=== PATIENT | female | born 1970 | race American Indian/Alaskan Native ===

== ENCOUNTER 2016-09-29 20:02 | Emergency (ER) | payer MEDICAID, OTHER ==
--- NOTE | 2016-09-29 20:14 | EDM.PDOC ---
ED HPI DIABETIC EMERGENCY - General Chief Complaint: Diabetic Complaint Stated Complaint: AMB Time Seen by Provider: 09/29/16 20:09 Source of Information: Reports: EMS History Limitations: Reports: Altered mental status - History of Present Illness INITIAL COMMENTS - FREE TEXT/NARRATIVE: EMS states was called to [facility] unresponsive. Pt somnolent but did verbalize wanting to go to bathroom and did so, then was in-out of consciousness, BS 479 @ scene. unable IV for narcan. Pt arrived unresponsive minimal reaction to corneal stim' - Related Data Allergies/ADRs: Allergies Allergy/AdvReac Type Severity Reaction Status Date / Time amoxicillin Allergy Cannot Verified 03/18/16 22:30 Remember cephalexin Allergy Cannot Verified 03/18/16 22:30 Remember ciprofloxacin Allergy Cannot Verified 03/18/16 22:30 Remember fentanyl Allergy Cannot Verified 03/18/16 22:30 Remember nitrofurantoin Allergy Cannot Verified 03/18/16 22:30 Remember NSAIDS (Non-Steroidal Allergy Bleeding Verified 03/18/16 22:30 Anti-Inflamma sumatriptan [From Imitrex] Allergy Hives Verified 03/18/16 22:30 sumatriptan succinate Allergy Hives Verified 03/18/16 22:30 [From Imitrex] tramadol AdvReac Bleeding Verified 03/18/16 22:30 Home Meds: Home Meds Insulin Detemir [Levemir Flexpen] 20 unit SQ BID 07/27/13 [History] Lisinopril 5 mg PO DAILY #30 tablet 09/13/14 [Rx] Multivitamin [Multivitamins] 1 each PO DAILY #30 capsule 09/13/14 [Rx] Ferrous Sulfate [Iron] 325 mg PO DAILY #15 capsule.er 08/07/15 [Rx] Pantoprazole [Protonix] 40 mg PO BIDAC #40 tab.cr 08/07/15 [Rx] buPROPion [Wellbutrin] 100 mg PO BID #14 tablet 08/07/15 [Rx] Insulin Aspart [Novolog Flexpen] 15 unit SQ QID 12/20/15 [History] Apixaban [Eliquis] 5 mg PO BID 06/13/16 [History] Past Medical History HEENT History: Reports: Impaired vision Cardiovascular History: Reports: Hypertension Respiratory History: Reports: Asthma Gastrointestinal History: Reports: GERD, Hepatitis Genitourinary History: Reports: Diabetic nephropathy [employer] History: Reports: , Other (see below) Other OB/BYN History: 4 c-sections Musculoskeletal History: Reports: Amputation Other Musculoskeletal History: bell amp Neurological History: Reports: Neuropathy, diabetic, Neuropathy, peripheral Psychiatric History: Reports: Addiction Endocrine/Metabolic History: Reports: Diabetes, type II, IDDM Hematologic History: Reports: Iron deficiency Immunologic History: Reports: None Oncologic (Cancer) History: Reports: None Dermatologic History: Reports: Cellulitis - Infectious Disease History Infectious Disease History: Reports: MRSA - Past Surgical History Female Surgical History: Reports: section, Hysterectomy Musculoskeletal Surgical History: Reports: Amputation, Other (see below) Other Musculoskeletal Surgeries/Procedures:: Bilateral BKA Social & Family History - Family History Family Medical History: Noncontributory - Tobacco Use Smoking Status *Q: Former Smoker Years of Tobacco use: 25 Packs/Tins Daily: 0.2 Used Tobacco, but Quit: Yes Month Tobacco Last Used: feb 2016 Second Hand Smoke Exposure: Yes - Caffeine Use Caffeine Use: Reports: Coffee, Soda, Tea - Alcohol Use Days Per Week of Alcohol Use: 0 - Recreational Drug Use Recreational Drug Use: No Drug Use in Last 12 Months: Yes Recreational Drug Type: Reports: Methamphetamine Recreational Drug Use Frequency: Not Used In Over 1 Month - Living Situation & Occupation Living situation: Reports: single, with family Occupation: disabled ED ROS GENERAL - Review of Systems Review Of Systems: ROS reveals no pertinent complaints other than HPI. ED EXAM GENERAL NO PERIP PULSE - Physical Exam Exam: See Below Exam Limited By: Altered mental status General Appearance: other (unresponsive with minimal corneal reaction) Eye Exam: bilateral eye: PERRL (ess ER @ 4mm) Ears: normal external exam, normal canal, normal TMs Nose: normal inspection Throat/Mouth: No airway compromise Head: atraumatic Neck: normal inspection Respiratory/Chest: no respiratory distress, no accessory muscle use, rhonchi Cardiovascular: regular rate, rhythm GI/Abdominal: other (BS increase) (Female) Exam: Other Neurological: unresponsive Skin Exam: Warm, Dry Lymphatic: no adenopathy Course - Vital Signs Last Recorded V/S: Last Vital Signs Temp 37.3 C 09/29/16 21:07 Pulse 91 09/29/16 21:07 Resp 19 09/29/16 21:07 BP 91/56 L 09/29/16 21:07 Pulse Ox 100 09/29/16 21:07 - Orders/Labs/Meds Orders: Active Orders 24 hr Category Date Time Status EKG 12 Lead [EKG Documentation Completion] [RC] STAT Care 09/29/16 20:08 Active Insert Urinary Catheter [OM.PC] Q24H Care 09/29/16 20:45 Ordered Urinary Catheter Assessment [RC] ASDIRECTED Care 09/29/16 20:34 Active CULTURE BLOOD [BC] Stat Lab 09/29/16 20:15 Results CULTURE URINE [RM] Stat Lab 09/29/16 21:46 Ordered HCG QUALITATIVE,URINE [URCHEM] Stat Lab 09/29/16 21:46 Ordered Sodium Chloride 0.9% [Normal Saline] 1,000 ml Med 09/29/16 20:30 Active IV ASDIRECTED Medication Orders Sodium Chloride (Normal Saline) 1,000 mls @ 150 mls/hr IV ASDIRECTED BRANDIE Last Admin: 09/29/16 20:32 Dose: 150 mls/hr Labs: Laboratory Tests 09/29/16 09/29/16 09/29/16 Range/Units 20:15 20:15 20:15 WBC 27.6 H* (5.0-10.0) 10^3/uL RBC 3.35 L (4.2-5.4) 10^6/uL Hgb 9.9 L (12.0-16.0) g/dL Hct 28.5 L (37.0-47.0) % MCV 85.1 (80-100) fL MCH 29.6 (27.0-34.0) pg MCHC 34.7 (33.0-35.0) g/dL Plt Count 637 H (150-450) 10^3/uL Neut % (Auto) 91.0 H (42.2-75.2) % Lymph % (Auto) 4.7 L (20.5-50.1) % [place] % (Auto) 4.1 (2-8) % Eos % (Auto) 0.1 L (1.0-3.0) % Baso % (Auto) 0.1 (0.0-1.0) % Add Manual Diff Yes Neutrophils % (Manual) 84 % Band Neutrophils % 7 % Lymphocytes % (Manual) 4 % Monocytes % (Manual) 4 % Eosinophils % (Manual) 1 % ABG pH (7.35-7.45) ABG pCO2 (35-45) mmHg ABG pO2 (70-100) mmHg ABG HCO3 (22-26) mmol/L ABG O2 Saturation (95-100) % ABG Base Excess ((-2)-(+3)) mmol/L Yann Test O2 Delivery Device Oxygen Flow Rate Sodium 126 L (135-145) mmol/L Potassium 4.2 (3.6-5.0) mmol/L Chloride 107 (101-111) mmol/L Carbon Dioxide 12.0 L (21.0-31.0) mmol/L Anion Gap 11.2 BUN 43 H (7-18) mg/dL Creatinine 1.9 H (0.6-1.3) mg/dL Est Cr Clr Drug Dosing TNP Estimated GFR (MDRD) 28 BUN/Creatinine Ratio 22.63 Glucose 398 H (74-105) mg/dL Lactic Acid 1.0 (0.5-2.2) mmol/L Calcium 8.0 L (8.4-10.2) mg/dl Total Bilirubin 0.2 (0.2-1.0) mg/dL AST 10 (10-42) IU/L ALT 13 (10-60) IU/L Alkaline Phosphatase 85 (42-121) IU/L Troponin I 0.02 (0.00-0.02) ng/ml Total Protein 6.2 L (6.7-8.2) g/dl Albumin 1.6 L (3.2-5.5) g/dl Globulin 4.6 Albumin/Globulin Ratio 0.35 Urine Color (YELLOW) Urine Appearance (CLEAR) Urine pH (5.0-9.0) Ur Specific [place] (1.005-1.030) Urine Protein (NEGATIVE) Urine Glucose (UA) (NEGATIVE) Urine Ketones (NEGATIVE) Urine Occult Blood (NEGATIVE) Urine Nitrite (NEGATIVE) Urine Bilirubin (NEGATIVE) Urine Urobilinogen (0.2-1.0) mg/dL Ur Leukocyte Esterase (NEGATIVE) Urine RBC /HPF Urine WBC (0-5/HPF) /HPF Ur Epithelial Cells /HPF Amorphous Sediment (0/HPF) /HPF Urine Bacteria (0-FEW/HPF) /HPF Urine Opiates Screen (NEGATIVE) Ur Oxycodone Screen (NEGATIVE) Urine Methadone Screen (NEGATIVE) Ur Barbiturates Screen (NEGATIVE) U Tricyclic Antidepress (NEGATIVE) Ur Phencyclidine Scrn (NEGATIVE) Ur Amphetamine Screen (NEGATIVE) U Methamphetamines Scrn (NEGATIVE) Urine MDMA Screen (NEGATIVE) U Benzodiazepines Scrn (NEGATIVE) Urine Cocaine Screen (NEGATIVE) U Marijuana (THC) Screen (NEGATIVE) Ethyl Alcohol < 5 mg/dL Ketones 09/29/16 09/29/16 09/29/16 Range/Units 20:15 20:55 20:55 WBC (5.0-10.0) 10^3/uL RBC (4.2-5.4) 10^6/uL Hgb (12.0-16.0) g/dL Hct (37.0-47.0) % MCV (80-100) fL MCH (27.0-34.0) pg MCHC (33.0-35.0) g/dL Plt Count (150-450) 10^3/uL Neut % (Auto) (42.2-75.2) % Lymph % (Auto) (20.5-50.1) % [place] % (Auto) (2-8) % Eos % (Auto) (1.0-3.0) % Baso % (Auto) (0.0-1.0) % Add Manual Diff Neutrophils % (Manual) % Band Neutrophils % % Lymphocytes % (Manual) % Monocytes % (Manual) % Eosinophils % (Manual) % ABG pH (7.35-7.45) ABG pCO2 (35-45) mmHg ABG pO2 (70-100) mmHg ABG HCO3 (22-26) mmol/L ABG O2 Saturation (95-100) % ABG Base Excess ((-2)-(+3)) mmol/L Yann Test O2 Delivery Device Oxygen Flow Rate Sodium (135-145) mmol/L Potassium (3.6-5.0) mmol/L Chloride (101-111) mmol/L Carbon Dioxide (21.0-31.0) mmol/L Anion Gap BUN (7-18) mg/dL Creatinine (0.6-1.3) mg/dL Est Cr Clr Drug Dosing Estimated GFR (MDRD) BUN/Creatinine Ratio Glucose (74-105) mg/dL Lactic Acid (0.5-2.2) mmol/L Calcium (8.4-10.2) mg/dl Total Bilirubin (0.2-1.0) mg/dL AST (10-42) IU/L ALT (10-60) IU/L Alkaline Phosphatase (42-121) IU/L Troponin I (0.00-0.02) ng/ml Total Protein (6.7-8.2) g/dl Albumin (3.2-5.5) g/dl Globulin Albumin/Globulin Ratio Urine Color Brown (YELLOW) Urine Appearance Turbid (CLEAR) Urine pH 5.0 (5.0-9.0) Ur Specific [place] 1.020 (1.005-1.030) Urine Protein >=300 H (NEGATIVE) Urine Glucose (UA) >=1000 H (NEGATIVE) Urine Ketones 15 H (NEGATIVE) Urine Occult Blood Large H (NEGATIVE) Urine Nitrite Negative (NEGATIVE) Urine Bilirubin Moderate H (NEGATIVE) Urine Urobilinogen 1.0 (0.2-1.0) mg/dL Ur Leukocyte Esterase Small H (NEGATIVE) Urine RBC >100 H /HPF Urine WBC 30-40 H (0-5/HPF) /HPF Ur Epithelial Cells Many H /HPF Amorphous Sediment Moderate H (0/HPF) /HPF Urine Bacteria Many H (0-FEW/HPF) /HPF Urine Opiates Screen Negative (NEGATIVE) Ur Oxycodone Screen Negative (NEGATIVE) Urine Methadone Screen Negative (NEGATIVE) Ur Barbiturates Screen Negative (NEGATIVE) U Tricyclic Antidepress Negative (NEGATIVE) Ur Phencyclidine Scrn Negative (NEGATIVE) Ur Amphetamine Screen Positive H (NEGATIVE) U Methamphetamines Scrn Positive H (NEGATIVE) Urine MDMA Screen Negative (NEGATIVE) U Benzodiazepines Scrn Negative (NEGATIVE) Urine Cocaine Screen Negative (NEGATIVE) U Marijuana (THC) Screen Negative (NEGATIVE) Ethyl Alcohol mg/dL Ketones Negative 09/29/16 Range/Units 21:07 WBC (5.0-10.0) 10^3/uL RBC (4.2-5.4) 10^6/uL Hgb (12.0-16.0) g/dL Hct (37.0-47.0) % MCV (80-100) fL MCH (27.0-34.0) pg MCHC (33.0-35.0) g/dL Plt Count (150-450) 10^3/uL Neut % (Auto) (42.2-75.2) % Lymph % (Auto) (20.5-50.1) % [place] % (Auto) (2-8) % Eos % (Auto) (1.0-3.0) % Baso % (Auto) (0.0-1.0) % Add Manual Diff Neutrophils % (Manual) % Band Neutrophils % % Lymphocytes % (Manual) % Monocytes % (Manual) % Eosinophils % (Manual) % ABG pH 7.26 L (7.35-7.45) ABG pCO2 29 L (35-45) mmHg ABG pO2 86 (70-100) mmHg ABG HCO3 12.3 L (22-26) mmol/L ABG O2 Saturation 98 (95-100) % ABG Base Excess -13 L ((-2)-(+3)) mmol/L Yann Test pos O2 Delivery Device Room air Oxygen Flow Rate 0 Sodium (135-145) mmol/L Potassium (3.6-5.0) mmol/L Chloride (101-111) mmol/L Carbon Dioxide (21.0-31.0) mmol/L Anion Gap BUN (7-18) mg/dL Creatinine (0.6-1.3) mg/dL Est Cr Clr Drug Dosing Estimated GFR (MDRD) BUN/Creatinine Ratio Glucose (74-105) mg/dL Lactic Acid (0.5-2.2) mmol/L Calcium (8.4-10.2) mg/dl Total Bilirubin (0.2-1.0) mg/dL AST (10-42) IU/L ALT (10-60) IU/L Alkaline Phosphatase (42-121) IU/L Troponin I (0.00-0.02) ng/ml Total Protein (6.7-8.2) g/dl Albumin (3.2-5.5) g/dl Globulin Albumin/Globulin Ratio Urine Color (YELLOW) Urine Appearance (CLEAR) Urine pH (5.0-9.0) Ur Specific [place] (1.005-1.030) Urine Protein (NEGATIVE) Urine Glucose (UA) (NEGATIVE) Urine Ketones (NEGATIVE) Urine Occult Blood (NEGATIVE) Urine Nitrite (NEGATIVE) Urine Bilirubin (NEGATIVE) Urine Urobilinogen (0.2-1.0) mg/dL Ur Leukocyte Esterase (NEGATIVE) Urine RBC /HPF Urine WBC (0-5/HPF) /HPF Ur Epithelial Cells /HPF Amorphous Sediment (0/HPF) /HPF Urine Bacteria (0-FEW/HPF) /HPF Urine Opiates Screen (NEGATIVE) Ur Oxycodone Screen (NEGATIVE) Urine Methadone Screen (NEGATIVE) Ur Barbiturates Screen (NEGATIVE) U Tricyclic Antidepress (NEGATIVE) Ur Phencyclidine Scrn (NEGATIVE) Ur Amphetamine Screen (NEGATIVE) U Methamphetamines Scrn (NEGATIVE) Urine MDMA Screen (NEGATIVE) U Benzodiazepines Scrn (NEGATIVE) Urine Cocaine Screen (NEGATIVE) U Marijuana (THC) Screen (NEGATIVE) Ethyl Alcohol mg/dL Ketones Meds: Medications Generic Name Dose Route Start Last Admin Trade Name Freq PRN Reason Stop Dose Admin Sodium Chloride 1,000 mls @ 150 mls/hr 09/29/16 20:30 09/29/16 20:32 Normal Saline IV 150 mls/hr ASDIRECTED BRANDIE Administration Discontinued Medications Generic Name Dose Route Start Last Admin Trade Name Freq PRN Reason Stop Dose Admin Gentamicin Sulfate 1,000 mg 09/29/16 21:46 Gentamicin IV 09/29/16 21:47 ONETIME ONE Insulin Human Regular 5 unit 09/29/16 21:22 Novolin R IVPUSH 09/29/16 21:23 ONETIME ONE Protocol Naloxone HCl 2 mg 09/29/16 20:56 09/29/16 21:01 Narcan IVPUSH 09/29/16 20:57 2 mg ONETIME ONE Administration - Re-Assessments/Exams Free Text/Narrative Re-Assessment/Exam: 09/29/16 20:23 s/p narcan=woke up more alert 09/29/16 21:50 Pt in out responsiveness. Departure - Departure Time of Disposition: 21:50 Disposition: DC/Tfer to Acute Hospital 02 Condition: fair Clinical Impression: Dehydration, Methamphetamine abuse DKA (diabetic ketoacidoses) Qualifiers: Diabetes mellitus type: type 2 Diabetes mellitus complication detail: without coma Qualified Code(s): E13.10 - Other specified diabetes mellitus with ketoacidosis without coma UTI (urinary tract infection) Qualifiers: Urinary tract infection type: site unspecified Hematuria presence: with hematuria Qualified Code(s): N39.0 - Urinary tract infection, site not specified ; R31.9 - Hematuria, unspecified Forms: Interfacility Transfer EMTALA - My Orders Last 24 Hours: My Active Orders 09/29/16 20:08 EKG 12 Lead [EKG Documentation Completion] [RC] STAT 09/29/16 20:15 CULTURE BLOOD [BC] Stat 09/29/16 20:30 Sodium Chloride 0.9% [Normal Saline] 1,000 ml IV ASDIRECTED 09/29/16 20:34 Urinary Catheter Assessment [RC] ASDIRECTED 09/29/16 20:45 Insert Urinary Catheter [OM.PC] Q24H 09/29/16 21:46 CULTURE URINE [RM] Stat HCG QUALITATIVE,URINE [URCHEM] Stat - Assessment/Plan Last 24 Hours: My Active Orders 09/29/16 20:08 EKG 12 Lead [EKG Documentation Completion] [RC] STAT 09/29/16 20:15 CULTURE BLOOD [BC] Stat 09/29/16 20:30 Sodium Chloride 0.9% [Normal Saline] 1,000 ml IV ASDIRECTED 09/29/16 20:34 Urinary Catheter Assessment [RC] ASDIRECTED 09/29/16 20:45 Insert Urinary Catheter [OM.PC] Q24H 09/29/16 21:46 CULTURE URINE [RM] Stat HCG QUALITATIVE,URINE [URCHEM] Stat
[2016-09-29] MEDS ORDERED: Sodium Chloride 0.9% 1,000 ML IV SCH (20:30)
[2016-09-29 20:41] LABS: CHLORIDE,CL 107 mmol/L (101-111); SODIUM,NA 126 mmol/L (135-145)
[2016-09-29] MEDS ORDERED: Naloxone 2 MG/2 ML Syringe IVPUSH ONE (20:56)
[2016-09-29 21:16] LABS: O2 DELIVERY DEVICE ROOM AIR; O2 FLOW RATE 0
[2016-09-29 21:17] LABS: BASE EXCESS ARTERIAL -13 mmol/L ((-2)-(+3)); BICARBONATE,ARTERIAL 12.3 mmol/L (22-26); O2 SATURATION ARTERIAL 98 % (95-100); PCO2 ARTERIAL 29 mmHg (35-45); PO2 ARTERIAL 86 mmHg (70-100)
[2016-09-29 21:19] LABS: ALLEN TEST pos
[2016-09-29] MEDS ORDERED: Insulin Regular, Human 100 Units/ML 10 ML Vial IVPUSH ONE (21:22)
[2016-09-29] MEDS ORDERED: Gentamicin Pediatric 10 MG/ML 2 ML SDV IV ONE (21:46)
[2016-09-29 22:18] VITALS: BP 91/52
--- NOTE | 2016-10-01 07:15 | EKG ---
09/29/2016- MAE DYKES - EKG done on a 46-year-old female, showing sinus rhythm, heart rate of 90 beats per minute, normal axis, normal intervals, no acute ST wave changes. [facility] /[id number]
== END 2016-09-29 22:39 ==
LOC: DL.ED 20:02
DX: E13.10 Other specified diabetes mellitus with ketoacidosis without coma (principal); N39.0 Urinary tract infection, site not specified; F15.10 Other stimulant abuse, uncomplicated; E86.0 Dehydration; I10 Essential (primary) hypertension; J45.909 Unspecified asthma, uncomplicated; K21.9 Gastro-esophageal reflux disease without esophagitis; Z79.4 Long term (current) use of insulin; Z79.899 Other long term (current) drug therapy; Z87.891 Personal history of nicotine dependence; Z88.1 Allergy status to other antibiotic agents; Z88.5 Allergy status to narcotic agent; Z88.8 Allergy status to other drugs, medicaments and biological substances; Z90.710 Acquired absence of both cervix and uterus; Z98.890 Other specified postprocedural states
CPT/HCPCS: 36415; 36600; 51702; 80053; 80305; 81001; 81025; 82009; 82803; 82962; 83605; 84484; 85025; 87040; 87077; 87086; 87088; 87186; 93005; 96365; 96366; 96368; 96375; 99285; G0480; J1580; J1815; J2310; J7030; J7050

== ENCOUNTER 2016-10-14 06:22 | Inpatient (IN) | payer MEDICAID, OTHER ==
--- NOTE | 2016-10-14 06:16 | EDM.PDOC ---
<Prudencio Dennis M - Last Filed: 10/14/16 06:11> ED HPI GENERAL MEDICAL PROBLEM - General Stated Complaint: IN BY AMBULANCE Time Seen by Provider: 10/14/16 06:05 Source of Information: Reports: Patient History Limitations: Reports: No limitations - History of Present Illness INITIAL COMMENTS - FREE TEXT/NARRATIVE: This 46 yo female patient reports to the ED with [facility] due to right sided weakness and numbness in her right upper extremity. The patient also reports generalized vision changes ("everything is blurry"). The patient reports she was normal last night. The patient denies any recent falls. The patient was admitted to [place] about 1 week ago for low blood pressure, but released after 2 eays. The patient reports a history of a TIA, diabetes and hypertension. Onset: today Duration: Constant Location: Reports: head, upper extremity, right Quality: Reports: Dull Severity: moderate Improves with: Reports: None Worsens with: Reports: None Associated Symptoms: Reports: weakness (right side) - Related Data Allergies Allergy/AdvReac Type Severity Reaction Status Date / Time amoxicillin Allergy Cannot Verified 10/14/16 06:48 Remember cephalexin Allergy Cannot Verified 10/14/16 06:48 Remember ciprofloxacin Allergy Cannot Verified 10/14/16 06:48 Remember fentanyl Allergy Cannot Verified 10/14/16 06:48 Remember nitrofurantoin Allergy Cannot Verified 10/14/16 06:48 Remember NSAIDS (Non-Steroidal Allergy Bleeding Verified 10/14/16 06:48 Anti-Inflamma sumatriptan [From Imitrex] Allergy Hives Verified 10/14/16 06:48 sumatriptan succinate Allergy Hives Verified 10/14/16 06:48 [From Imitrex] tramadol AdvReac Bleeding Verified 10/14/16 06:48 Home Meds: Home Meds Insulin Detemir [Levemir Flexpen] 20 unit SQ BID 07/27/13 [History] Lisinopril 5 mg PO DAILY #30 tablet 09/13/14 [Rx] Multivitamin [Multivitamins] 1 each PO DAILY #30 capsule 09/13/14 [Rx] Ferrous Sulfate [Iron] 325 mg PO DAILY #15 capsule.er 08/07/15 [Rx] Pantoprazole [ProTONIX] 40 mg PO BIDAC #40 tab.cr 08/07/15 [Rx] buPROPion [Wellbutrin] 100 mg PO BID #14 tablet 08/07/15 [Rx] Insulin Aspart [Novolog Flexpen] 15 unit SQ QID 12/20/15 [History] Apixaban [Eliquis] 5 mg PO BID 06/13/16 [History] Past Medical History HEENT History: Reports: Impaired vision Cardiovascular History: Reports: Hypertension Respiratory History: Reports: Asthma Gastrointestinal History: Reports: GERD, Hepatitis Genitourinary History: Reports: Diabetic nephropathy 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: , Other (see below) Other OB/BYN History: 4 c-sections Musculoskeletal History: Reports: Amputation Other Musculoskeletal History: bell amp Neurological History: Reports: Neuropathy, diabetic, Neuropathy, peripheral Psychiatric History: Reports: Addiction Endocrine/Metabolic History: Reports: Diabetes, type II, IDDM Hematologic History: Reports: Iron deficiency Immunologic History: Reports: None Oncologic (Cancer) History: Reports: None Dermatologic History: Reports: Cellulitis - Infectious Disease History Infectious Disease History: Reports: MRSA - Past Surgical History Female Surgical History: Reports: section, Hysterectomy Musculoskeletal Surgical History: Reports: Amputation, Other (see below) Other Musculoskeletal Surgeries/Procedures:: Bilateral BKA Social & Family History - Family History Family Medical History: Noncontributory - Tobacco Use Smoking Status *Q: Former Smoker Years of Tobacco use: 25 Packs/Tins Daily: 0.2 Used Tobacco, but Quit: Yes Month Tobacco Last Used: feb 2016 Second Hand Smoke Exposure: Yes - Caffeine Use Caffeine Use: Reports: Coffee, Soda, Tea - Alcohol Use Days Per Week of Alcohol Use: 0 - Recreational Drug Use Recreational Drug Use: No Drug Use in Last 12 Months: Yes Recreational Drug Type: Reports: Methamphetamine Recreational Drug Use Frequency: Not Used In Over 1 Month - Living Situation & Occupation Living situation: Reports: single, with family Occupation: disabled ED ROS GENERAL - Review of Systems Review Of Systems: ROS reveals no pertinent complaints other than HPI. ED EXAM, GENERAL - Physical Exam Exam: See Below Exam Limited By: No limitations General Appearance: alert, WD/WN, moderate distress, thin Eye Exam: bilateral eye: EOMI, normal inspection, PERRL Ears: normal external exam, normal canal, hearing grossly normal, normal TMs Nose: normal inspection, normal mucosa, no blood Throat/Mouth: Normal inspection, Normal lips, Normal teeth, Normal gums, Normal oropharynx, Normal voice, No airway compromise Head: atraumatic, normocephalic Neck: normal inspection, supple, non-tender, full range of motion Respiratory/Chest: no respiratory distress, lungs clear, normal breath sounds, no accessory muscle use, chest non-tender Cardiovascular: normal peripheral pulses, regular rate, rhythm, no edema, no gallop, no JVD, no murmur, no rub GI/Abdominal: normal bowel sounds, soft, non tender, no organomegaly, no distention, no abnormal bruit, no mass (Female) Exam: Deferred Rectal (Female) Exam: Deferred Extremities: other (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 Bilateral below the knee amputations) Neurological: alert, oriented, CN II-XII intact, normal cognition Psychiatric: anxious, flat affect Skin Exam: Warm, Dry, Intact, Normal color, No rash Lymphatic: no adenopathy Course - Vital Signs Last Recorded V/S: Last Vital Signs Temp 35.7 C 10/14/16 06:00 Pulse 83 10/14/16 06:00 Resp 16 10/14/16 06:00 BP 109/73 10/14/16 06:00 Pulse Ox 100 10/14/16 06:00 - Orders/Labs/Meds Orders: Active Orders 24 hr Category Date Time Status Blood Glucose Check, Bedside [RC] ONETIME Care 10/14/16 07:48 Active EKG Documentation Completion [RC] URGENT Care 10/14/16 06:04 Active Sodium Chloride 0.9% [Normal Saline] 1,000 ml Med 10/14/16 07:51 Active IV ONETIME Medication Orders Sodium Chloride (Normal Saline) 1,000 mls @ 150 mls/hr IV ONETIME ONE Stop: 10/14/16 14:30 Labs: Laboratory Tests 10/14/16 10/14/16 10/14/16 Range/Units 06:13 06:13 06:13 WBC 13.2 H (5.0-10.0) 10^3/uL RBC 2.71 L (4.2-5.4) 10^6/uL Hgb 7.7 L (12.0-16.0) g/dL Hct 22.9 L (37.0-47.0) % MCV 84.5 (80-100) fL MCH 28.4 (27.0-34.0) pg MCHC 33.6 (33.0-35.0) g/dL Plt Count 874 H (150-450) 10^3/uL Neut % (Auto) 72.3 (42.2-75.2) % Lymph % (Auto) 18.4 L (20.5-50.1) % [place] % (Auto) 7.4 (2-8) % Eos % (Auto) 1.7 (1.0-3.0) % Baso % (Auto) 0.2 (0.0-1.0) % Add Manual Diff Yes Neutrophils % (Manual) 72 % Band Neutrophils % 1 % Lymphocytes % (Manual) 22 % Monocytes % (Manual) 3 % Eosinophils % (Manual) 2 % PT 40.4 H (9.0-12.0) SEC INR 4.0 H (0.9-1.2) ABG pH (7.35-7.45) ABG pCO2 (35-45) mmHg ABG pO2 (70-100) mmHg ABG HCO3 (22-26) mmol/L ABG O2 Saturation (95-100) % ABG Base Excess ((-2)-(+3)) mmol/L Yann Test O2 Delivery Device Oxygen Flow Rate Sodium 123 L (135-145) mmol/L Potassium 4.1 (3.6-5.0) mmol/L Chloride 99 L (101-111) mmol/L Carbon Dioxide 16.0 L (21.0-31.0) mmol/L Anion Gap 12.1 BUN 22 H (7-18) mg/dL Creatinine 1.9 H (0.6-1.3) mg/dL Est Cr Clr Drug Dosing 28.70 mL/min Estimated GFR (MDRD) 28 BUN/Creatinine Ratio 11.57 Glucose 635 H* (74-105) mg/dL Calcium 7.7 L (8.4-10.2) mg/dl Total Bilirubin 0.3 (0.2-1.0) mg/dL AST 10 (10-42) IU/L ALT 10 (10-60) IU/L Alkaline Phosphatase 93 (42-121) IU/L Troponin I < 0.02 (0.00-0.02) ng/ml Total Protein 6.1 L (6.7-8.2) g/dl Albumin 1.4 L (3.2-5.5) g/dl Globulin 4.7 Albumin/Globulin Ratio 0.30 Urine Color (YELLOW) Urine Appearance (CLEAR) Urine pH (5.0-9.0) Ur Specific [place] (1.005-1.030) Urine Protein (NEGATIVE) Urine Glucose (UA) (NEGATIVE) Urine Ketones (NEGATIVE) Urine Occult Blood (NEGATIVE) Urine Nitrite (NEGATIVE) Urine Bilirubin (NEGATIVE) Urine Urobilinogen (0.2-1.0) mg/dL Ur Leukocyte Esterase (NEGATIVE) Urine RBC /HPF Urine WBC (0-5/HPF) /HPF Ur Epithelial Cells /HPF Urine Bacteria (0-FEW/HPF) /HPF Urine Other Urine Yeast (0/HPF) /HPF Urine Opiates Screen (NEGATIVE) Ur Oxycodone Screen (NEGATIVE) Urine Methadone Screen (NEGATIVE) Ur Barbiturates Screen (NEGATIVE) U Tricyclic Antidepress (NEGATIVE) Ur Phencyclidine Scrn (NEGATIVE) Ur Amphetamine Screen (NEGATIVE) U Methamphetamines Scrn (NEGATIVE) Urine MDMA Screen (NEGATIVE) U Benzodiazepines Scrn (NEGATIVE) Urine Cocaine Screen (NEGATIVE) U Marijuana (THC) Screen (NEGATIVE) Ketones 10/14/16 10/14/16 10/14/16 Range/Units 06:13 06:45 06:45 WBC (5.0-10.0) 10^3/uL RBC (4.2-5.4) 10^6/uL Hgb (12.0-16.0) g/dL Hct (37.0-47.0) % MCV (80-100) fL MCH (27.0-34.0) pg MCHC (33.0-35.0) g/dL Plt Count (150-450) 10^3/uL Neut % (Auto) (42.2-75.2) % Lymph % (Auto) (20.5-50.1) % Bucks % (Auto) (2-8) % Eos % (Auto) (1.0-3.0) % Baso % (Auto) (0.0-1.0) % Add Manual Diff Neutrophils % (Manual) % Band Neutrophils % % Lymphocytes % (Manual) % Monocytes % (Manual) % Eosinophils % (Manual) % PT (9.0-12.0) SEC INR (0.9-1.2) ABG pH (7.35-7.45) ABG pCO2 (35-45) mmHg ABG pO2 (70-100) mmHg ABG HCO3 (22-26) mmol/L ABG O2 Saturation (95-100) % ABG Base Excess ((-2)-(+3)) mmol/L Yann Test O2 Delivery Device Oxygen Flow Rate Sodium (135-145) mmol/L Potassium (3.6-5.0) mmol/L Chloride (101-111) mmol/L Carbon Dioxide (21.0-31.0) mmol/L Anion Gap BUN (7-18) mg/dL Creatinine (0.6-1.3) mg/dL Est Cr Clr Drug Dosing mL/min Estimated GFR (MDRD) BUN/Creatinine Ratio Glucose (74-105) mg/dL Calcium (8.4-10.2) mg/dl Total Bilirubin (0.2-1.0) mg/dL AST (10-42) IU/L ALT (10-60) IU/L Alkaline Phosphatase (42-121) IU/L Troponin I (0.00-0.02) ng/ml Total Protein (6.7-8.2) g/dl Albumin (3.2-5.5) g/dl Globulin Albumin/Globulin Ratio Urine Color Yellow (YELLOW) Urine Appearance Turbid (CLEAR) Urine pH 5.5 (5.0-9.0) Ur Specific [place] 1.015 (1.005-1.030) Urine Protein >=300 H (NEGATIVE) Urine Glucose (UA) 500 H (NEGATIVE) Urine Ketones Negative (NEGATIVE) Urine Occult Blood Large H (NEGATIVE) Urine Nitrite Negative (NEGATIVE) Urine Bilirubin Negative (NEGATIVE) Urine Urobilinogen 0.2 (0.2-1.0) mg/dL Ur Leukocyte Esterase Small H (NEGATIVE) Urine RBC 5-10 H /HPF Urine WBC Semi-packed H (0-5/HPF) /HPF Ur Epithelial Cells Rare /HPF Urine Bacteria Occasional (0-FEW/HPF) /HPF Urine Other Urine Yeast Moderate H (0/HPF) /HPF Urine Opiates Screen Negative (NEGATIVE) Ur Oxycodone Screen Negative (NEGATIVE) Urine Methadone Screen Negative (NEGATIVE) Ur Barbiturates Screen Negative (NEGATIVE) U Tricyclic Antidepress Negative (NEGATIVE) Ur Phencyclidine Scrn Negative (NEGATIVE) Ur Amphetamine Screen Negative (NEGATIVE) U Methamphetamines Scrn Negative (NEGATIVE) Urine MDMA Screen Negative (NEGATIVE) U Benzodiazepines Scrn Negative (NEGATIVE) Urine Cocaine Screen Negative (NEGATIVE) U Marijuana (THC) Screen Positive H (NEGATIVE) Ketones Negative 10/14/16 Range/Units 07:50 WBC (5.0-10.0) 10^3/uL RBC (4.2-5.4) 10^6/uL Hgb (12.0-16.0) g/dL Hct (37.0-47.0) % MCV (80-100) fL MCH (27.0-34.0) pg MCHC (33.0-35.0) g/dL Plt Count (150-450) 10^3/uL Neut % (Auto) (42.2-75.2) % Lymph % (Auto) (20.5-50.1) % [place] % (Auto) (2-8) % Eos % (Auto) (1.0-3.0) % Baso % (Auto) (0.0-1.0) % Add Manual Diff Neutrophils % (Manual) % Band Neutrophils % % Lymphocytes % (Manual) % Monocytes % (Manual) % Eosinophils % (Manual) % PT (9.0-12.0) SEC INR (0.9-1.2) ABG pH 7.27 L (7.35-7.45) ABG pCO2 36 (35-45) mmHg ABG pO2 80 (70-100) mmHg ABG HCO3 16.2 L (22-26) mmol/L ABG O2 Saturation 96 (95-100) % ABG Base Excess -9 L ((-2)-(+3)) mmol/L Yann Test pos O2 Delivery Device Room air Oxygen Flow Rate 0 Sodium (135-145) mmol/L Potassium (3.6-5.0) mmol/L Chloride (101-111) mmol/L Carbon Dioxide (21.0-31.0) mmol/L Anion Gap BUN (7-18) mg/dL Creatinine (0.6-1.3) mg/dL Est Cr Clr Drug Dosing mL/min Estimated GFR (MDRD) BUN/Creatinine Ratio Glucose (74-105) mg/dL Calcium (8.4-10.2) mg/dl Total Bilirubin (0.2-1.0) mg/dL AST (10-42) IU/L ALT (10-60) IU/L Alkaline Phosphatase (42-121) IU/L Troponin I (0.00-0.02) ng/ml Total Protein (6.7-8.2) g/dl Albumin (3.2-5.5) g/dl Globulin Albumin/Globulin Ratio Urine Color (YELLOW) Urine Appearance (CLEAR) Urine pH (5.0-9.0) Ur Specific [place] (1.005-1.030) Urine Protein (NEGATIVE) Urine Glucose (UA) (NEGATIVE) Urine Ketones (NEGATIVE) Urine Occult Blood (NEGATIVE) Urine Nitrite (NEGATIVE) Urine Bilirubin (NEGATIVE) Urine Urobilinogen (0.2-1.0) mg/dL Ur Leukocyte Esterase (NEGATIVE) Urine RBC /HPF Urine WBC (0-5/HPF) /HPF Ur Epithelial Cells /HPF Urine Bacteria (0-FEW/HPF) /HPF Urine Other Urine Yeast (0/HPF) /HPF Urine Opiates Screen (NEGATIVE) Ur Oxycodone Screen (NEGATIVE) Urine Methadone Screen (NEGATIVE) Ur Barbiturates Screen (NEGATIVE) U Tricyclic Antidepress (NEGATIVE) Ur Phencyclidine Scrn (NEGATIVE) Ur Amphetamine Screen (NEGATIVE) U Methamphetamines Scrn (NEGATIVE) Urine MDMA Screen (NEGATIVE) U Benzodiazepines Scrn (NEGATIVE) Urine Cocaine Screen (NEGATIVE) U Marijuana (THC) Screen (NEGATIVE) Ketones Meds: Medications Generic Name Dose Route Start Last Admin Trade Name Freq PRN Reason Stop Dose Admin Sodium Chloride 1,000 mls @ 150 mls/hr 10/14/16 07:51 Normal Saline IV 10/14/16 14:30 ONETIME ONE Departure - Departure Disposition: Admitted As Inpatient 65 Clinical Impression: Hyponatremia syndrome, Weakness of right arm Diabetic acidosis without coma Qualifiers: Diabetes mellitus type: type 2 Qualified Code(s): E13.10 - Other specified diabetes mellitus with ketoacidosis without coma Forms: ED Department Discharge - My Orders Last 24 Hours: My Active Orders 10/14/16 07:48 Blood Glucose Check, Bedside [RC] ONETIME 10/14/16 07:51 Sodium Chloride 0.9% [Normal Saline] 1,000 ml IV ONETIME - Assessment/Plan Last 24 Hours: My Active Orders 10/14/16 07:48 Blood Glucose Check, Bedside [RC] ONETIME 10/14/16 07:51 Sodium Chloride 0.9% [Normal Saline] 1,000 ml IV ONETIME <Luca Tyler - Last Filed: 10/14/16 08:20> ED HPI GENERAL MEDICAL PROBLEM - History of Present Illness INITIAL COMMENTS - FREE TEXT/NARRATIVE: Assumed care of pt from Prudencio HERNANDEZ at [id number] shift change with lab results complete and pt pending admission for right sided weakness, diabetic acidosis with hyperglycemia, without ketosis, and hyponatremia. Lower Abdomen Pain Score (Numeric/FACES): 5 Course - Radiology Interpretation Free Text/Narrative:: CT Head: Rad. report reviewed. Departure - Departure Time of Disposition: 08:00 (Admit to Dr. Moralez) Condition: serious
[2016-10-14 06:55] LABS: CHLORIDE,CL 99 mmol/L (101-111); SODIUM,NA 123 mmol/L (135-145)
[2016-10-14] MEDS ORDERED: Sodium Chloride 0.9% 1,000 ML IV ONE (07:51)
[2016-10-14 07:55] LABS: O2 DELIVERY DEVICE ROOM AIR; O2 FLOW RATE 0
[2016-10-14 07:56] LABS: BASE EXCESS ARTERIAL -9 mmol/L ((-2)-(+3)); BICARBONATE,ARTERIAL 16.2 mmol/L (22-26); O2 SATURATION ARTERIAL 96 % (95-100); PCO2 ARTERIAL 36 mmHg (35-45); PO2 ARTERIAL 80 mmHg (70-100)
[2016-10-14 07:58] LABS: ALLEN TEST pos
[2016-10-14 09:27] VITALS: BP 109/70
[2016-10-14] MEDS ORDERED: Zolpidem 5 MG Tab PO PRN (09:31)
[2016-10-14] MEDS ORDERED: Acetaminophen/HYDROcodone 325-10 MG Tab PO PRN (09:31)
[2016-10-14] MEDS ORDERED: Promethazine 25 MG/ML SDV IM PRN (09:31)
[2016-10-14] MEDS ORDERED: Ondansetron 4 MG/2 ML SDV IVPUSH PRN (09:31)
[2016-10-14] MEDS ORDERED: Acetaminophen 325 MG Tab PO PRN (09:31)
[2016-10-14] MEDS ORDERED: Polyethylene Glycol 3350 Powder 17 GM Packet PO PRN (09:31)
[2016-10-14] MEDS ORDERED: Enoxaparin 30 MG/0.3 ML Syringe SUBCUT SCH (09:45)
[2016-10-14] MEDS ORDERED: Sodium Chloride 0.9% 1,000 ML IV SCH (09:45)
[2016-10-14] MEDS ORDERED: Fluconazole 100 MG Tab PO ONE (09:45)
[2016-10-14] MEDS ORDERED: Ondansetron 4 MG Tab.DIS PO PRN (09:52)
[2016-10-14] MEDS ORDERED: Lisinopril 5 MG Tab PO SCH (10:00)
[2016-10-14] MEDS ORDERED: atorvaSTATin 20 MG Tab PO SCH (10:00)
[2016-10-14] MEDS ORDERED: Multivitamins,Therapeutic Tab PO SCH (10:00)
[2016-10-14] MEDS ORDERED: Pantoprazole 40 MG Tab.CR PO SCH (10:00)
[2016-10-14] MEDS ORDERED: Non-Formulary Medication 1 Each (Bupropion [Wellbutrin] 100 MG) PO SCH (10:00)
[2016-10-14] MEDS ORDERED: cefTRIAXone 1 GM in Sodium Chloride 0.9% 50 ML IV SCH (10:00)
[2016-10-14] MEDS ORDERED: Insulin Detemir 100 Units/ML 3 ML Pen SUBCUT SCH (10:00)
[2016-10-14] MEDS ORDERED: Ferrous Sulfate 325 MG Tab PO SCH (10:15)
--- NOTE | 2016-10-14 10:37 | PCM.HP ---
H&P History of Present Illness - General Date of Service: 10/14/16 Admit Problem/Dx: Admission Diagnosis/Problem Admission Diagnosis/Problem Hyperglycemia Source of Information: Patient History Limitations: Reports: No limitations - History of Present Illness Initial Comments - Free Text/Narative: patient present to the emergency room complaining of right-sided (arm more than leg) weakness in addition to generalized weakness started the yesterday evening. Her brother checked her blood sugar and device give breathing as high. She took her insulin as prescribed. On review of systems patient admitted having urinary frequency and dysuria for the last 3 weeks. At that time she went to my not for high blood pressure. According to her they prescribed her antibiotics but she never filled the prescription. Please ago [facility] [place] and was prescribed doxycycline for UTI and has been taking it for the last 2 days. Symptoms are still the same. She admitted having the chills yesterday but no fever. She admits having generalized body aches but it seems to be chronic for her. She denies change in vision, facial drooping, difficulty swallowing, numbness or tingling, seizure, nausea, vomiting, headache , diarrhea, or any other symptoms. Patient states that she had left-sided brain aneurysm status post clips done when she was 12-year-old at [facility] in [place]. patient stated that she is not supposed to take aspirin or to the brain aneurysm. In regard to her drug allergies patient states that she never had breathing symptoms and all what she had was nausea from her drug allergies. in the ER her WBC 13.2. no left shift. Hemoglobin 7.7. INR 4.0. PH on ABG 7.27. ABG HCO3 ABG 16.2. troponin less than 0.02. sodium 1.3. Potassium 4.1. Carbon dioxide 16.0. Anion gap 12.1. BUN 22. Creatinine 1.9. Glucose 635.UA shows large occult blood, small leukocyte esterase, semi-packed WBC, moderate yeast. urine drug screen is positive only for marijuana. head CT scan was unremarkable for acute findings and report did not mention clips. in ER she was given 1 L of normal saline as a bolus. upon addition I ordered NovoLog 15 units subcutaneous and Levemir 25 units b.i.d. I ordered urine and blood culture and started her ceftriaxone IV. she was started on sliding scale insulin. Lower Abdomen Pain Score (Numeric/FACES): 5 - Related Data Allergies/Adverse Reactions: Allergies Allergy/AdvReac Type Severity Reaction Status Date / Time amoxicillin Allergy Cannot Verified 10/14/16 06:48 Remember cephalexin Allergy Cannot Verified 10/14/16 06:48 Remember ciprofloxacin Allergy Cannot Verified 10/14/16 06:48 Remember fentanyl Allergy Cannot Verified 10/14/16 06:48 Remember nitrofurantoin Allergy Cannot Verified 10/14/16 06:48 Remember NSAIDS (Non-Steroidal Allergy Bleeding Verified 10/14/16 06:48 Anti-Inflamma sumatriptan [From Imitrex] Allergy Hives Verified 10/14/16 06:48 sumatriptan succinate Allergy Hives Verified 10/14/16 06:48 [From Imitrex] tramadol AdvReac Bleeding Verified 10/14/16 06:48 Home Medications: Home Meds Insulin Detemir [Levemir Flexpen] 20 unit SQ BID 07/27/13 [History] Multivitamin [Multivitamins] 1 each PO DAILY #30 capsule 09/13/14 [Rx] Ferrous Sulfate [Iron] 325 mg PO DAILY #15 capsule.er 08/07/15 [Rx] Insulin Aspart [Novolog Flexpen] 15 unit SQ QID 12/20/15 [History] Ondansetron [Ondansetron ODT] 8 mg PO Q8H PRN 10/14/16 [History] Pantoprazole [ProTONIX] 40 mg PO DAILY 10/14/16 [History] Warfarin Sodium [Jantoven] 5 mg PO DAILY 10/14/16 [History] atorvaSTATin [Lipitor] 40 mg PO DAILY 10/14/16 [History] buPROPion HCl [Wellbutrin Sr] 150 mg PO BID 10/14/16 [History] Past Medical History HEENT History: Reports: Impaired vision Cardiovascular History: Reports: Blood clots/VTE/DVT, Hypertension Respiratory History: Reports: Asthma Gastrointestinal History: Reports: GERD, Hepatitis Genitourinary History: Reports: Diabetic nephropathy NUCLEAR MEDICAL TECH History: Reports: , Other (see below) Other OB/BYN History: 4 c-sections Musculoskeletal History: Reports: Amputation Other Musculoskeletal History: bell amp Neurological History: Reports: Neuropathy, diabetic, Neuropathy, peripheral Psychiatric History: Reports: Addiction Endocrine/Metabolic History: Reports: Diabetes, type II, IDDM Hematologic History: Reports: Iron deficiency Immunologic History: Reports: None Oncologic (Cancer) History: Reports: None Dermatologic History: Reports: Cellulitis - Infectious Disease History Infectious Disease History: Reports: Hepatitis C - Past Surgical History Cardiovascular Surgical History: Reports: None Respiratory Surgical History: Reports: None GI Surgical History: Reports: None Female Surgical History: Reports: section, Hysterectomy Musculoskeletal Surgical History: Reports: Amputation, Other (see below) Other Musculoskeletal Surgeries/Procedures:: Bilateral BKA Social & Family History - Family History Family Medical History: Noncontributory - Tobacco Use Smoking Status *Q: Current Some Day Smoker Years of Tobacco use: 30 Packs/Tins Daily: 1 Used Tobacco, but Quit: Yes Month Tobacco Last Used: feb 2016 Second Hand Smoke Exposure: Yes - Caffeine Use Caffeine Use: Reports: Coffee - Alcohol Use Days Per Week of Alcohol Use: 0 - Recreational Drug Use Recreational Drug Use: Yes Drug Use in Last 12 Months: Yes Recreational Drug Type: Reports: Marijuana/Hashish Recreational Drug Use Frequency: Weekly - Living Situation & Occupation Living situation: Reports: single, with family Occupation: disabled H&P Review of Systems - Review of Systems: Review Of Systems: See Below General: Reports: malaise. Denies: fever, diaphoresis, decreased appetite HEENT: Reports: no symptoms Pulmonary: Reports: No Symptoms Cardiovascular: Reports: no symptoms Gastrointestinal: Reports: No symptoms Genitourinary: Reports: dysuria, frequency. Denies: vaginal discharge Musculoskeletal: Reports: no symptoms Skin: Reports: no symptoms Psychiatric: Reports: no symptoms Neurological: Reports: Dizziness. Denies: Seizure, Syncope, Trouble Speaking, Change in Speech Hematologic/Lymphatic: Reports: no symptoms, anemia. Denies: easy bleeding Immunologic: Reports: no symptoms Exam - Exam Exam: See Below - Vital Signs Vital Signs: Last Vital Signs Temp 37.1 C 10/14/16 09:25 Pulse 92 10/14/16 09:25 Resp 20 10/14/16 09:25 BP 109/70 10/14/16 09:25 Pulse Ox 98 10/14/16 09:25 Weight: 47.673 kg - Exam General: alert, oriented, cooperative. No: mild distress, moderate distress, severe distress, sedated, lethargic, obtunded HEENT: Conjunctiva clear, EACs clear, EOMI, Hearing intact, Mucosa moist & pink , Nares patent, Normal nasal septum, Posterior pharynx clear, Pupils equal, Pupils reactive, TMs clear, PERRLA Neck: supple, trachea midline Lungs: Clear to auscultation, Normal respiratory effort Cardiovascular: regular rate, regular rhythm Abdomen: normal bowel sounds, soft. No: organomegaly, peritoneal signs, distention, guarding, rigidity, rebound, tenderness, Rovsing's sign, Mead's sign (Female) Exam: Deferred Rectal (Female) Exam: Deferred Back Exam: normal inspection, full range of motion. No: CVA tenderness (L), CVA tenderness (R) Extremities: other (amputated lower extremity). No: cyanosis, edema Skin: warm, dry, intact Neurological: cranial nerves intact, reflexes equal bilateral, other (right upper extremity weakness compared to left. difficult to assess right lower extremity due to amputation) Neuro Extensive - Mental Status: alert, oriented x3, normal mood/affect, normal cognition Neuro Extensive - Motor, Sensory, Reflexes: CN II-XII intact Psychiatric: alert, normal affect, normal mood. No: suicidal ideation, homicidal ideation, hallucinations - Patient Data Lab Results last 24 hrs: Laboratory Results - last 24 hr 10/14/16 Range/Units 09:11 POC Glucose > 500 H* (70-105) mg/dl Result Diagrams: 10/14/16 06:13 10/14/16 10:08 *Q Meaningful Use (ADM) - VTE *Q VTE Criteria *Q: - Stroke *Q Stroke Criteria *Q: - AMI *Q AMI Criteria *Q: - Problem List (1) Substance abuse SNOMED Code(s): 98145926 ICD Code: F19.10 - OTHER PSYCHOACTIVE SUBSTANCE ABUSE, UNCOMPLICATED Status : Acute Current Visit: Yes (2) Anemia SNOMED Code(s): 466515395 ICD Code: D64.9 - ANEMIA, UNSPECIFIED Status: Acute Current Visit: Yes (3) History of peptic ulcer SNOMED Code(s): 713240620 ICD Code: Z87.11 - PERSONAL HISTORY OF PEPTIC ULCER DISEASE Status: Acute Current Visit: Yes (4) Hyponatremia syndrome SNOMED Code(s): 5251237 ICD Code: E87.1 - HYPO-OSMOLALITY AND HYPONATREMIA Status: Acute Current Visit: Yes (5) Weakness of right arm SNOMED Code(s): 920376010 ICD Code: R29.898 - OTH SYMPTOMS AND SIGNS INVOLVING THE MUSCULOSKELETAL SYSTEM Status: Acute Current Visit: Yes (6) Acute pyelonephritis SNOMED Code(s): 84304996 ICD Code: N10 - ACUTE PYELONEPHRITIS Status: Acute Current Visit: No (7) Acute renal failure syndrome SNOMED Code(s): 52536417 ICD Code: N17.9 - ACUTE KIDNEY FAILURE, UNSPECIFIED Status: Acute Current Visit: No Problem List Initiated/Reviewed/Updated: Yes Orders Last 24hrs: Active Orders 24 hr Category Date Time Status Patient Status [ADT] Routine ADT 10/14/16 09:24 Active Bedrest Bedside Commode [RC] ASDIRECTED Care 10/14/16 09:24 Active Blood Glucose Check, Bedside [RC] QIDACANDBED Care 10/14/16 10:00 Active Height and Weight [RC] DAILY Care 10/14/16 09:24 Active Intake and Output [RC] Q6H Care 10/14/16 09:26 Active Oxygen Therapy [RC] PRN Care 10/14/16 09:24 Active VTE/DVT Education [RC] PER UNIT ROUTINE Care 10/14/16 09:24 Active Vital Signs [RC] Q4H Care 10/14/16 09:24 Active Consult to Pharmacy [CONS] Routine Cons 10/14/16 09:57 Active OT Evaluation and Treatment [CONS] Routine Cons 10/14/16 09:31 Active PT Evaluation and Treatment [CONS] Routine Cons 10/14/16 09:31 Active Consistent Carbohydrate Diet [DIET] Diet 10/14/16 Breakfast Active BASIC METABOLIC PANEL,BMP [CHEM] Q6H Lab 10/14/16 10:08 Received BASIC METABOLIC PANEL,BMP [CHEM] Q6H Lab 10/14/16 15:31 Ordered BASIC METABOLIC PANEL,BMP [CHEM] Q6H Lab 10/14/16 21:31 Ordered BASIC METABOLIC PANEL,BMP [CHEM] Q6H Lab 10/15/16 03:31 Ordered CBC WITH AUTO DIFF [HEME] AM Lab 10/15/16 05:11 Ordered CULTURE URINE [RM] Routine Lab 10/14/16 09:42 Uncollected MAGNESIUM [CHEM] DAILY Lab 10/14/16 10:08 Received MAGNESIUM [CHEM] DAILY Lab 10/15/16 09:45 Ordered PHOSPHORUS [CHEM] DAILY Lab 10/14/16 10:08 Received PHOSPHORUS [CHEM] DAILY Lab 10/15/16 09:45 Ordered Acetaminophen [Tylenol] Med 10/14/16 09:31 Active 650 mg PO Q4H PRN Acetaminophen/HYDROcodone [[place] 325-10 MG] Med 10/14/16 09:31 Active 1 tab PO Q4H PRN Ferrous Sulfate Med 10/14/16 10:15 Active 325 mg PO DAILY@0800 Insulin Aspart [NovoLOG] Med 10/14/16 11:00 Active 0 unit SUBCUT QIDACANDBED Insulin Aspart [NovoLOG] Med 10/14/16 11:00 Active 15 unit SUBCUT ACBED Insulin Detemir [Levemir] Med 10/14/16 10:00 Active 25 unit SUBCUT BID Lisinopril [Prinivil] Med 10/14/16 10:00 Active 5 mg PO DAILY Multivitamins,Therapeutic [Thera] Med 10/14/16 10:00 Active 1 each PO DAILY@0800 Ondansetron [Zofran ODT] Med 10/14/16 09:52 Active 8 mg PO Q8H PRN Ondansetron [Zofran] Med 10/14/16 09:31 Active 4 mg IVPUSH Q6H PRN Pantoprazole [ProTONIX] Med 10/14/16 10:00 Active 40 mg PO ACBRK Polyethylene Glycol 3350 [MiraLAX] Med 10/14/16 09:31 Active 17 gm PO DAILY PRN Promethazine [Phenergan] Med 10/14/16 09:31 Active 6.25 mg IM Q6H PRN Sodium Chloride 0.9% [Normal Saline] 1,000 ml Med 10/14/16 09:45 Active IV ASDIRECTED Warfarin [Coumadin] Med 10/15/16 14:00 Active 5 mg PO DAILY@1400 Zolpidem [Ambien] Med 10/14/16 09:31 Active 5 mg PO BEDTIME PRN atorvaSTATin [Lipitor] Med 10/14/16 10:00 Active 40 mg PO DAILY buPROPion [Wellbutrin] Med 10/14/16 10:00 Ordered 100 mg PO BID cefTRIAXone [Rocephin] 1 gm Med 10/14/16 10:00 Active Sodium Chloride 0.9% [Normal Saline] 50 ml IV Q24H Resuscitation Status Routine Resus Stat 10/14/16 09:24 Ordered Medication Orders Acetaminophen (Tylenol) 650 mg PO Q4H PRN PRN Reason: Pain (Mild 1-3)/fever Hydrocodone Bitart/Acetaminophen ([place] 325-10 Mg) 1 tab PO Q4H PRN PRN Reason: Pain (moderate 4-6) Atorvastatin Calcium (Lipitor) 40 mg PO DAILY [facility] Ferrous Sulfate (Ferrous Sulfate) 325 mg PO DAILY@0800 [facility] Sodium Chloride (Normal Saline) 1,000 mls @ 150 mls/hr IV ONETIME ONE Stop: 10/14/16 14:30 Last Admin: 10/14/16 09:21 Dose: 150 mls/hr Sodium Chloride (Normal Saline) 1,000 mls @ 150 mls/hr IV ASDIRECTED [facility] Ceftriaxone Sodium 1 gm/ (Sodium Chloride) 50 mls @ 100 mls/hr IV Q24H [facility] Insulin Aspart (Novolog) 15 unit SUBCUT ACBED [facility] Insulin Aspart (Novolog) 0 unit SUBCUT QIDACANDBED [facility] PRN Reason: Protocol Insulin Detemir (Levemir) 25 unit SUBCUT BID [facility] Lisinopril (Prinivil) 5 mg PO DAILY [facility] Multivitamins (Thera) 1 each PO DAILY@0800 [facility] Non-Formulary Medication (Bupropion [Wellbutrin]) 100 mg PO BID [facility] Ondansetron HCl (Zofran) 4 mg IVPUSH Q6H PRN PRN Reason: Nausea/Vomiting Ondansetron HCl (Zofran Odt) 8 mg PO Q8H PRN PRN Reason: Nausea Pantoprazole Sodium (Protonix) 40 mg PO ACBRK [facility] Polyethylene Glycol (Miralax) 17 gm PO DAILY PRN PRN Reason: Constipation Promethazine HCl (Phenergan) 6.25 mg IM Q6H PRN PRN Reason: Nausea/Vomiting Warfarin Sodium (Coumadin) 5 mg PO DAILY@1400 [facility] Zolpidem Tartrate (Ambien) 5 mg PO BEDTIME PRN PRN Reason: Sleep Assessment/Plan Comment:: Right-sided weakness -CT of the head is unremarkable for acute findings. I spoke to Dr. Giron from neurology at [facility]. he recommended inpatient evaluation by neurologist according to her she has history of aneurysms status post clips which was 12- year-old. She states she is not supposed to take aspirin I spoke to hospitalist to transfer patient she is in Coumadin and INR is 4.0 Metabolic Acidosis Ph 7.23 most likely due to hyperglycemia Urinary tract infection, also the acute pyelonephritis I stopped doxycycline that she started 2 days ago. I started her on Rocephin awaiting the urine and blood cultures hyperglycemia IV fluids infusion NovoLog scheduled 15 units before meal Increased levemir from 20 bid to 25 units b.i.d. Sliding scale insulin hyponatremia Her calculated serum sodium is 132-136 Anemia Hemoglobin 7.7. Lower than her baseline I ordered Hemoccult Chronic anticoagulation I will hold Coumadin for today Patient is full code I spoke to Dr. Garcia, hospitalist at [facility] and he kindly accepted the patient. patient was transferred in stable condition. I discussed transferring with patient and she agreed.
[2016-10-14] MEDS ORDERED: Insulin Aspart 100 Units/ML 3 ML Pen SUBCUT SCH ×2 (11:00)
[2016-10-15] MEDS ORDERED: Warfarin 5 MG Tab PO SCH (14:00)
--- NOTE | 2016-10-22 09:52 | EKG ---
10/14/2016 - MAE DYKES L - EKG is sinus rhythm with a rate of 88. Normal NV interval. Normal axis. EKG is within normal limits. [facility] /[id number]
== END 2016-10-14 12:10 | DRG 638 ==
LOC: DL.ED 06:22 → UNDOADMIN 08:11 → DL.MS 08:11
PROVIDERS: ADMIT Family Medicine; ATTEND Family Medicine
DX: E13.10 Other specified diabetes mellitus with ketoacidosis without coma (principal); E22.2 Syndrome of inappropriate secretion of antidiuretic hormone; R53.1 Weakness; E11.65 Type 2 diabetes mellitus with hyperglycemia; E87.2 Acidosis; E87.1 Hypo-osmolality and hyponatremia; N10 Acute pyelonephritis; N17.9 Acute kidney failure, unspecified; R29.898 Other symptoms and signs involving the musculoskeletal system; D64.9 Anemia, unspecified; F19.10 Other psychoactive substance abuse, uncomplicated; Z87.11 Personal history of peptic ulcer disease; Z86.79 Personal history of other diseases of the circulatory system; Z79.01 Long term (current) use of anticoagulants
CPT/HCPCS: 36415; 36600; 70450; 80053; 80305; 81001; 82009; 82803; 82962; 84484; 85025; 85610; 87086; 93005; 99285; J7030; 80048; 83735; 84100; 87040; 87088; 87186; A9270-GY; J0696; J1815-GY; J7050

== ENCOUNTER 2016-11-04 22:04 | Emergency (ER) | payer MEDICAID, OTHER ==
[2016-11-04] MEDS ORDERED: Sodium Chloride 0.9% 1,000 ML IV SCH (22:45)
[2016-11-04 23:36] VITALS: BP 130/68
[2016-11-05] MEDS ORDERED: Insulin Regular, Human 100 Units/ML 10 ML Vial SUBCUT ONE ×2 (00:10→23:46)
[2016-11-05] MEDS ORDERED: Acetaminophen 325 MG Tab PO ONE (01:28)
[2016-11-05] MEDS ORDERED: GI Cocktail Oral Solution 30 ML PO ONE (01:36)
[2016-11-05 02:08] LABS: BASE EXCESS VENOUS -16.1 mmol/l ((-2)-(+3)); BICARBONATE,VENOUS 11 mmol/l (19-25); O2 DELIVERY DEVICE ROOM AIR; O2 SATURATION VENOUS 91.3 % (60-80); PCO2 VENOUS 28 mmHg (41-51); PO2 VENOUS 67 mmHg (35-42)
--- NOTE | 2016-11-05 02:49 | EDM.PDOC ---
ED HPI GENERAL MEDICAL PROBLEM - General Chief Complaint: General Stated Complaint: AMB Time Seen by Provider: 11/04/16 22:30 Source of Information: Reports: Patient History Limitations: Reports: No limitations - History of Present Illness INITIAL COMMENTS - FREE TEXT/NARRATIVE: c/o dizziness that started after supper stomach upset. Dizziness worse when moves head. BS elevated. normally running 300-400. treated for UTI 2 weeks ago , completed antibiotic, fever or chills. Onset: today Lower Abdomen Pain Score (Numeric/FACES): 5 - Related Data Allergies Allergy/AdvReac Type Severity Reaction Status Date / Time amoxicillin Allergy Cannot Verified 11/04/16 22:44 Remember cephalexin Allergy Cannot Verified 11/04/16 22:44 Remember ciprofloxacin Allergy Cannot Verified 11/04/16 22:44 Remember fentanyl Allergy Cannot Verified 11/04/16 22:44 Remember nitrofurantoin Allergy Cannot Verified 11/04/16 22:44 Remember NSAIDS (Non-Steroidal Allergy Bleeding Verified 11/04/16 22:44 Anti-Inflamma sumatriptan [From Imitrex] Allergy Hives Verified 11/04/16 22:44 sumatriptan succinate Allergy Hives Verified 11/04/16 22:44 [From Imitrex] tramadol AdvReac Bleeding Verified 11/04/16 22:44 Home Meds: Home Meds Insulin Detemir [Levemir Flexpen] 20 unit SQ BID 07/27/13 [History] Multivitamin [Multivitamins] 1 each PO DAILY #30 capsule 09/13/14 [Rx] Ferrous Sulfate [Iron] 325 mg PO DAILY #15 capsule.er 08/07/15 [Rx] Insulin Aspart [Novolog Flexpen] 15 unit SQ QID 12/20/15 [History] Ondansetron [Ondansetron ODT] 8 mg PO Q8H PRN 10/14/16 [History] Pantoprazole [ProTONIX] 40 mg PO DAILY 10/14/16 [History] Warfarin Sodium [Jantoven] 5 mg PO DAILY 10/14/16 [History] atorvaSTATin [Lipitor] 40 mg PO DAILY 10/14/16 [History] buPROPion HCl [Wellbutrin Sr] 150 mg PO BID 10/14/16 [History] Gabapentin [Neurontin] 100 mg PO TID 11/04/16 [History] Past Medical History HEENT History: Reports: Impaired vision Cardiovascular History: Reports: Blood clots/VTE/DVT, Hypertension Respiratory History: Reports: Asthma Gastrointestinal History: Reports: GERD, Hepatitis Genitourinary History: Reports: Diabetic nephropathy 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: , Other (see below) Other OB/BYN History: 4 c-sections Musculoskeletal History: Reports: Amputation Other Musculoskeletal History: bell amp Neurological History: Reports: Neuropathy, diabetic, Neuropathy, peripheral Psychiatric History: Reports: Addiction Endocrine/Metabolic History: Reports: Diabetes, type II, IDDM Hematologic History: Reports: Iron deficiency Immunologic History: Reports: None Oncologic (Cancer) History: Reports: None Dermatologic History: Reports: Cellulitis - Infectious Disease History Infectious Disease History: Reports: Hepatitis C - Past Surgical History Cardiovascular Surgical History: Reports: None Respiratory Surgical History: Reports: None GI Surgical History: Reports: None Female Surgical History: Reports: section, Hysterectomy Musculoskeletal Surgical History: Reports: Amputation, Other (see below) Other Musculoskeletal Surgeries/Procedures:: Bilateral BKA Social & Family History - Family History Family Medical History: Noncontributory - Tobacco Use Smoking Status *Q: Current Some Day Smoker Years of Tobacco use: 29 Packs/Tins Daily: 2 Used Tobacco, but Quit: Yes Month Tobacco Last Used: feb 2016 Second Hand Smoke Exposure: Yes - Caffeine Use Caffeine Use: Reports: Coffee - Alcohol Use Days Per Week of Alcohol Use: 0 - Recreational Drug Use Recreational Drug Use: Yes Drug Use in Last 12 Months: Yes Recreational Drug Type: Reports: Marijuana/Hashish Recreational Drug Use Frequency: Weekly - Living Situation & Occupation Living situation: Reports: single, with family Occupation: disabled ED ROS GENERAL - Review of Systems Review Of Systems: See Below Constitutional: Reports: no symptoms HEENT: Reports: Vertigo Respiratory: Reports: No Symptoms Cardiovascular: Reports: No symptoms Endocrine: Reports: high glucose GI/Abdominal: Reports: Diarrhea. Denies: Abdominal pain, Nausea : Reports: no symptoms Musculoskeletal: Reports: no symptoms Skin: Reports: no symptoms Neurological: Reports: Dizziness Hematologic/Lymphatic: Reports: other (chronic anticoagulation) ED EXAM, GENERAL - Physical Exam Exam: See Below Exam Limited By: No limitations General Appearance: alert, no apparent distress Eye Exam: bilateral eye: EOMI, PERRL Ears: normal external exam, normal TMs Nose: normal inspection Throat/Mouth: Normal inspection Head: atraumatic, normocephalic Neck: normal inspection, full range of motion Respiratory/Chest: no respiratory distress, lungs clear, normal breath sounds Cardiovascular: normal peripheral pulses, regular rate, rhythm GI/Abdominal: soft. No: normal bowel sounds (hyperactive), distended, guarding , tender Extremities: other (bilateral lower extremity amputations) Neurological: alert, oriented, normal cognition Psychiatric: normal affect, normal mood Skin Exam: Warm, Dry, Intact, Pallor Course - Vital Signs Last Recorded V/S: Last Vital Signs Temp 97.2 F 11/04/16 23:34 Pulse 88 11/04/16 23:34 Resp 18 11/04/16 23:34 BP 130/68 11/04/16 23:34 Pulse Ox 100 11/04/16 23:34 - Orders/Labs/Meds Orders: Active Orders 24 hr Category Date Time Status EKG 12 Lead [EKG Documentation Completion] [] URGENT Care 11/04/16 22:23 Active Glucose [Blood Glucose Check, Bedside] [] ONETIME Care 11/05/16 00:54 Active C DIFFICILE TOXIN BY PCR [MREF] Stat Lab 11/04/16 22:20 Received Sodium Chloride 0.9% [Normal Saline] 1,000 ml Med 11/04/16 22:45 Active IV ASDIRECTED Medication Orders Sodium Chloride (Normal Saline) 1,000 mls @ 200 mls/hr IV ASDIRECTED BRANDIE Last Admin: 11/04/16 22:59 Dose: 200 mls/hr Labs: Laboratory Tests 11/04/16 11/04/16 11/04/16 Range/Units 23:00 23:00 23:00 WBC 9.0 (5.0-10.0) 10^3/uL RBC 3.01 L (4.2-5.4) 10^6/uL Hgb 8.7 L (12.0-16.0) g/dL Hct 26.5 L (37.0-47.0) % MCV 88.0 (80-100) fL MCH 28.9 (27.0-34.0) pg MCHC 32.8 L (33.0-35.0) g/dL Plt Count 427 (150-450) 10^3/uL Neut % (Auto) 49.5 (42.2-75.2) % Lymph % (Auto) 35.0 (20.5-50.1) % [place] % (Auto) 12.8 H (2-8) % Eos % (Auto) 2.5 (1.0-3.0) % Baso % (Auto) 0.2 (0.0-1.0) % PT 28.2 H (9.0-12.0) SEC INR 2.8 H (0.9-1.2) D-Dimer, Quantitative (0-400) ng/mL VBG pH (7.31-7.41) VBG pCO2 (41-51) mmHg VBG pO2 (35-42) mmHg VBG HCO3 (19-25) mmol/l VBG O2 Saturation (60-80) % VBG Base Excess ((-2)-(+3)) mmol/l O2 Delivery Device Sodium 130 L (135-145) mmol/L Potassium 3.9 (3.6-5.0) mmol/L Chloride 111 (101-111) mmol/L Carbon Dioxide 13.0 L (21.0-31.0) mmol/L Anion Gap 9.9 BUN 25 H (7-18) mg/dL Creatinine 1.4 H (0.6-1.3) mg/dL Est Cr Clr Drug Dosing 38.95 mL/min Estimated GFR (MDRD) 40 BUN/Creatinine Ratio 17.85 Glucose 376 H (74-105) mg/dL POC Glucose (70-105) mg/dl Lactic Acid (0.5-2.2) mmol/L Calcium 7.1 L (8.4-10.2) mg/dl Total Bilirubin 0.2 (0.2-1.0) mg/dL AST 17 (10-42) IU/L ALT 22 (10-60) IU/L Alkaline Phosphatase 79 (42-121) IU/L Total Protein 5.6 L (6.7-8.2) g/dl Albumin 1.6 L (3.2-5.5) g/dl Globulin 4.0 Albumin/Globulin Ratio 0.40 Amylase (28-100) U/L Lipase (22-51) U/L Urine Color (YELLOW) Urine Appearance (CLEAR) Urine pH (5.0-9.0) Ur Specific [place] (1.005-1.030) Urine Protein (NEGATIVE) Urine Glucose (UA) (NEGATIVE) Urine Ketones (NEGATIVE) Urine Occult Blood (NEGATIVE) Urine Nitrite (NEGATIVE) Urine Bilirubin (NEGATIVE) Urine Urobilinogen (0.2-1.0) mg/dL Ur Leukocyte Esterase (NEGATIVE) Urine RBC /HPF Urine WBC (0-5/HPF) /HPF Ur Epithelial Cells /HPF Urine Bacteria (0-FEW/HPF) /HPF Urine Other Urine Yeast (0/HPF) /HPF Urine Opiates Screen (NEGATIVE) Ur Oxycodone Screen (NEGATIVE) Urine Methadone Screen (NEGATIVE) Ur Barbiturates Screen (NEGATIVE) U Tricyclic Antidepress (NEGATIVE) Ur Phencyclidine Scrn (NEGATIVE) Ur Amphetamine Screen (NEGATIVE) U Methamphetamines Scrn (NEGATIVE) Urine MDMA Screen (NEGATIVE) U Benzodiazepines Scrn (NEGATIVE) Urine Cocaine Screen (NEGATIVE) U Marijuana (THC) Screen (NEGATIVE) 11/04/16 11/04/16 11/04/16 Range/Units 23:00 23:00 23:00 WBC (5.0-10.0) 10^3/uL RBC (4.2-5.4) 10^6/uL Hgb (12.0-16.0) g/dL Hct (37.0-47.0) % MCV (80-100) fL MCH (27.0-34.0) pg MCHC (33.0-35.0) g/dL Plt Count (150-450) 10^3/uL Neut % (Auto) (42.2-75.2) % Lymph % (Auto) (20.5-50.1) % [place] % (Auto) (2-8) % Eos % (Auto) (1.0-3.0) % Baso % (Auto) (0.0-1.0) % PT (9.0-12.0) SEC INR (0.9-1.2) D-Dimer, Quantitative 252 (0-400) ng/mL VBG pH (7.31-7.41) VBG pCO2 (41-51) mmHg VBG pO2 (35-42) mmHg VBG HCO3 (19-25) mmol/l VBG O2 Saturation (60-80) % VBG Base Excess ((-2)-(+3)) mmol/l O2 Delivery Device Sodium (135-145) mmol/L Potassium (3.6-5.0) mmol/L Chloride (101-111) mmol/L Carbon Dioxide (21.0-31.0) mmol/L Anion Gap BUN (7-18) mg/dL Creatinine (0.6-1.3) mg/dL Est Cr Clr Drug Dosing mL/min Estimated GFR (MDRD) BUN/Creatinine Ratio Glucose (74-105) mg/dL POC Glucose (70-105) mg/dl Lactic Acid 1.1 (0.5-2.2) mmol/L Calcium (8.4-10.2) mg/dl Total Bilirubin (0.2-1.0) mg/dL AST (10-42) IU/L ALT (10-60) IU/L Alkaline Phosphatase (42-121) IU/L Total Protein (6.7-8.2) g/dl Albumin (3.2-5.5) g/dl Globulin Albumin/Globulin Ratio Amylase 59 (28-100) U/L Lipase 93 H (22-51) U/L Urine Color (YELLOW) Urine Appearance (CLEAR) Urine pH (5.0-9.0) Ur Specific [place] (1.005-1.030) Urine Protein (NEGATIVE) Urine Glucose (UA) (NEGATIVE) Urine Ketones (NEGATIVE) Urine Occult Blood (NEGATIVE) Urine Nitrite (NEGATIVE) Urine Bilirubin (NEGATIVE) Urine Urobilinogen (0.2-1.0) mg/dL Ur Leukocyte Esterase (NEGATIVE) Urine RBC /HPF Urine WBC (0-5/HPF) /HPF Ur Epithelial Cells /HPF Urine Bacteria (0-FEW/HPF) /HPF Urine Other Urine Yeast (0/HPF) /HPF Urine Opiates Screen (NEGATIVE) Ur Oxycodone Screen (NEGATIVE) Urine Methadone Screen (NEGATIVE) Ur Barbiturates Screen (NEGATIVE) U Tricyclic Antidepress (NEGATIVE) Ur Phencyclidine Scrn (NEGATIVE) Ur Amphetamine Screen (NEGATIVE) U Methamphetamines Scrn (NEGATIVE) Urine MDMA Screen (NEGATIVE) U Benzodiazepines Scrn (NEGATIVE) Urine Cocaine Screen (NEGATIVE) U Marijuana (THC) Screen (NEGATIVE) 11/04/16 11/04/16 11/05/16 Range/Units 23:14 23:14 01:43 WBC (5.0-10.0) 10^3/uL RBC (4.2-5.4) 10^6/uL Hgb (12.0-16.0) g/dL Hct (37.0-47.0) % MCV (80-100) fL MCH (27.0-34.0) pg MCHC (33.0-35.0) g/dL Plt Count (150-450) 10^3/uL Neut % (Auto) (42.2-75.2) % Lymph % (Auto) (20.5-50.1) % [place] % (Auto) (2-8) % Eos % (Auto) (1.0-3.0) % Baso % (Auto) (0.0-1.0) % PT (9.0-12.0) SEC INR (0.9-1.2) D-Dimer, Quantitative (0-400) ng/mL VBG pH (7.31-7.41) VBG pCO2 (41-51) mmHg VBG pO2 (35-42) mmHg VBG HCO3 (19-25) mmol/l VBG O2 Saturation (60-80) % VBG Base Excess ((-2)-(+3)) mmol/l O2 Delivery Device Sodium (135-145) mmol/L Potassium (3.6-5.0) mmol/L Chloride (101-111) mmol/L Carbon Dioxide (21.0-31.0) mmol/L Anion Gap BUN (7-18) mg/dL Creatinine (0.6-1.3) mg/dL Est Cr Clr Drug Dosing mL/min Estimated GFR (MDRD) BUN/Creatinine Ratio Glucose (74-105) mg/dL POC Glucose 290 H (70-105) mg/dl Lactic Acid (0.5-2.2) mmol/L Calcium (8.4-10.2) mg/dl Total Bilirubin (0.2-1.0) mg/dL AST (10-42) IU/L ALT (10-60) IU/L Alkaline Phosphatase (42-121) IU/L Total Protein (6.7-8.2) g/dl Albumin (3.2-5.5) g/dl Globulin Albumin/Globulin Ratio Amylase (28-100) U/L Lipase (22-51) U/L Urine Color Yellow (YELLOW) Urine Appearance Cloudy (CLEAR) Urine pH 5.0 (5.0-9.0) Ur Specific [place] 1.025 (1.005-1.030) Urine Protein >=300 H (NEGATIVE) Urine Glucose (UA) 100 H (NEGATIVE) Urine Ketones Negative (NEGATIVE) Urine Occult Blood Large H (NEGATIVE) Urine Nitrite Negative (NEGATIVE) Urine Bilirubin Negative (NEGATIVE) Urine Urobilinogen 0.2 (0.2-1.0) mg/dL Ur Leukocyte Esterase Small H (NEGATIVE) Urine RBC >100 H /HPF Urine WBC Semi-packed H (0-5/HPF) /HPF Ur Epithelial Cells Few /HPF Urine Bacteria Many H (0-FEW/HPF) /HPF Urine Other Urine Yeast Moderate H (0/HPF) /HPF Urine Opiates Screen Negative (NEGATIVE) Ur Oxycodone Screen Negative (NEGATIVE) Urine Methadone Screen Negative (NEGATIVE) Ur Barbiturates Screen Negative (NEGATIVE) U Tricyclic Antidepress Negative (NEGATIVE) Ur Phencyclidine Scrn Negative (NEGATIVE) Ur Amphetamine Screen Positive H (NEGATIVE) U Methamphetamines Scrn Positive H (NEGATIVE) Urine MDMA Screen Negative (NEGATIVE) U Benzodiazepines Scrn Negative (NEGATIVE) Urine Cocaine Screen Negative (NEGATIVE) U Marijuana (THC) Screen Positive H (NEGATIVE) 11/05/16 Range/Units 02:00 WBC (5.0-10.0) 10^3/uL RBC (4.2-5.4) 10^6/uL Hgb (12.0-16.0) g/dL Hct (37.0-47.0) % MCV (80-100) fL MCH (27.0-34.0) pg MCHC (33.0-35.0) g/dL Plt Count (150-450) 10^3/uL Neut % (Auto) (42.2-75.2) % Lymph % (Auto) (20.5-50.1) % [place] % (Auto) (2-8) % Eos % (Auto) (1.0-3.0) % Baso % (Auto) (0.0-1.0) % PT (9.0-12.0) SEC INR (0.9-1.2) D-Dimer, Quantitative (0-400) ng/mL VBG pH 7.20 L* (7.31-7.41) VBG pCO2 28 L (41-51) mmHg VBG pO2 67 H (35-42) mmHg VBG HCO3 11 L (19-25) mmol/l VBG O2 Saturation 91.3 H (60-80) % VBG Base Excess -16.1 L ((-2)-(+3)) mmol/l O2 Delivery Device Room air Sodium (135-145) mmol/L Potassium (3.6-5.0) mmol/L Chloride (101-111) mmol/L Carbon Dioxide (21.0-31.0) mmol/L Anion Gap BUN (7-18) mg/dL Creatinine (0.6-1.3) mg/dL Est Cr Clr Drug Dosing mL/min Estimated GFR (MDRD) BUN/Creatinine Ratio Glucose (74-105) mg/dL POC Glucose (70-105) mg/dl Lactic Acid (0.5-2.2) mmol/L Calcium (8.4-10.2) mg/dl Total Bilirubin (0.2-1.0) mg/dL AST (10-42) IU/L ALT (10-60) IU/L Alkaline Phosphatase (42-121) IU/L Total Protein (6.7-8.2) g/dl Albumin (3.2-5.5) g/dl Globulin Albumin/Globulin Ratio Amylase (28-100) U/L Lipase (22-51) U/L Urine Color (YELLOW) Urine Appearance (CLEAR) Urine pH (5.0-9.0) Ur Specific [place] (1.005-1.030) Urine Protein (NEGATIVE) Urine Glucose (UA) (NEGATIVE) Urine Ketones (NEGATIVE) Urine Occult Blood (NEGATIVE) Urine Nitrite (NEGATIVE) Urine Bilirubin (NEGATIVE) Urine Urobilinogen (0.2-1.0) mg/dL Ur Leukocyte Esterase (NEGATIVE) Urine RBC /HPF Urine WBC (0-5/HPF) /HPF Ur Epithelial Cells /HPF Urine Bacteria (0-FEW/HPF) /HPF Urine Other Urine Yeast (0/HPF) /HPF Urine Opiates Screen (NEGATIVE) Ur Oxycodone Screen (NEGATIVE) Urine Methadone Screen (NEGATIVE) Ur Barbiturates Screen (NEGATIVE) U Tricyclic Antidepress (NEGATIVE) Ur Phencyclidine Scrn (NEGATIVE) Ur Amphetamine Screen (NEGATIVE) U Methamphetamines Scrn (NEGATIVE) Urine MDMA Screen (NEGATIVE) U Benzodiazepines Scrn (NEGATIVE) Urine Cocaine Screen (NEGATIVE) U Marijuana (THC) Screen (NEGATIVE) Meds: Medications Generic Name Dose Route Start Last Admin Trade Name Gloria PRN Reason Stop Dose Admin Sodium Chloride 1,000 mls @ 200 mls/hr 11/04/16 22:45 11/04/16 22:59 Normal Saline IV 200 mls/hr ASDIRECTED BRANDIE Administration Discontinued Medications Generic Name Dose Route Start Last Admin Trade Name Gloria PRN Reason Stop Dose Admin Acetaminophen 650 mg 11/05/16 01:28 11/05/16 01:36 Tylenol PO 11/05/16 01:29 650 mg NOW ONE Administration Hydrocodone Bitart/Acetaminophen 1 tab 11/05/16 02:54 11/05/16 03:00 [place] 325-10 Mg PO 11/05/16 02:55 1 tab ONETIME ONE Administration Al Hydroxide/Mg Hydroxide 30 ml 11/05/16 01:36 11/05/16 01:39 Gi Cocktail PO 11/05/16 01:37 30 ml ONETIME ONE Administration Insulin Human Regular 3 unit 11/05/16 23:46 Novolin R SUBCUT 11/05/16 23:47 ONETIME ONE Protocol Insulin Human Regular 3 unit 11/05/16 00:10 11/05/16 00:30 Novolin R SUBCUT 11/05/16 00:11 3 units ONETIME ONE Administration Protocol - Re-Assessments/Exams Free Text/Narrative Re-Assessment/Exam: 11/05/16 05:26 Large liquid boogie stool on arrival to ED, partially digested food particles. Patient's general appearance slight pallor but much improved from usual ER presentation. Alert answers questions appropriately . Generalized headache unrelieved with tylenol. Hydrocodone given with relief. Ct results negative. Lab studies consistent with patient's overall chronic health state. Chloride low but patient has had consistent down crum trend over last 18 months. Chronic anemia. Denied drug use with exception of cannabis. UDS positive for meth- is possible that false negative from Wellbutrin however patient has hx of meth use and question of track bullard on hands. Patient resting and no further complaints following hydrocodone. Sitting up in bed drinking coffee. Moves self to turn or reposition without difficulty. Multiple attempts to family members for ride home . Departure - Departure Time of Disposition: 02:45 Disposition: Home, Self-Care 01 Condition: fair Clinical Impression: Gastroenteritis, Hyperglycemia, Methamphetamine abuse Instructions: Rehydration, Adult Forms: ED Department Discharge Additional Instructions: increase fluid intake light bland diet monitor blood sugars, follow up with primary care provider 1-2 days - My Orders Last 24 Hours: My Active Orders 11/04/16 22:20 C DIFFICILE TOXIN BY PCR [MREF] Stat 11/04/16 22:23 EKG 12 Lead [EKG Documentation Completion] [RC] URGENT 11/04/16 22:45 Sodium Chloride 0.9% [Normal Saline] 1,000 ml IV ASDIRECTED 11/05/16 00:54 Glucose [Blood Glucose Check, Bedside] [RC] ONETIME - Assessment/Plan Last 24 Hours: My Active Orders 11/04/16 22:20 C DIFFICILE TOXIN BY PCR [MREF] Stat 11/04/16 22:23 EKG 12 Lead [EKG Documentation Completion] [RC] URGENT 11/04/16 22:45 Sodium Chloride 0.9% [Normal Saline] 1,000 ml IV ASDIRECTED 11/05/16 00:54 Glucose [Blood Glucose Check, Bedside] [RC] ONETIME
[2016-11-05] MEDS ORDERED: Acetaminophen/HYDROcodone 325-10 MG Tab PO ONE (02:54)
--- NOTE | 2016-11-05 14:15 | EKG ---
11/04/2016 - MAE DYKES - Twelve-lead EKG shows normal sinus rhythm with heart rate of 79. No significant ST elevation or ST depression noted on this 12-lead EKG. Nonspecific ST-T changes noted on lead V2, V3, and V4. [facility] /[id number]
== END 2016-11-05 08:30 | disposition home or self-care (01) ==
LOC: EEVIPCON 22:04 → DL.ED 22:04
DX: K52.9 Noninfective gastroenteritis and colitis, unspecified (principal); E11.40 Type 2 diabetes mellitus with diabetic neuropathy, unspecified; E11.65 Type 2 diabetes mellitus with hyperglycemia; F15.10 Other stimulant abuse, uncomplicated; I10 Essential (primary) hypertension; J45.909 Unspecified asthma, uncomplicated; K21.9 Gastro-esophageal reflux disease without esophagitis; D50.9 Iron deficiency anemia, unspecified; F17.200 Nicotine dependence, unspecified, uncomplicated; Z79.01 Long term (current) use of anticoagulants; Z88.8 Allergy status to other drugs, medicaments and biological substances; Z79.4 Long term (current) use of insulin; Z79.899 Other long term (current) drug therapy; Z86.718 Personal history of other venous thrombosis and embolism; Z86.19 Personal history of other infectious and parasitic diseases
CPT/HCPCS: 36415; 70450; 80053; 80305; 81001; 82150; 82272; 82803; 82962; 83605; 83690; 85025; 85379; 85610; 87493; 93005; 96365; 96366; 96372; 99284; A9270; J7030; J1815-GY

== ENCOUNTER 2016-12-20 16:48 | Emergency (ER) | payer MEDICAID, OTHER ==
--- NOTE | 2016-12-20 16:48 | EDM.PDOC ---
<Luca Tyler - Last Filed: 12/20/16 18:53> ED HPI GENERAL MEDICAL PROBLEM - General Chief Complaint: General Stated Complaint: SP YEE AMBU Time Seen by Provider: 12/20/16 16:42 Source of Information: Reports: Patient, EMS Notes Reviewed, RN Notes Reviewed History Limitations: Reports: No Limitations Right Abdomen Pain Score (Numeric/FACES): 5 - Related Data Allergies Allergy/AdvReac Type Severity Reaction Status Date / Time amoxicillin Allergy Cannot Verified 11/04/16 22:44 Remember cephalexin Allergy Cannot Verified 11/04/16 22:44 Remember ciprofloxacin Allergy Cannot Verified 11/04/16 22:44 Remember fentanyl Allergy Cannot Verified 11/04/16 22:44 Remember nitrofurantoin Allergy Cannot Verified 11/04/16 22:44 Remember NSAIDS (Non-Steroidal Allergy Bleeding Verified 11/04/16 22:44 Anti-Inflamma sumatriptan [From Imitrex] Allergy Hives Verified 11/04/16 22:44 sumatriptan succinate Allergy Hives Verified 11/04/16 22:44 [From Imitrex] tramadol AdvReac Bleeding Verified 11/04/16 22:44 Home Meds: Home Meds Insulin Detemir [Levemir Flexpen] 20 unit SQ BID 07/27/13 [History] Multivitamin [Multivitamins] 1 each PO DAILY #30 capsule 09/13/14 [Rx] Ferrous Sulfate [Iron] 325 mg PO DAILY #15 capsule.er 08/07/15 [Rx] Insulin Aspart [Novolog Flexpen] 15 unit SQ QID 12/20/15 [History] Ondansetron [Ondansetron ODT] 8 mg PO Q8H PRN 10/14/16 [History] Pantoprazole [ProTONIX] 40 mg PO DAILY 10/14/16 [History] Warfarin Sodium [Jantoven] 5 mg PO DAILY 10/14/16 [History] atorvaSTATin [Lipitor] 40 mg PO DAILY 10/14/16 [History] buPROPion HCl [Wellbutrin Sr] 150 mg PO BID 10/14/16 [History] Gabapentin [Neurontin] 100 mg PO TID 11/04/16 [History] Past Medical History HEENT History: Reports: Impaired Vision Cardiovascular History: Reports: Blood Clots/VTE/DVT, Hypertension Respiratory History: Reports: Asthma Gastrointestinal History: Reports: GERD, Hepatitis Genitourinary History: Reports: Diabetic Nephropathy 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: , 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) Other OB/BYN History: 4 c-sections Musculoskeletal History: Reports: Amputation Other Musculoskeletal History: bell amp Neurological History: Reports: Neuropathy, Diabetic, Neuropathy, Peripheral Psychiatric History: Reports: Addiction Endocrine/Metabolic History: Reports: Diabetes, Type II, IDDM Hematologic History: Reports: Iron Deficiency Immunologic History: Reports: None Oncologic (Cancer) History: Reports: None Dermatologic History: Reports: Cellulitis - Infectious Disease History Infectious Disease History: Reports: Hepatitis C - Past Surgical History Female Surgical History: Reports: Section, Hysterectomy Neurological Surgical History: Reports: 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) Musculoskeletal Surgical History: Reports: Amputation, 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) Social & Family History - Family History Family Medical History: Noncontributory - Tobacco Use Smoking Status *Q: Current Some Day Smoker Years of Tobacco use: 29 Packs/Tins Daily: 2 Used Tobacco, but Quit: Yes Month Tobacco Last Used: feb 2016 Second Hand Smoke Exposure: Yes - Caffeine Use Caffeine Use: Reports: Coffee - Alcohol Use Days Per Week of Alcohol Use: 0 - Recreational Drug Use Recreational Drug Use: Yes Drug Use in Last 12 Months: Yes Recreational Drug Type: Reports: Marijuana/Hashish Recreational Drug Use Frequency: Weekly - Living Situation & Occupation Living situation: Reports: Single, with Family Occupation: Disabled Course - Vital Signs Last Recorded V/S: Last Vital Signs Temp 36.2 C 12/20/16 17:50 Pulse 70 12/20/16 17:50 Resp 16 12/20/16 17:50 BP 112/77 12/20/16 17:50 Pulse Ox 98 12/20/16 17:50 - Orders/Labs/Meds Orders: Active Orders 24 hr Category Date Time Status Blood Glucose Check, Bedside [RC] ONETIME Care 12/20/16 17:57 Active Peripheral IV Care [RC] . DIRECTED Care 12/20/16 16:51 Active Abdomen Pelvis wo Cont [CT] Urgent Exams 12/20/16 19:40 Taken CULTURE BLOOD [BC] Stat Lab 12/20/16 17:18 Results CULTURE BLOOD [BC] Stat Lab 12/20/16 17:21 Results UA W/MICROSCOPIC [URIN] Stat Lab 12/20/16 21:11 Received Sodium Chloride 0.9% [Saline Flush] Med 12/20/16 16:51 Active 10 ml FLUSH ASDIRECTED PRN Blood Culture x2 Reflex Set [OM.PC] Stat Oth 12/20/16 16:51 Ordered Peripheral IV Insertion Adult [OM.PC] Stat Ot 12/20/16 16:48 Ordered Medication Orders Sodium Chloride (Saline Flush) 10 ml FLUSH ASDIRECTED PRN PRN Reason: Keep Vein Open Labs: Laboratory Tests 12/20/16 12/20/16 12/20/16 Range/Units 17:21 17:21 17:21 WBC 11.9 H (5.0-10.0) 10^3/uL RBC 3.11 L (4.2-5.4) 10^6/uL Hgb 8.7 L (12.0-16.0) g/dL Hct 27.2 L (37.0-47.0) % MCV 87.5 (80-100) fL MCH 28.0 (27.0-34.0) pg MCHC 32.0 L (33.0-35.0) g/dL Plt Count 629 H (150-450) 10^3/uL Neut % (Auto) 72.9 (42.2-75.2) % Lymph % (Auto) 18.9 L (20.5-50.1) % [place] % (Auto) 6.5 (2-8) % Eos % (Auto) 1.4 (1.0-3.0) % Baso % (Auto) 0.3 (0.0-1.0) % Add Manual Diff Yes Neutrophils % (Manual) 65 % Band Neutrophils % 3 % Lymphocytes % (Manual) 23 % Monocytes % (Manual) 8 % Eosinophils % (Manual) 1 % ABG pH (7.35-7.45) ABG pCO2 (35-45) mmHg ABG pO2 (70-100) mmHg ABG HCO3 (22-26) mmol/L ABG O2 Saturation (95-100) % ABG Base Excess ((-2)-(+3)) mmol/L Yann Test O2 Delivery Device Sodium 129 L (135-145) mmol/L Potassium 3.1 L (3.6-5.0) mmol/L Chloride 103 (101-111) mmol/L Carbon Dioxide 17.0 L (21.0-31.0) mmol/L Anion Gap 12.1 BUN 12 (7-18) mg/dL Creatinine 1.6 H (0.6-1.3) mg/dL Est Cr Clr Drug Dosing 34.08 mL/min Estimated GFR (MDRD) 35 BUN/Creatinine Ratio 7.50 Glucose 360 H (74-105) mg/dL POC Glucose (70-105) mg/dl Lactic Acid 3.6 H (0.5-2.2) mmol/L Calcium 7.6 L (8.4-10.2) mg/dl Total Bilirubin 0.1 L (0.2-1.0) mg/dL AST 15 (10-42) IU/L ALT 10 (10-60) IU/L Alkaline Phosphatase 90 (42-121) IU/L B-Natriuretic Peptide 48 (0-100) pg/ml Total Protein 6.3 L (6.7-8.2) g/dl Albumin 1.8 L (3.2-5.5) g/dl Globulin 4.5 Albumin/Globulin Ratio 0.40 Amylase 22 L (28-100) U/L Lipase 22 (22-51) U/L Urine Opiates Screen (NEGATIVE) Ur Oxycodone Screen (NEGATIVE) Urine Methadone Screen (NEGATIVE) Ur Barbiturates Screen (NEGATIVE) U Tricyclic Antidepress (NEGATIVE) Ur Phencyclidine Scrn (NEGATIVE) Ur Amphetamine Screen (NEGATIVE) U Methamphetamines Scrn (NEGATIVE) Urine MDMA Screen (NEGATIVE) U Benzodiazepines Scrn (NEGATIVE) Urine Cocaine Screen (NEGATIVE) U Marijuana (THC) Screen (NEGATIVE) Ethyl Alcohol < 5 mg/dL Ketones Negative 12/20/16 12/20/16 12/20/16 Range/Units 17:24 18:02 21:09 WBC (5.0-10.0) 10^3/uL RBC (4.2-5.4) 10^6/uL Hgb (12.0-16.0) g/dL Hct (37.0-47.0) % MCV (80-100) fL MCH (27.0-34.0) pg MCHC (33.0-35.0) g/dL Plt Count (150-450) 10^3/uL Neut % (Auto) (42.2-75.2) % Lymph % (Auto) (20.5-50.1) % [place] % (Auto) (2-8) % Eos % (Auto) (1.0-3.0) % Baso % (Auto) (0.0-1.0) % Add Manual Diff Neutrophils % (Manual) % Band Neutrophils % % Lymphocytes % (Manual) % Monocytes % (Manual) % Eosinophils % (Manual) % ABG pH 7.33 L (7.35-7.45) ABG pCO2 29 L (35-45) mmHg ABG pO2 102 H (70-100) mmHg ABG HCO3 15.0 L (22-26) mmol/L ABG O2 Saturation 98 (95-100) % ABG Base Excess -10 L ((-2)-(+3)) mmol/L Yann Test N/a O2 Delivery Device Room air Sodium (135-145) mmol/L Potassium (3.6-5.0) mmol/L Chloride (101-111) mmol/L Carbon Dioxide (21.0-31.0) mmol/L Anion Gap BUN (7-18) mg/dL Creatinine (0.6-1.3) mg/dL Est Cr Clr Drug Dosing mL/min Estimated GFR (MDRD) BUN/Creatinine Ratio Glucose (74-105) mg/dL POC Glucose 353 H 219 H (70-105) mg/dl Lactic Acid (0.5-2.2) mmol/L Calcium (8.4-10.2) mg/dl Total Bilirubin (0.2-1.0) mg/dL AST (10-42) IU/L ALT (10-60) IU/L Alkaline Phosphatase (42-121) IU/L B-Natriuretic Peptide (0-100) pg/ml Total Protein (6.7-8.2) g/dl Albumin (3.2-5.5) g/dl Globulin Albumin/Globulin Ratio Amylase (28-100) U/L Lipase (22-51) U/L Urine Opiates Screen (NEGATIVE) Ur Oxycodone Screen (NEGATIVE) Urine Methadone Screen (NEGATIVE) Ur Barbiturates Screen (NEGATIVE) U Tricyclic Antidepress (NEGATIVE) Ur Phencyclidine Scrn (NEGATIVE) Ur Amphetamine Screen (NEGATIVE) U Methamphetamines Scrn (NEGATIVE) Urine MDMA Screen (NEGATIVE) U Benzodiazepines Scrn (NEGATIVE) Urine Cocaine Screen (NEGATIVE) U Marijuana (THC) Screen (NEGATIVE) Ethyl Alcohol mg/dL Ketones 12/20/16 Range/Units 21:11 WBC (5.0-10.0) 10^3/uL RBC (4.2-5.4) 10^6/uL Hgb (12.0-16.0) g/dL Hct (37.0-47.0) % MCV (80-100) fL MCH (27.0-34.0) pg MCHC (33.0-35.0) g/dL Plt Count (150-450) 10^3/uL Neut % (Auto) (42.2-75.2) % Lymph % (Auto) (20.5-50.1) % [place] % (Auto) (2-8) % Eos % (Auto) (1.0-3.0) % Baso % (Auto) (0.0-1.0) % Add Manual Diff Neutrophils % (Manual) % Band Neutrophils % % Lymphocytes % (Manual) % Monocytes % (Manual) % Eosinophils % (Manual) % ABG pH (7.35-7.45) ABG pCO2 (35-45) mmHg ABG pO2 (70-100) mmHg ABG HCO3 (22-26) mmol/L ABG O2 Saturation (95-100) % ABG Base Excess ((-2)-(+3)) mmol/L Yann Test O2 Delivery Device Sodium (135-145) mmol/L Potassium (3.6-5.0) mmol/L Chloride (101-111) mmol/L Carbon Dioxide (21.0-31.0) mmol/L Anion Gap BUN (7-18) mg/dL Creatinine (0.6-1.3) mg/dL Est Cr Clr Drug Dosing mL/min Estimated GFR (MDRD) BUN/Creatinine Ratio Glucose (74-105) mg/dL POC Glucose (70-105) mg/dl Lactic Acid (0.5-2.2) mmol/L Calcium (8.4-10.2) mg/dl Total Bilirubin (0.2-1.0) mg/dL AST (10-42) IU/L ALT (10-60) IU/L Alkaline Phosphatase (42-121) IU/L B-Natriuretic Peptide (0-100) pg/ml Total Protein (6.7-8.2) g/dl Albumin (3.2-5.5) g/dl Globulin Albumin/Globulin Ratio Amylase (28-100) U/L Lipase (22-51) U/L Urine Opiates Screen Negative (NEGATIVE) Ur Oxycodone Screen Negative (NEGATIVE) Urine Methadone Screen Negative (NEGATIVE) Ur Barbiturates Screen Negative (NEGATIVE) U Tricyclic Antidepress Negative (NEGATIVE) Ur Phencyclidine Scrn Negative (NEGATIVE) Ur Amphetamine Screen Positive H (NEGATIVE) U Methamphetamines Scrn Positive H (NEGATIVE) Urine MDMA Screen Negative (NEGATIVE) U Benzodiazepines Scrn Negative (NEGATIVE) Urine Cocaine Screen Negative (NEGATIVE) U Marijuana (THC) Screen Positive H (NEGATIVE) Ethyl Alcohol mg/dL Ketones Meds: Medications Generic Name Dose Route Start Last Admin Trade Name Freq PRN Reason Stop Dose Admin Sodium Chloride 10 ml 12/20/16 16:51 Saline Flush FLUSH ASDIRECTED PRN Keep Vein Open Discontinued Medications Generic Name Dose Route Start Last Admin Trade Name Freq PRN Reason Stop Dose Admin Sodium Chloride 1,000 mls @ 999 mls/hr 12/20/16 16:52 Normal Saline IV 12/20/16 17:52 .BOLUS ONE Ondansetron HCl 4 mg 12/20/16 16:52 12/20/16 19:25 Zofran IV 12/20/16 16:53 Not Given ONETIME ONE Ondansetron HCl 4 mg 12/20/16 19:24 12/20/16 19:29 Zofran Odt PO 12/20/16 19:25 4 mg ONETIME ONE Administration Departure - Departure Disposition: DC/Tfer to [facility] 02 Clinical Impression: Pyelonephritis - Discharge Information Forms: Interfacility Transfer EMTALA Care Plan Goals: Discussed the patient's history, examination, lab and CT results with Dr. Plasencia (Hospitalist with [facility] in [place]). Dr. Plasencia accepted the patient for continued evaluation and further management. The patient will be transported by [facility]. - My Orders Last 24 Hours: My Active Orders 12/20/16 19:40 Abdomen Pelvis wo Cont [CT] Urgent - Assessment/Plan Last 24 Hours: My Active Orders 12/20/16 19:40 Abdomen Pelvis wo Cont [CT] Urgent <Prudencio Dennis - Last Filed: 12/20/16 21:34> ED HPI GENERAL MEDICAL PROBLEM - History of Present Illness INITIAL COMMENTS - FREE TEXT/NARRATIVE: This 46 yo female patient reports to the ED with abdominal pain. The patient admits to doing meth 2-3 days ago. The patient also reports an infection in her leg which was revised 2 days ago. The patient has a follow-up on 12/24/16 for her leg. Onset: Today Duration: Constant Location: Reports: Abdomen Quality: Reports: Ache, Dull Severity: Moderate Improves with: Reports: None Worsens with: Reports: None Associated Symptoms: Reports: No Other Symptoms ED ROS GENERAL - Review of Systems Review Of Systems: ROS reveals no pertinent complaints other than HPI. ED EXAM, GENERAL - Physical Exam Exam: See Below Exam Limited By: No Limitations General Appearance: Alert, WD/WN, Anxious, Moderate Distress, Thin Eye Exam: Bilateral Eye: EOMI, Normal Inspection, PERRL Ears: Normal External Exam, Normal Canal, Hearing Grossly Normal, Normal TMs Nose: Normal Inspection, Normal Mucosa, No Blood Throat/Mouth: Normal Inspection, Normal Lips, Normal Teeth, Normal Gums, Normal Oropharynx, Normal Voice, No Airway Compromise Head: Atraumatic, Normocephalic Neck: Normal Inspection, Supple, Non-Tender, Full Range of Motion Respiratory/Chest: No Respiratory Distress, Lungs Clear, Normal Breath Sounds, No Accessory Muscle Use, Chest Non-Tender Cardiovascular: Normal Peripheral Pulses, Regular Rate, Rhythm, No Edema, No Gallop, No JVD, No Murmur, No Rub GI/Abdominal: Normal Bowel Sounds, Soft, Non-Tender, No Organomegaly, No Distention, No Abnormal Bruit, No Mass (Female) Exam: Deferred Rectal (Female) Exam: Deferred Back Exam: Normal Inspection, Full Range of Motion, NT Extremities: Normal Inspection, Normal Range of Motion, Non-Tender, Normal Capillary Refill, Other (bilateral lower extremity amputations) Neurological: Alert, Oriented, CN II-XII Intact Psychiatric: Normal Affect, Normal Mood Skin Exam: Warm, Dry, Intact, Normal Color, No Rash Lymphatic: No Adenopathy Course - Re-Assessments/Exams Free Text/Narrative Re-Assessment/Exam: 12/20/16 21:33 Discussed the history, examination, lab and CT results with Dr. Arroyo ( Hospitalist with [facility] in [place]). Dr. Arroyo advised to have the patient transferred to [facility] in [place] for continued evaluation and management. Departure - Departure Time of Disposition: 21:30 Condition: serious
[2016-12-20] MEDS ORDERED: Sodium Chloride 0.9% 10 ML Syringe FLUSH PRN (16:51)
[2016-12-20] MEDS ORDERED: Sodium Chloride 0.9% 1,000 ML IV ONE (16:52)
[2016-12-20] MEDS ORDERED: Ondansetron 4 MG/2 ML SDV IV ONE (16:52)
[2016-12-20 17:27] LABS: BASE EXCESS ARTERIAL -10 mmol/L ((-2)-(+3)); O2 DELIVERY DEVICE ROOM AIR; O2 SATURATION ARTERIAL 98 % (95-100); PCO2 ARTERIAL 29 mmHg (35-45); PO2 ARTERIAL 102 mmHg (70-100)
[2016-12-20 17:52] VITALS: BP 112/77
[2016-12-20 18:37] LABS: CHLORIDE,CL 103 mmol/L (101-111); SODIUM,NA 129 mmol/L (135-145)
[2016-12-20] MEDS ORDERED: Ondansetron 4 MG Tab.DIS PO ONE (19:24)
== END 2016-12-20 21:50 ==
LOC: DL.ED 16:48
DX: N12 Tubulo-interstitial nephritis, not specified as acute or chronic (principal); J45.909 Unspecified asthma, uncomplicated; I10 Essential (primary) hypertension; K21.9 Gastro-esophageal reflux disease without esophagitis; F17.210 Nicotine dependence, cigarettes, uncomplicated; E11.40 Type 2 diabetes mellitus with diabetic neuropathy, unspecified; Z90.710 Acquired absence of both cervix and uterus; Z88.1 Allergy status to other antibiotic agents; Z88.8 Allergy status to other drugs, medicaments and biological substances; Z88.5 Allergy status to narcotic agent; Z79.4 Long term (current) use of insulin; Z79.01 Long term (current) use of anticoagulants; Z79.899 Other long term (current) drug therapy
CPT/HCPCS: 36415; 36600; 74176; 80053; 80305; 81001; 82009; 82150; 82803; 82962; 83605; 83690; 83880; 85025; 87040; 87077; 87186; 99285; A9270; G0480

== ENCOUNTER 2016-12-29 01:26 | Emergency (ER) | payer MEDICAID, OTHER ==
[2016-12-29] MEDS ORDERED: Acetaminophen/HYDROcodone 325-10 MG Tab PO ONE (02:14)
--- NOTE | 2016-12-29 02:26 | EDM.PDOC ---
ED HPI GENERAL MEDICAL PROBLEM - General Chief Complaint: Abdominal Pain Stated Complaint: AMBULANCE Time Seen by Provider: 12/29/16 02:21 Source of Information: Reports: Patient History Limitations: Reports: No Limitations - History of Present Illness INITIAL COMMENTS - FREE TEXT/NARRATIVE: states just left [facility] today, c/o abd' pain and bloating and had this @ [facility] but they didn't do anything. 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 Abdominal Pain Score (Numeric/FACES): 7 - Related Data Allergies Allergy/AdvReac Type Severity Reaction Status Date / Time amoxicillin Allergy Cannot Verified 11/04/16 22:44 Remember cephalexin Allergy Cannot Verified 11/04/16 22:44 Remember ciprofloxacin Allergy Cannot Verified 11/04/16 22:44 Remember fentanyl Allergy Cannot Verified 11/04/16 22:44 Remember nitrofurantoin Allergy Cannot Verified 11/04/16 22:44 Remember NSAIDS (Non-Steroidal Allergy Bleeding Verified 11/04/16 22:44 Anti-Inflamma sumatriptan [From Imitrex] Allergy Hives Verified 11/04/16 22:44 sumatriptan succinate Allergy Hives Verified 11/04/16 22:44 [From Imitrex] tramadol AdvReac Bleeding Verified 11/04/16 22:44 Home Meds: Home Meds Insulin Detemir [Levemir Flexpen] 20 unit SQ BID 07/27/13 [History] Multivitamin [Multivitamins] 1 each PO DAILY #30 capsule 09/13/14 [Rx] Ferrous Sulfate [Iron] 325 mg PO DAILY #15 capsule.er 08/07/15 [Rx] Insulin Aspart [Novolog Flexpen] 15 unit SQ QID 12/20/15 [History] Ondansetron [Ondansetron ODT] 8 mg PO Q8H PRN 10/14/16 [History] Pantoprazole [ProTONIX] 40 mg PO DAILY 10/14/16 [History] Warfarin Sodium [Jantoven] 5 mg PO DAILY 10/14/16 [History] atorvaSTATin [Lipitor] 40 mg PO DAILY 10/14/16 [History] buPROPion HCl [Wellbutrin Sr] 150 mg PO BID 10/14/16 [History] Gabapentin [Neurontin] 100 mg PO TID 11/04/16 [History] Cefpodoxime [Vantin] 100 mg PO BID 12/29/16 [History] Prednisone [IJD: Prednisone] 3 tab PO DAILY 12/29/16 [History] Past Medical History HEENT History: Reports: Impaired Vision Cardiovascular History: Reports: Blood Clots/VTE/DVT, High Cholesterol, Hypertension Respiratory History: Reports: Asthma Gastrointestinal History: Reports: GERD, Hepatitis Genitourinary History: Reports: Diabetic Nephropathy 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: , 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) Other OB/BYN History: 4 c-sections Musculoskeletal History: Reports: Amputation Other Musculoskeletal History: bell amp Neurological History: Reports: Neuropathy, Diabetic, Neuropathy, Peripheral Psychiatric History: Reports: Addiction Endocrine/Metabolic History: Reports: Diabetes, Type II, IDDM Hematologic History: Reports: Iron Deficiency Immunologic History: Reports: None Oncologic (Cancer) History: Reports: None Dermatologic History: Reports: Cellulitis - Infectious Disease History Infectious Disease History: Reports: Hepatitis C - Past Surgical History Female Surgical History: Reports: Section, Hysterectomy Neurological Surgical History: Reports: 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) Musculoskeletal Surgical History: Reports: Amputation, 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) Social & Family History - Family History Family Medical History: Noncontributory - Tobacco Use Smoking Status *Q: Current Some Day Smoker Years of Tobacco use: 29 Packs/Tins Daily: 1 Used Tobacco, but Quit: Yes Month Tobacco Last Used: feb 2016 Second Hand Smoke Exposure: Yes - Caffeine Use Caffeine Use: Reports: Coffee - Alcohol Use Days Per Week of Alcohol Use: 0 - Recreational Drug Use Recreational Drug Use: No Drug Use in Last 12 Months: Yes Recreational Drug Type: Reports: Marijuana/Hashish Recreational Drug Use Frequency: Weekly - Living Situation & Occupation Living situation: Reports: Single, with Family Occupation: Disabled ED ROS GENERAL - Review of Systems Review Of Systems: ROS reveals no pertinent complaints other than HPI. ED EXAM, GI/ABD - Physical Exam Exam: See Below Exam Limited By: No Limitations General Appearance: Alert, WD/WN, Mild Distress, Other (crying) Ears: Hearing Grossly Normal Throat/Mouth: Normal Voice, No Airway Compromise Head: Atraumatic Neck: Non-Tender, Full Range of Motion Respiratory/Chest: No Respiratory Distress Cardiovascular: Regular Rate, Rhythm GI/Abdominal: Hyperactive Bowel Sounds, Tenderness, Distention, Guarding. No: Rebound, Rigidity Neurological: Alert, Oriented, Normal Cognition Psychiatric: Tearful Skin Exam: Warm, Dry Lymphatic: No Adenopathy Course - Vital Signs Last Recorded V/S: Last Vital Signs Temp 35.6 C 12/29/16 01:30 Pulse 86 12/29/16 01:30 Resp 24 H 12/29/16 01:30 BP 124/71 12/29/16 01:30 Pulse Ox 98 12/29/16 01:35 - Orders/Labs/Meds Labs: Laboratory Tests 12/29/16 12/29/16 12/29/16 Range/Units 02:55 03:35 05:40 WBC 17.5 H (5.0-10.0) 10^3/uL RBC 3.86 L (4.2-5.4) 10^6/uL Hgb 10.9 L (12.0-16.0) g/dL Hct 34.4 L (37.0-47.0) % MCV 89.1 (80-100) fL MCH 28.2 (27.0-34.0) pg MCHC 31.7 L (33.0-35.0) g/dL Plt Count 377 (150-450) 10^3/uL Neut % (Auto) 84.5 H (42.2-75.2) % Lymph % (Auto) 6.9 L (20.5-50.1) % [place] % (Auto) 8.1 H (2-8) % Eos % (Auto) 0.4 L (1.0-3.0) % Baso % (Auto) 0.1 (0.0-1.0) % Add Manual Diff Yes Neutrophils % (Manual) 63 % Band Neutrophils % 17 % Lymphocytes % (Manual) 10 % Atypical Lymphs % 0 % Monocytes % (Manual) 7 % Eosinophils % (Manual) 3 % Basophils % (Manual) 0 Sodium 132 L (135-145) mmol/L Potassium 5.2 H (3.6-5.0) mmol/L Chloride 105 (101-111) mmol/L Carbon Dioxide 18.0 L (21.0-31.0) mmol/L Anion Gap 14.2 BUN 51 H (7-18) mg/dL Creatinine 1.7 H (0.6-1.3) mg/dL Est Cr Clr Drug Dosing 30.47 mL/min Estimated GFR (MDRD) 32 BUN/Creatinine Ratio 30.00 Glucose 522 H* (74-105) mg/dL POC Glucose 466 H* (70-105) mg/dl Calcium 7.9 L (8.4-10.2) mg/dl Total Bilirubin 0.4 (0.2-1.0) mg/dL AST 24 (10-42) IU/L ALT 21 (10-60) IU/L Alkaline Phosphatase 80 (42-121) IU/L Total Protein 5.5 L (6.7-8.2) g/dl Albumin 2.2 L (3.2-5.5) g/dl Globulin 3.3 Albumin/Globulin Ratio 0.67 Meds: Medications Discontinued Medications Generic Name Dose Route Start Last Admin Trade Name Freq PRN Reason Stop Dose Admin Hydrocodone Bitart/Acetaminophen 1 tab 12/29/16 02:14 12/29/16 02:20 [place] 325-10 Mg PO 12/29/16 02:15 1 tab ONETIME ONE Administration Insulin Human Regular 5 unit 12/29/16 04:23 12/29/16 04:29 Humulin R SUBCUT 12/29/16 04:24 5 units ONETIME ONE Administration Protocol - Re-Assessments/Exams Free Text/Narrative Re-Assessment/Exam: 12/29/16 06:[address] Yarbrough @ who kindly accepted Pt. Departure - Departure Time of Disposition: 06:26 Disposition: DC/Tfer to Acute Hospital 02 Condition: Fair Clinical Impression: Colon obstruction Abdominal pain Qualifiers: Abdominal location: generalized Qualified Code(s): R10.84 - Generalized abdominal pain Uncontrolled diabetes mellitus Qualifiers: Diabetes mellitus type: type 2 Diabetes mellitus complication status: with hyperglycemia Diabetes mellitus usp insulin use: with usp use Qualified Code(s): E11.65 - Type 2 diabetes mellitus with hyperglycemia; Z79.4 - group home (current) use of insulin - Discharge Information Forms: Interfacility Transfer EMTALA
[2016-12-29 02:32] VITALS: BP 124/71
[2016-12-29] MEDS ORDERED: Insulin Regular, Human 100 Units/ML 3 ML Vial SUBCUT ONE (04:23)
== END 2016-12-29 07:10 ==
LOC: DL.ED 01:26
DX: K56.60 Unspecified intestinal obstruction (principal); R10.84 Generalized abdominal pain; E11.65 Type 2 diabetes mellitus with hyperglycemia; H54.7 Unspecified visual loss; J45.909 Unspecified asthma, uncomplicated; E11.40 Type 2 diabetes mellitus with diabetic neuropathy, unspecified; E78.00 Pure hypercholesterolemia, unspecified; I10 Essential (primary) hypertension; K21.9 Gastro-esophageal reflux disease without esophagitis; E11.21 Type 2 diabetes mellitus with diabetic nephropathy; F17.210 Nicotine dependence, cigarettes, uncomplicated; Z90.710 Acquired absence of both cervix and uterus; Z79.4 Long term (current) use of insulin; Z88.1 Allergy status to other antibiotic agents; Z88.8 Allergy status to other drugs, medicaments and biological substances; Z88.6 Allergy status to analgesic agent; Z79.01 Long term (current) use of anticoagulants; Z88.5 Allergy status to narcotic agent
CPT/HCPCS: 36415; 74176; 80053; 82962; 85025; 96372; 99285; A9270; J1815

== ENCOUNTER 2017-01-23 01:26 | Emergency (ER) | payer MEDICAID, OTHER ==
[2017-01-23 01:39] VITALS: BP 91/50
[2017-01-23] MEDS ORDERED: Insulin Regular, Human 100 Units/ML 3 ML Vial SUBCUT ONE ×2 (02:02→03:09)
--- NOTE | 2017-01-23 02:48 | EDM.PDOC ---
ED HPI GENERAL MEDICAL PROBLEM - General Chief Complaint: General Stated Complaint: AMBULANCE Time Seen by Provider: 01/23/17 01:40 Source of Information: Reports: Patient, EMS History Limitations: Reports: No Limitations - History of Present Illness INITIAL COMMENTS - FREE TEXT/NARRATIVE: ED via ambulance with report of loose stool, lethargy. Patient recently discharged from [facility]. Onset: Gradual Location: Reports: Chest Severity: Mild Improves with: Reports: Immobilization Worsens with: Reports: Movement Abdomen Pain Score (Numeric/FACES): 6 - Related Data Allergies Allergy/AdvReac Type Severity Reaction Status Date / Time amoxicillin Allergy Cannot Verified 01/23/17 01:31 Remember cephalexin Allergy Cannot Verified 01/23/17 01:31 Remember ciprofloxacin Allergy Cannot Verified 01/23/17 01:31 Remember fentanyl Allergy Cannot Verified 01/23/17 01:31 Remember nitrofurantoin Allergy Cannot Verified 01/23/17 01:31 Remember NSAIDS (Non-Steroidal Allergy Bleeding Verified 01/23/17 01:31 Anti-Inflamma sumatriptan [From Imitrex] Allergy Hives Verified 01/23/17 01:31 sumatriptan succinate Allergy Hives Verified 01/23/17 01:31 [From Imitrex] tramadol AdvReac Bleeding Verified 01/23/17 01:31 Home Meds: Home Meds Insulin Detemir [Levemir Flexpen] 20 unit SQ BID 07/27/13 [History] Multivitamin [Multivitamins] 1 each PO DAILY #30 capsule 09/13/14 [Rx] Ferrous Sulfate [Iron] 325 mg PO DAILY #15 capsule.er 08/07/15 [Rx] Insulin Aspart [Novolog Flexpen] 15 unit SQ QID 12/20/15 [History] Ondansetron [Ondansetron ODT] 8 mg PO Q8H PRN 10/14/16 [History] Pantoprazole [ProTONIX] 40 mg PO DAILY 10/14/16 [History] Warfarin Sodium [Jantoven] 5 mg PO DAILY 10/14/16 [History] atorvaSTATin [Lipitor] 40 mg PO DAILY 10/14/16 [History] buPROPion HCl [Wellbutrin Sr] 150 mg PO BID 10/14/16 [History] Gabapentin [Neurontin] 100 mg PO TID 11/04/16 [History] Cefpodoxime [Vantin] 100 mg PO BID 12/29/16 [History] Prednisone [IJD: Prednisone] 3 tab PO DAILY 12/29/16 [History] Past Medical History HEENT History: Reports: Impaired Vision Cardiovascular History: Reports: Blood Clots/VTE/DVT, High Cholesterol, Hypertension Respiratory History: Reports: Asthma Gastrointestinal History: Reports: GERD, Hepatitis Genitourinary History: Reports: Diabetic Nephropathy 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: , 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) Other OB/BYN History: 4 c-sections Musculoskeletal History: Reports: Amputation Other Musculoskeletal History: bell amp Neurological History: Reports: Neuropathy, Diabetic, Neuropathy, Peripheral Psychiatric History: Reports: Addiction Endocrine/Metabolic History: Reports: Diabetes, Type II, IDDM Hematologic History: Reports: Iron Deficiency Immunologic History: Reports: None Oncologic (Cancer) History: Reports: None Dermatologic History: Reports: Cellulitis - Infectious Disease History Infectious Disease History: Reports: Hepatitis C - Past Surgical History Female Surgical History: Reports: Section, Hysterectomy Neurological Surgical History: Reports: 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) Musculoskeletal Surgical History: Reports: Amputation, 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) Social & Family History - Family History Family Medical History: Noncontributory - Tobacco Use Smoking Status *Q: Never Smoker Years of Tobacco use: 29 Packs/Tins Daily: 1 Used Tobacco, but Quit: Yes Month Tobacco Last Used: feb 2016 Second Hand Smoke Exposure: Yes - Caffeine Use Caffeine Use: Reports: Coffee - Alcohol Use Days Per Week of Alcohol Use: 0 - Recreational Drug Use Recreational Drug Use: No Drug Use in Last 12 Months: Yes Recreational Drug Type: Reports: Marijuana/Hashish Recreational Drug Use Frequency: Weekly - Living Situation & Occupation Living situation: Reports: Single, with Family Occupation: Disabled ED ROS GENERAL - Review of Systems Review Of Systems: See Below Constitutional: Reports: Chills, Malaise, Decreased Appetite HEENT: Reports: No Symptoms Respiratory: Reports: No Symptoms Cardiovascular: Reports: No Symptoms Endocrine: Reports: No Symptoms GI/Abdominal: Reports: Diarrhea, Decreased Appetite : Reports: No Symptoms Musculoskeletal: Reports: No Symptoms Skin: Reports: No Symptoms Neurological: Reports: Weakness Psychiatric: Reports: No Symptoms ED EXAM, GENERAL - Physical Exam Exam: See Below Exam Limited By: No Limitations General Appearance: Lethargic Eye Exam: Bilateral Eye: EOMI, PERRL Ears: Normal External Exam, Normal TMs Nose: Normal Inspection Throat/Mouth: Normal Inspection, Normal Lips, Normal Oropharynx, No Airway Compromise Head: Atraumatic, Other Neck: Normal Inspection, Supple, Full Range of Motion Respiratory/Chest: No Respiratory Distress, Lungs Clear, Normal Breath Sounds Cardiovascular: Normal Peripheral Pulses, Regular Rate, Rhythm GI/Abdominal: Normal Bowel Sounds, Soft, Non-Tender, No Mass Extremities: Normal Inspection, Normal Range of Motion, Slow Capillary Refill Course - Vital Signs Last Recorded V/S: Last Vital Signs Temp 97.0 F 01/23/17 01:32 Pulse 95 01/23/17 01:32 Resp 18 01/23/17 01:32 BP 91/50 L 01/23/17 01:32 Pulse Ox 98 01/23/17 01:32 - Orders/Labs/Meds Labs: Laboratory Tests 01/23/17 01/23/17 01/23/17 Range/Units 01:43 01:43 01:55 WBC 8.5 (5.0-10.0) 10^3/uL RBC 4.48 (4.2-5.4) 10^6/uL Hgb 12.9 (12.0-16.0) g/dL Hct 39.6 (37.0-47.0) % MCV 88.4 (80-100) fL MCH 28.8 (27.0-34.0) pg MCHC 32.6 L (33.0-35.0) g/dL Plt Count 516 H (150-450) 10^3/uL PT (9.0-12.0) SEC INR (0.9-1.2) Sodium (135-145) mmol/L Potassium (3.6-5.0) mmol/L Chloride (101-111) mmol/L Carbon Dioxide (21.0-31.0) mmol/L Anion Gap BUN (7-18) mg/dL Creatinine (0.6-1.3) mg/dL Est Cr Clr Drug Dosing mL/min Estimated GFR (MDRD) BUN/Creatinine Ratio Glucose (74-105) mg/dL POC Glucose (70-105) mg/dl Lactic Acid (0.5-2.2) mmol/L Calcium (8.4-10.2) mg/dl Total Bilirubin (0.2-1.0) mg/dL AST (10-42) IU/L ALT (10-60) IU/L Alkaline Phosphatase (42-121) IU/L Ammonia (11-35) umol/L Total Protein (6.7-8.2) g/dl Albumin (3.2-5.5) g/dl Globulin Albumin/Globulin Ratio Amylase (28-100) U/L Urine Color Yellow (YELLOW) Urine Appearance Turbid (CLEAR) Urine pH 5.5 (5.0-9.0) Ur Specific Center 1.020 (1.005-1.030) Urine Protein >=300 H (NEGATIVE) Urine Glucose (UA) >=1000 H (NEGATIVE) Urine Ketones Negative (NEGATIVE) Urine Occult Blood Large H (NEGATIVE) Urine Nitrite Negative (NEGATIVE) Urine Bilirubin Small H (NEGATIVE) Urine Urobilinogen 0.2 (0.2-1.0) mg/dL Ur Leukocyte Esterase Large H (NEGATIVE) Urine RBC 5-10 H /HPF Urine WBC 50-75 H (0-5/HPF) /HPF Ur Epithelial Cells Not seen /HPF Calcium Phosphate Cryst Cancelled Calcium Oxalate Crystal Cancelled Uric Acid Crystals Cancelled Triple Phos Crystals Cancelled Other Crystals Cancelled Amorphous Sediment Cancelled Urine Bacteria Many H (0-FEW/HPF) /HPF Hyaline Casts Cancelled Granular Casts Cancelled Fine Granular Casts Cancelled Coarse Granular Casts Cancelled Urine Mucus Cancelled Urine Other Cancelled Urine Trichomonas Cancelled Urine Yeast Cancelled Urinalysis Comment Cancelled Urine Opiates Screen Negative (NEGATIVE) Ur Oxycodone Screen Negative (NEGATIVE) Urine Methadone Screen Negative (NEGATIVE) Ur Barbiturates Screen Negative (NEGATIVE) U Tricyclic Antidepress Negative (NEGATIVE) Ur Phencyclidine Scrn Negative (NEGATIVE) Ur Amphetamine Screen Negative (NEGATIVE) U Methamphetamines Scrn Negative (NEGATIVE) Urine MDMA Screen Negative (NEGATIVE) U Benzodiazepines Scrn Negative (NEGATIVE) Urine Cocaine Screen Negative (NEGATIVE) U Marijuana (THC) Screen Negative (NEGATIVE) 01/23/17 01/23/17 01/23/17 Range/Units 01:55 01:55 01:55 WBC (5.0-10.0) 10^3/uL RBC (4.2-5.4) 10^6/uL Hgb (12.0-16.0) g/dL Hct (37.0-47.0) % MCV (80-100) fL MCH (27.0-34.0) pg MCHC (33.0-35.0) g/dL Plt Count (150-450) 10^3/uL PT 8.4 L (9.0-12.0) SEC INR 0.8 L (0.9-1.2) Sodium 135 (135-145) mmol/L Potassium 3.6 (3.6-5.0) mmol/L Chloride 104 (101-111) mmol/L Carbon Dioxide 19.0 L (21.0-31.0) mmol/L Anion Gap 15.6 BUN 29 H (7-18) mg/dL Creatinine 1.7 H (0.6-1.3) mg/dL Est Cr Clr Drug Dosing 29.39 mL/min Estimated GFR (MDRD) 32 BUN/Creatinine Ratio 17.05 Glucose 365 H (74-105) mg/dL POC Glucose (70-105) mg/dl Lactic Acid (0.5-2.2) mmol/L Calcium 8.5 (8.4-10.2) mg/dl Total Bilirubin 0.3 (0.2-1.0) mg/dL AST 41 (10-42) IU/L ALT 40 (10-60) IU/L Alkaline Phosphatase 174 H (42-121) IU/L Ammonia 17 (11-35) umol/L Total Protein 7.1 (6.7-8.2) g/dl Albumin 2.7 L (3.2-5.5) g/dl Globulin 4.4 Albumin/Globulin Ratio 0.61 Amylase 46 (28-100) U/L Urine Color (YELLOW) Urine Appearance (CLEAR) Urine pH (5.0-9.0) Ur Specific Center (1.005-1.030) Urine Protein (NEGATIVE) Urine Glucose (UA) (NEGATIVE) Urine Ketones (NEGATIVE) Urine Occult Blood (NEGATIVE) Urine Nitrite (NEGATIVE) Urine Bilirubin (NEGATIVE) Urine Urobilinogen (0.2-1.0) mg/dL Ur Leukocyte Esterase (NEGATIVE) Urine RBC /HPF Urine WBC (0-5/HPF) /HPF Ur Epithelial Cells /HPF Calcium Phosphate Cryst Calcium Oxalate Crystal Uric Acid Crystals Triple Phos Crystals Other Crystals Amorphous Sediment Urine Bacteria (0-FEW/HPF) /HPF Hyaline Casts Granular Casts Fine Granular Casts Coarse Granular Casts Urine Mucus Urine Other Urine Trichomonas Urine Yeast Urinalysis Comment Urine Opiates Screen (NEGATIVE) Ur Oxycodone Screen (NEGATIVE) Urine Methadone Screen (NEGATIVE) Ur Barbiturates Screen (NEGATIVE) U Tricyclic Antidepress (NEGATIVE) Ur Phencyclidine Scrn (NEGATIVE) Ur Amphetamine Screen (NEGATIVE) U Methamphetamines Scrn (NEGATIVE) Urine MDMA Screen (NEGATIVE) U Benzodiazepines Scrn (NEGATIVE) Urine Cocaine Screen (NEGATIVE) U Marijuana (THC) Screen (NEGATIVE) 01/23/17 01/23/17 01/23/17 Range/Units 01:55 02:00 03:07 WBC (5.0-10.0) 10^3/uL RBC (4.2-5.4) 10^6/uL Hgb (12.0-16.0) g/dL Hct (37.0-47.0) % MCV (80-100) fL MCH (27.0-34.0) pg MCHC (33.0-35.0) g/dL Plt Count (150-450) 10^3/uL PT (9.0-12.0) SEC INR (0.9-1.2) Sodium (135-145) mmol/L Potassium (3.6-5.0) mmol/L Chloride (101-111) mmol/L Carbon Dioxide (21.0-31.0) mmol/L Anion Gap BUN (7-18) mg/dL Creatinine (0.6-1.3) mg/dL Est Cr Clr Drug Dosing mL/min Estimated GFR (MDRD) BUN/Creatinine Ratio Glucose (74-105) mg/dL POC Glucose 421 H* > 500 H* (70-105) mg/dl Lactic Acid 2.4 H (0.5-2.2) mmol/L Calcium (8.4-10.2) mg/dl Total Bilirubin (0.2-1.0) mg/dL AST (10-42) IU/L ALT (10-60) IU/L Alkaline Phosphatase (42-121) IU/L Ammonia (11-35) umol/L Total Protein (6.7-8.2) g/dl Albumin (3.2-5.5) g/dl Globulin Albumin/Globulin Ratio Amylase (28-100) U/L Urine Color (YELLOW) Urine Appearance (CLEAR) Urine pH (5.0-9.0) Ur Specific Center (1.005-1.030) Urine Protein (NEGATIVE) Urine Glucose (UA) (NEGATIVE) Urine Ketones (NEGATIVE) Urine Occult Blood (NEGATIVE) Urine Nitrite (NEGATIVE) Urine Bilirubin (NEGATIVE) Urine Urobilinogen (0.2-1.0) mg/dL Ur Leukocyte Esterase (NEGATIVE) Urine RBC /HPF Urine WBC (0-5/HPF) /HPF Ur Epithelial Cells /HPF Calcium Phosphate Cryst Calcium Oxalate Crystal Uric Acid Crystals Triple Phos Crystals Other Crystals Amorphous Sediment Urine Bacteria (0-FEW/HPF) /HPF Hyaline Casts Granular Casts Fine Granular Casts Coarse Granular Casts Urine Mucus Urine Other Urine Trichomonas Urine Yeast Urinalysis Comment Urine Opiates Screen (NEGATIVE) Ur Oxycodone Screen (NEGATIVE) Urine Methadone Screen (NEGATIVE) Ur Barbiturates Screen (NEGATIVE) U Tricyclic Antidepress (NEGATIVE) Ur Phencyclidine Scrn (NEGATIVE) Ur Amphetamine Screen (NEGATIVE) U Methamphetamines Scrn (NEGATIVE) Urine MDMA Screen (NEGATIVE) U Benzodiazepines Scrn (NEGATIVE) Urine Cocaine Screen (NEGATIVE) U Marijuana (THC) Screen (NEGATIVE) 01/23/17 Range/Units 03:56 WBC (5.0-10.0) 10^3/uL RBC (4.2-5.4) 10^6/uL Hgb (12.0-16.0) g/dL Hct (37.0-47.0) % MCV (80-100) fL MCH (27.0-34.0) pg MCHC (33.0-35.0) g/dL Plt Count (150-450) 10^3/uL PT (9.0-12.0) SEC INR (0.9-1.2) Sodium (135-145) mmol/L Potassium (3.6-5.0) mmol/L Chloride (101-111) mmol/L Carbon Dioxide (21.0-31.0) mmol/L Anion Gap BUN (7-18) mg/dL Creatinine (0.6-1.3) mg/dL Est Cr Clr Drug Dosing mL/min Estimated GFR (MDRD) BUN/Creatinine Ratio Glucose (74-105) mg/dL POC Glucose 354 H (70-105) mg/dl Lactic Acid (0.5-2.2) mmol/L Calcium (8.4-10.2) mg/dl Total Bilirubin (0.2-1.0) mg/dL AST (10-42) IU/L ALT (10-60) IU/L Alkaline Phosphatase (42-121) IU/L Ammonia (11-35) umol/L Total Protein (6.7-8.2) g/dl Albumin (3.2-5.5) g/dl Globulin Albumin/Globulin Ratio Amylase (28-100) U/L Urine Color (YELLOW) Urine Appearance (CLEAR) Urine pH (5.0-9.0) Ur Specific Center (1.005-1.030) Urine Protein (NEGATIVE) Urine Glucose (UA) (NEGATIVE) Urine Ketones (NEGATIVE) Urine Occult Blood (NEGATIVE) Urine Nitrite (NEGATIVE) Urine Bilirubin (NEGATIVE) Urine Urobilinogen (0.2-1.0) mg/dL Ur Leukocyte Esterase (NEGATIVE) Urine RBC /HPF Urine WBC (0-5/HPF) /HPF Ur Epithelial Cells /HPF Calcium Phosphate Cryst Calcium Oxalate Crystal Uric Acid Crystals Triple Phos Crystals Other Crystals Amorphous Sediment Urine Bacteria (0-FEW/HPF) /HPF Hyaline Casts Granular Casts Fine Granular Casts Coarse Granular Casts Urine Mucus Urine Other Urine Trichomonas Urine Yeast Urinalysis Comment Urine Opiates Screen (NEGATIVE) Ur Oxycodone Screen (NEGATIVE) Urine Methadone Screen (NEGATIVE) Ur Barbiturates Screen (NEGATIVE) U Tricyclic Antidepress (NEGATIVE) Ur Phencyclidine Scrn (NEGATIVE) Ur Amphetamine Screen (NEGATIVE) U Methamphetamines Scrn (NEGATIVE) Urine MDMA Screen (NEGATIVE) U Benzodiazepines Scrn (NEGATIVE) Urine Cocaine Screen (NEGATIVE) U Marijuana (THC) Screen (NEGATIVE) Meds: Medications Discontinued Medications Generic Name Dose Route Start Last Admin Trade Name Gloria PRN Reason Stop Dose Admin Sodium Chloride 1,000 mls @ 999 mls/hr 01/23/17 04:08 01/23/17 04:17 Normal Saline IV 01/23/17 05:08 999 mls/hr .BOLUS ONE Administration Ceftriaxone Sodium 1 gm/ 50 mls @ 100 mls/hr 01/23/17 04:12 01/23/17 04:23 Sodium Chloride IV 01/23/17 04:41 100 mls/hr ONETIME ONE Administration Insulin Human Regular 5 unit 01/23/17 02:02 01/23/17 02:32 Humulin R SUBCUT 01/23/17 02:03 5 units ONETIME ONE Administration Protocol Insulin Human Regular 5 unit 01/23/17 03:09 Humulin R SUBCUT 01/23/17 03:10 ONETIME ONE Protocol Insulin Human Regular 5 unit 01/23/17 03:45 01/23/17 03:48 Humulin R IV 01/23/17 03:46 5 units ONETIME ONE Administration Protocol Departure - Departure Time of Disposition: 04:50 Disposition: DC/Tfer to Acute Hospital 02 Condition: Good Clinical Impression: Ketoacidosis in diabetes mellitus, Hyperglycemia - Discharge Information Referrals: PCP,Unobtain [Primary Care Provider] - Forms: ED Department Discharge
[2017-01-23] MEDS ORDERED: Insulin Regular, Human 100 Units/ML 3 ML Vial IV ONE (03:45)
[2017-01-23] MEDS ORDERED: Sodium Chloride 0.9% 1,000 ML IV ONE (04:08)
[2017-01-23] MEDS ORDERED: cefTRIAXone 1 GM in Sodium Chloride 0.9% 50 ML IV ONE (04:12)
== END 2017-01-23 04:50 ==
LOC: DL.ED 01:26
DX: E13.10 Other specified diabetes mellitus with ketoacidosis without coma (principal); H54.7 Unspecified visual loss; E78.00 Pure hypercholesterolemia, unspecified; I10 Essential (primary) hypertension; K21.9 Gastro-esophageal reflux disease without esophagitis; E11.40 Type 2 diabetes mellitus with diabetic neuropathy, unspecified; D64.9 Anemia, unspecified; Z88.1 Allergy status to other antibiotic agents; Z88.8 Allergy status to other drugs, medicaments and biological substances; Z88.6 Allergy status to analgesic agent; Z79.899 Other long term (current) drug therapy; Z79.4 Long term (current) use of insulin; Z90.710 Acquired absence of both cervix and uterus
CPT/HCPCS: 36410; 36415; 71010; 80053; 80305; 81001; 82140; 82150; 82272; 82962; 83605; 85027; 85610; 87040; 87045; 87046; 87086; 87088; 87186; 87493; 87899; 96365; 96375; 99285; J0696; J1815; J7030; J7050; 99284

== ENCOUNTER 2017-02-14 23:26 | Emergency (ER) | payer MEDICAID, OTHER ==
[2017-02-14 23:34] VITALS: BP 141/84
--- NOTE | 2017-02-14 23:45 | EDM.PDOC ---
ED HPI GENERAL MEDICAL PROBLEM - General Chief Complaint: Abdominal Pain Stated Complaint: IN BY AMBULANCE Time Seen by Provider: 02/14/17 23:35 Source of Information: Reports: Patient History Limitations: Reports: No Limitations - History of Present Illness INITIAL COMMENTS - FREE TEXT/NARRATIVE: This 46 yo female patient was brought to the ED with upper abdominal pain for the past 2 days and a headache. The patient reports she has a history of acid reflux and has been taking her medications. The patient reports she has taken Rolaids in the past, but they did not resolve her symptoms. The patient describes her pain as a "burning" pain that goes up into her neck. The patient reports she has had some nausea and vomiting. The patient reports her headache may be from some blood vessels in her eye that were "blown". The patient reports she took Tylenol (325 mg) x 3 at 1830 with no symptom relief. Onset Date: 02/12/17 Duration: Constant Location: Reports: Abdomen (upper abdomen) Quality: Reports: Ache, Dull Severity: Moderate Improves with: Reports: None Worsens with: Reports: None Context: Reports: Other Associated Symptoms: Reports: Nausea/Vomiting Treatments CHANGE MANAGEMENT: Reports: Acetaminophen Bilateral Upper Abdomen Pain Score (Numeric/FACES): 7 - Related Data Allergies Allergy/AdvReac Type Severity Reaction Status Date / Time amoxicillin Allergy Cannot Verified 02/14/17 23:49 Remember cephalexin Allergy Cannot Verified 02/14/17 23:49 Remember ciprofloxacin Allergy Cannot Verified 02/14/17 23:49 Remember fentanyl Allergy Cannot Verified 02/14/17 23:49 Remember nitrofurantoin Allergy Cannot Verified 02/14/17 23:49 Remember NSAIDS (Non-Steroidal Allergy Bleeding Verified 02/14/17 23:49 Anti-Inflamma sumatriptan [From Imitrex] Allergy Hives Verified 02/14/17 23:49 sumatriptan succinate Allergy Hives Verified 02/14/17 23:49 [From Imitrex] tramadol AdvReac Bleeding Verified 02/14/17 23:49 Home Meds: Home Meds Insulin Detemir [Levemir Flexpen] 20 unit SQ BID 07/27/13 [History] Multivitamin [Multivitamins] 1 each PO DAILY #30 capsule 09/13/14 [Rx] Ferrous Sulfate [Iron] 325 mg PO DAILY #15 capsule.er 08/07/15 [Rx] Insulin Aspart [Novolog Flexpen] 15 unit SQ QID 12/20/15 [History] Ondansetron [Ondansetron ODT] 8 mg PO Q8H PRN 10/14/16 [History] Pantoprazole [ProTONIX] 40 mg PO DAILY 10/14/16 [History] atorvaSTATin [Lipitor] 40 mg PO DAILY 10/14/16 [History] buPROPion HCl [Wellbutrin Sr] 150 mg PO BID 10/14/16 [History] Gabapentin [Neurontin] 100 mg PO TID 11/04/16 [History] Cefpodoxime [Vantin] 100 mg PO BID 12/29/16 [History] Past Medical History HEENT History: Reports: Impaired Vision Cardiovascular History: Reports: Blood Clots/VTE/DVT, High Cholesterol, Hypertension Respiratory History: Reports: Asthma Gastrointestinal History: Reports: GERD, Hepatitis Genitourinary History: Reports: Diabetic Nephropathy CLINICAL DIETICIAN History: Reports: , 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) Other OB/BYN History: 4 c-sections Musculoskeletal History: Reports: Amputation Other Musculoskeletal History: bell amp Neurological History: Reports: Neuropathy, Diabetic, Neuropathy, Peripheral Psychiatric History: Reports: Addiction Endocrine/Metabolic History: Reports: Diabetes, Type II, IDDM Hematologic History: Reports: Iron Deficiency Immunologic History: Reports: None Oncologic (Cancer) History: Reports: None Dermatologic History: Reports: Cellulitis - Infectious Disease History Infectious Disease History: Reports: C-Difficile, Hepatitis C - Past Surgical History Female Surgical History: Reports: Section, Hysterectomy Neurological Surgical History: Reports: 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) Musculoskeletal Surgical History: Reports: Amputation, 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) Social & Family History - Family History Family Medical History: Noncontributory - Tobacco Use Smoking Status *Q: Former Smoker Years of Tobacco use: 29 Packs/Tins Daily: 1 Used Tobacco, but Quit: Yes Month Tobacco Last Used: December 2016 Second Hand Smoke Exposure: Yes - Caffeine Use Caffeine Use: Reports: Coffee - Alcohol Use Days Per Week of Alcohol Use: 0 - Recreational Drug Use Recreational Drug Use: No Drug Use in Last 12 Months: Yes Recreational Drug Type: Reports: Marijuana/Hashish Recreational Drug Use Frequency: Weekly - Living Situation & Occupation Living situation: Reports: Single, with Family Occupation: Disabled ED ROS GENERAL - Review of Systems Review Of Systems: ROS reveals no pertinent complaints other than HPI. ED EXAM, GI/ABD - Physical Exam Exam: See Below Exam Limited By: No Limitations General Appearance: Alert, WD/WN, No Apparent Distress Eyes: Bilateral: Normal Appearance, EOMI Ears: Normal External Exam, Normal Canal, Hearing Grossly Normal, Normal TMs Nose: Normal Inspection, Normal Mucosa, No Blood Throat/Mouth: Normal Inspection, Normal Lips, Normal Teeth, Normal Gums, Normal Oropharynx, Normal Voice, No Airway Compromise Head: Atraumatic, Normocephalic Neck: Normal Inspection, Supple, Non-Tender, Full Range of Motion Respiratory/Chest: No Respiratory Distress, Lungs Clear, Normal Breath Sounds, No Accessory Muscle Use, Chest Non-Tender Cardiovascular: Normal Peripheral Pulses, Regular Rate, Rhythm, No Edema, No Gallop, No JVD, No Murmur, No Rub GI/Abdominal Exam: Normal Bowel Sounds, Soft, Tender (mild epigastric pain with palpation) (Female) Exam: Deferred Rectal (Female) Exam: Deferred Back Exam: Normal Inspection, Full Range of Motion, NT Extremities: Normal Inspection, Normal Range of Motion, Non-Tender, Normal Capillary Refill, No Pedal Edema Neurological: Alert, Oriented, CN II-XII Intact, Normal Cognition, Normal Gait, Normal Reflexes, No Motor/Sensory Deficits Psychiatric: Normal Affect, Normal Mood Skin Exam: Warm, Dry, Intact, Normal Color, No Rash Lymphatic: No Adenopathy Course - Vital Signs Last Recorded V/S: Last Vital Signs Temp 36.1 C 02/14/17 23:29 Pulse 75 02/14/17 23:29 Resp 16 02/14/17 23:29 BP 141/84 H 02/14/17 23:29 Pulse Ox 100 02/14/17 23:29 - Orders/Labs/Meds Labs: Laboratory Tests 02/14/17 02/14/17 02/14/17 Range/Units 00:05 00:05 00:05 WBC 8.1 (5.0-10.0) 10^3/uL RBC 3.62 L (4.2-5.4) 10^6/uL Hgb 10.5 L (12.0-16.0) g/dL Hct 31.2 L (37.0-47.0) % MCV 86.2 (80-100) fL MCH 29.0 (27.0-34.0) pg MCHC 33.7 (33.0-35.0) g/dL Plt Count 396 (150-450) 10^3/uL Neut % (Auto) 59.7 (42.2-75.2) % Lymph % (Auto) 33.7 (20.5-50.1) % [place] % (Auto) 5.0 (2-8) % Eos % (Auto) 1.5 (1.0-3.0) % Baso % (Auto) 0.1 (0.0-1.0) % Sodium (135-145) mmol/L Potassium (3.6-5.0) mmol/L Chloride (101-111) mmol/L Carbon Dioxide (21.0-31.0) mmol/L Anion Gap BUN (7-18) mg/dL Creatinine (0.6-1.3) mg/dL Est Cr Clr Drug Dosing mL/min Estimated GFR (MDRD) BUN/Creatinine Ratio Glucose (74-105) mg/dL Lactic Acid 0.9 (0.5-2.2) mmol/L Calcium (8.4-10.2) mg/dl Magnesium 1.5 L (1.8-2.5) mg/dL Total Bilirubin (0.2-1.0) mg/dL AST (10-42) IU/L ALT (10-60) IU/L Alkaline Phosphatase (42-121) IU/L Ammonia (11-35) umol/L Total Protein (6.7-8.2) g/dl Albumin (3.2-5.5) g/dl Globulin Albumin/Globulin Ratio Amylase 30 (28-100) U/L Lipase 17 L (22-51) U/L Urine Color (YELLOW) Urine Appearance (CLEAR) Urine pH (5.0-9.0) Ur Specific [place] (1.005-1.030) Urine Protein (NEGATIVE) Urine Glucose (UA) (NEGATIVE) Urine Ketones (NEGATIVE) Urine Occult Blood (NEGATIVE) Urine Nitrite (NEGATIVE) Urine Bilirubin (NEGATIVE) Urine Urobilinogen (0.2-1.0) mg/dL Ur Leukocyte Esterase (NEGATIVE) Urine RBC /HPF Urine WBC (0-5/HPF) /HPF Ur Epithelial Cells /HPF Urine Bacteria (0-FEW/HPF) /HPF Urine Opiates Screen (NEGATIVE) Ur Oxycodone Screen (NEGATIVE) Urine Methadone Screen (NEGATIVE) Acetaminophen < 10 Ur Barbiturates Screen (NEGATIVE) U Tricyclic Antidepress (NEGATIVE) Ur Phencyclidine Scrn (NEGATIVE) Ur Amphetamine Screen (NEGATIVE) U Methamphetamines Scrn (NEGATIVE) Urine MDMA Screen (NEGATIVE) U Benzodiazepines Scrn (NEGATIVE) Urine Cocaine Screen (NEGATIVE) U Marijuana (THC) Screen (NEGATIVE) 02/14/17 02/15/17 02/15/17 Range/Units 00:05 00:05 00:48 WBC (5.0-10.0) 10^3/uL RBC (4.2-5.4) 10^6/uL Hgb (12.0-16.0) g/dL Hct (37.0-47.0) % MCV (80-100) fL MCH (27.0-34.0) pg MCHC (33.0-35.0) g/dL Plt Count (150-450) 10^3/uL Neut % (Auto) (42.2-75.2) % Lymph % (Auto) (20.5-50.1) % [place] % (Auto) (2-8) % Eos % (Auto) (1.0-3.0) % Baso % (Auto) (0.0-1.0) % Sodium 130 L (135-145) mmol/L Potassium 4.7 (3.6-5.0) mmol/L Chloride 105 (101-111) mmol/L Carbon Dioxide 17.0 L (21.0-31.0) mmol/L Anion Gap 12.7 BUN 23 H (7-18) mg/dL Creatinine 1.2 (0.6-1.3) mg/dL Est Cr Clr Drug Dosing 43.16 mL/min Estimated GFR (MDRD) 48 BUN/Creatinine Ratio 19.16 Glucose 367 H (74-105) mg/dL Lactic Acid (0.5-2.2) mmol/L Calcium 7.9 L (8.4-10.2) mg/dl Magnesium (1.8-2.5) mg/dL Total Bilirubin 0.2 (0.2-1.0) mg/dL AST 18 (10-42) IU/L ALT 27 (10-60) IU/L Alkaline Phosphatase 130 H (42-121) IU/L Ammonia 36 H (11-35) umol/L Total Protein 5.7 L (6.7-8.2) g/dl Albumin 2.1 L (3.2-5.5) g/dl Globulin 3.6 Albumin/Globulin Ratio 0.58 Amylase (28-100) U/L Lipase (22-51) U/L Urine Color (YELLOW) Urine Appearance (CLEAR) Urine pH (5.0-9.0) Ur Specific [place] (1.005-1.030) Urine Protein (NEGATIVE) Urine Glucose (UA) (NEGATIVE) Urine Ketones (NEGATIVE) Urine Occult Blood (NEGATIVE) Urine Nitrite (NEGATIVE) Urine Bilirubin (NEGATIVE) Urine Urobilinogen (0.2-1.0) mg/dL Ur Leukocyte Esterase (NEGATIVE) Urine RBC /HPF Urine WBC (0-5/HPF) /HPF Ur Epithelial Cells /HPF Urine Bacteria (0-FEW/HPF) /HPF Urine Opiates Screen Negative (NEGATIVE) Ur Oxycodone Screen Positive H (NEGATIVE) Urine Methadone Screen Negative (NEGATIVE) Acetaminophen Ur Barbiturates Screen Negative (NEGATIVE) U Tricyclic Antidepress Negative (NEGATIVE) Ur Phencyclidine Scrn Negative (NEGATIVE) Ur Amphetamine Screen Negative (NEGATIVE) U Methamphetamines Scrn Positive H (NEGATIVE) Urine MDMA Screen Negative (NEGATIVE) U Benzodiazepines Scrn Negative (NEGATIVE) Urine Cocaine Screen Negative (NEGATIVE) U Marijuana (THC) Screen Positive H (NEGATIVE) 02/15/17 Range/Units 00:48 WBC (5.0-10.0) 10^3/uL RBC (4.2-5.4) 10^6/uL Hgb (12.0-16.0) g/dL Hct (37.0-47.0) % MCV (80-100) fL MCH (27.0-34.0) pg MCHC (33.0-35.0) g/dL Plt Count (150-450) 10^3/uL Neut % (Auto) (42.2-75.2) % Lymph % (Auto) (20.5-50.1) % [place] % (Auto) (2-8) % Eos % (Auto) (1.0-3.0) % Baso % (Auto) (0.0-1.0) % Sodium (135-145) mmol/L Potassium (3.6-5.0) mmol/L Chloride (101-111) mmol/L Carbon Dioxide (21.0-31.0) mmol/L Anion Gap BUN (7-18) mg/dL Creatinine (0.6-1.3) mg/dL Est Cr Clr Drug Dosing mL/min Estimated GFR (MDRD) BUN/Creatinine Ratio Glucose (74-105) mg/dL Lactic Acid (0.5-2.2) mmol/L Calcium (8.4-10.2) mg/dl Magnesium (1.8-2.5) mg/dL Total Bilirubin (0.2-1.0) mg/dL AST (10-42) IU/L ALT (10-60) IU/L Alkaline Phosphatase (42-121) IU/L Ammonia (11-35) umol/L Total Protein (6.7-8.2) g/dl Albumin (3.2-5.5) g/dl Globulin Albumin/Globulin Ratio Amylase (28-100) U/L Lipase (22-51) U/L Urine Color Yellow (YELLOW) Urine Appearance Cloudy (CLEAR) Urine pH 5.0 (5.0-9.0) Ur Specific [place] 1.020 (1.005-1.030) Urine Protein >=300 H (NEGATIVE) Urine Glucose (UA) 500 H (NEGATIVE) Urine Ketones Negative (NEGATIVE) Urine Occult Blood Moderate H (NEGATIVE) Urine Nitrite Negative (NEGATIVE) Urine Bilirubin Negative (NEGATIVE) Urine Urobilinogen 0.2 (0.2-1.0) mg/dL Ur Leukocyte Esterase Trace H (NEGATIVE) Urine RBC 10-20 H /HPF Urine WBC >100 H (0-5/HPF) /HPF Ur Epithelial Cells Few /HPF Urine Bacteria Many H (0-FEW/HPF) /HPF Urine Opiates Screen (NEGATIVE) Ur Oxycodone Screen (NEGATIVE) Urine Methadone Screen (NEGATIVE) Acetaminophen Ur Barbiturates Screen (NEGATIVE) U Tricyclic Antidepress (NEGATIVE) Ur Phencyclidine Scrn (NEGATIVE) Ur Amphetamine Screen (NEGATIVE) U Methamphetamines Scrn (NEGATIVE) Urine MDMA Screen (NEGATIVE) U Benzodiazepines Scrn (NEGATIVE) Urine Cocaine Screen (NEGATIVE) U Marijuana (THC) Screen (NEGATIVE) Meds: Medications Discontinued Medications Generic Name Dose Route Start Last Admin Trade Name Freq PRN Reason Stop Dose Admin Pantoprazole Sodium 80 mg 02/14/17 23:46 02/14/17 23:57 Protonix Iv IVPUSH 02/14/17 23:47 80 mg .BOLUS ONE Administration Departure - Departure Time of Disposition: : Disposition: Home, Self-Care 01 Condition: Fair Clinical Impression: Abdominal pain, Methamphetamine abuse, Substance abuse - Discharge Information Instructions: Abdominal Pain, Adult, [id number], Stimulant Use Disorder- Methamphetamines Forms: ED Department Discharge Care Plan Goals: The patient was advised of the examination results during the visit. The patient was given a dose of Protonix for abdominal pain. The patient was encouraged to [facility] for [facility] and treatment. If the patient has any additional symptoms or concerns, the patient should visit her primary care facility, [facility] or return to the emergency department.
[2017-02-14] MEDS ORDERED: Pantoprazole 40 MG Vial IVPUSH ONE (23:46)
[2017-02-15 00:35] LABS: ACETAMINOPHEN < 10
== END 2017-02-15 01:35 | disposition home or self-care (01) ==
LOC: DL.ED 23:26
DX: R10.13 Epigastric pain (principal); F15.10 Other stimulant abuse, uncomplicated; F19.10 Other psychoactive substance abuse, uncomplicated; H54.7 Unspecified visual loss; E78.00 Pure hypercholesterolemia, unspecified; I10 Essential (primary) hypertension; J45.909 Unspecified asthma, uncomplicated; K21.9 Gastro-esophageal reflux disease without esophagitis; E11.40 Type 2 diabetes mellitus with diabetic neuropathy, unspecified; E11.21 Type 2 diabetes mellitus with diabetic nephropathy; Z90.710 Acquired absence of both cervix and uterus; Z87.891 Personal history of nicotine dependence; Z88.1 Allergy status to other antibiotic agents; Z88.8 Allergy status to other drugs, medicaments and biological substances; Z88.6 Allergy status to analgesic agent; Z79.4 Long term (current) use of insulin; Z79.899 Other long term (current) drug therapy
CPT/HCPCS: 36415; 80053; 80305; 81001; 82140; 82150; 83605; 83690; 83735; 85025; 96374; 99284; C9113; G0480

== ENCOUNTER 2017-02-16 21:13 | Emergency (ER) | payer MEDICAID, OTHER ==
[2017-02-16 21:18] VITALS: BP 160/71
--- NOTE | 2017-02-16 21:34 | EDM.PDOC ---
ED HPI GENERAL MEDICAL PROBLEM - General Chief Complaint: Neuro Symptoms/Deficits Stated Complaint: AMBULANCE Time Seen by Provider: 02/16/17 21:25 Source of Information: Reports: Patient, EMS History Limitations: Reports: No Limitations - History of Present Illness INITIAL COMMENTS - FREE TEXT/NARRATIVE: This 46 yo female patient was brought to the ED by [facility] due to left sided weakness. The patient reports her symptoms started at about 0100 this morning ( 20 hours prior to presentation in the ED). The patient reports the left sided weakness, blurred vision from her left eye, slurrred speach and difficulties urinating. Onset: Today Onset Date: 02/16/17 Onset Time: 01:00 Duration: Constant Location: Reports: Face, Upper Extremity, Left, Other (left sided vision blurring) Severity: Severe Improves with: Reports: None Worsens with: Reports: None Associated Symptoms: Reports: No Other Symptoms Left Flank Pain Score (Numeric/FACES): 6 - Related Data Allergies Allergy/AdvReac Type Severity Reaction Status Date / Time amoxicillin Allergy Cannot Verified 02/16/17 21:18 Remember cephalexin Allergy Cannot Verified 02/16/17 21:18 Remember ciprofloxacin Allergy Cannot Verified 02/16/17 21:18 Remember fentanyl Allergy Cannot Verified 02/16/17 21:18 Remember nitrofurantoin Allergy Cannot Verified 02/16/17 21:18 Remember NSAIDS (Non-Steroidal Allergy Bleeding Verified 02/16/17 21:18 Anti-Inflamma sumatriptan [From Imitrex] Allergy Hives Verified 02/16/17 21:18 sumatriptan succinate Allergy Hives Verified 02/16/17 21:18 [From Imitrex] tramadol AdvReac Bleeding Verified 02/16/17 21:18 Home Meds: Home Meds Insulin Detemir [Levemir Flexpen] 20 unit SQ BID 07/27/13 [History] Multivitamin [Multivitamins] 1 each PO DAILY #30 capsule 09/13/14 [Rx] Ferrous Sulfate [Iron] 325 mg PO DAILY #15 capsule.er 08/07/15 [Rx] Insulin Aspart [Novolog Flexpen] 15 unit SQ QID 12/20/15 [History] Ondansetron [Ondansetron ODT] 8 mg PO Q8H PRN 10/14/16 [History] Pantoprazole [ProTONIX] 40 mg PO DAILY 10/14/16 [History] atorvaSTATin [Lipitor] 40 mg PO DAILY 10/14/16 [History] buPROPion HCl [Wellbutrin Sr] 150 mg PO BID 10/14/16 [History] Gabapentin [Neurontin] 100 mg PO TID 11/04/16 [History] Cefpodoxime [Vantin] 100 mg PO BID 12/29/16 [History] Past Medical History HEENT History: Reports: Impaired Vision Cardiovascular History: Reports: Blood Clots/VTE/DVT, High Cholesterol, Hypertension Respiratory History: Reports: Asthma Gastrointestinal History: Reports: GERD, Hepatitis Genitourinary History: Reports: Diabetic Nephropathy TOW MATE History: Reports: , 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) Other OB/BYN History: 4 c-sections Musculoskeletal History: Reports: Amputation Other Musculoskeletal History: bell amp Neurological History: Reports: Neuropathy, Diabetic, Neuropathy, Peripheral Psychiatric History: Reports: Addiction Endocrine/Metabolic History: Reports: Diabetes, Type II, IDDM Hematologic History: Reports: Iron Deficiency Immunologic History: Reports: None Oncologic (Cancer) History: Reports: None Dermatologic History: Reports: Cellulitis - Infectious Disease History Infectious Disease History: Reports: C-Difficile, Hepatitis C - Past Surgical History Female Surgical History: Reports: Section, Hysterectomy Neurological Surgical History: Reports: 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) Musculoskeletal Surgical History: Reports: Amputation, 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) Social & Family History - Family History Family Medical History: Noncontributory - Tobacco Use Smoking Status *Q: Former Smoker Years of Tobacco use: 29 Packs/Tins Daily: 1 Used Tobacco, but Quit: Yes Month Tobacco Last Used: December 2016 Second Hand Smoke Exposure: Yes - Caffeine Use Caffeine Use: Reports: Coffee - Alcohol Use Days Per Week of Alcohol Use: 0 - Recreational Drug Use Recreational Drug Use: No Drug Use in Last 12 Months: Yes Recreational Drug Type: Reports: Marijuana/Hashish Recreational Drug Use Frequency: Weekly - Living Situation & Occupation Living situation: Reports: Single, with Family Occupation: Disabled ED ROS GENERAL - Review of Systems Review Of Systems: ROS reveals no pertinent complaints other than HPI. ED EXAM, NEURO - Physical Exam Exam: See Below Exam Limited By: No Limitations General Appearance: Alert, WD/WN, Moderate Distress, Thin Eye Exam: Left Eye: Vision Changes (Patient reports very blurred vision), Bilateral Eye: EOMI, Normal Inspection, PERRL Ears: Normal External Exam, Normal Canal, Hearing Grossly Normal, Normal TMs Nose: Normal Inspection, Normal Mucosa, No Blood Throat/Mouth: Normal Teeth, Normal Gums, Normal Oropharynx, Normal Voice, No Airway Compromise, Other (left sided facial droop) Head Exam: Atraumatic, Normocephalic Neck: Normal Inspection, Supple, Non-Tender, Full Range of Motion Respiratory/Chest: No Respiratory Distress, Lungs Clear, Normal Breath Sounds, No Accessory Muscle Use, Chest Non-Tender Cardiovascular: Normal Peripheral Pulses, Regular Rate, Rhythm, No Edema, No Gallop, No JVD, No Murmur, No Rub GI/Abdominal: Normal Bowel Sounds, Soft, No Organomegaly, No Distention, No Abnormal Bruit, No Mass, Tender (suprapubic tenderness to palpation (with complaint of difficulties urinating)) (Female) Exam: Deferred Rectal (Female) Exam: Deferred Neurological: Alert, Normal Mood/Affect, Other (bilateral lower extremity amputations) Back Exam: Normal Inspection, Full Range of Motion, NT Extremities: Other (left sided upper extremity weakness) Psychiatric: Normal Affect, Normal Mood Skin Exam: Warm, Dry, Intact, Normal Color, No Rash Course - Vital Signs Last Recorded V/S: Last Vital Signs Temp 36.3 C 02/16/17 21:13 Pulse 73 02/16/17 21:13 Resp 18 02/16/17 21:13 BP 160/71 H 02/16/17 21:13 Pulse Ox 100 02/16/17 21:13 - Orders/Labs/Meds Orders: Active Orders 24 hr Category Date Time Status EKG Documentation Completion [RC] URGENT Care 02/16/17 21:12 Active COMPREHENSIVE METABOLIC PN,CMP [CHEM] Urgent Lab 02/16/17 22:05 Received DRUG SCREEN URINE BIORAD [URCHEM] Stat Lab 02/16/17 22:15 Ordered INR,PT,PROTHROMBIN TIME [COAG] Stat Lab 02/16/17 22:05 Received TROPONIN I [CHEM] Urgent Lab 02/16/17 22:05 Received UA W/MICROSCOPIC [URIN] Stat Lab 02/16/17 22:15 Ordered Labs: Laboratory Tests 02/16/17 Range/Units 22:05 WBC 9.1 (5.0-10.0) 10^3/uL RBC 3.62 L (4.2-5.4) 10^6/uL Hgb 10.5 L (12.0-16.0) g/dL Hct 31.4 L (37.0-47.0) % MCV 86.7 (80-100) fL MCH 29.0 (27.0-34.0) pg MCHC 33.4 (33.0-35.0) g/dL Plt Count 398 (150-450) 10^3/uL Neut % (Auto) 64.1 (42.2-75.2) % Lymph % (Auto) 26.1 (20.5-50.1) % [place] % (Auto) 4.5 (2-8) % Eos % (Auto) 5.0 H (1.0-3.0) % Baso % (Auto) 0.3 (0.0-1.0) % Departure - Departure Time of Disposition: 22:27 Disposition: DC/Tfer to Acute Hospital 02 Condition: Serious Clinical Impression: CVA (cerebral vascular accident) Qualifiers: CVA mechanism: unspecified Qualified Code(s): I63.9 - Cerebral infarction, unspecified - Discharge Information Forms: Interfacility Transfer EMTALA Care Plan Goals: Discussed the history, examination, and CT results with Dr. Alvares (Hospitalist with [facility] in [place]). Dr. Alvares accepted the patient for continued evaluation and management. The patient will be transported by [facility]. - My Orders Last 24 Hours: My Active Orders 02/16/17 21:12 EKG Documentation Completion [RC] URGENT 02/16/17 22:05 COMPREHENSIVE METABOLIC PN,CMP [CHEM] Urgent INR,PT,PROTHROMBIN TIME [COAG] Stat TROPONIN I [CHEM] Urgent 02/16/17 22:15 DRUG SCREEN URINE BIORAD [URCHEM] Stat UA W/MICROSCOPIC [URIN] Stat - Assessment/Plan Last 24 Hours: My Active Orders 02/16/17 21:12 EKG Documentation Completion [RC] URGENT 02/16/17 22:05 COMPREHENSIVE METABOLIC PN,CMP [CHEM] Urgent INR,PT,PROTHROMBIN TIME [COAG] Stat TROPONIN I [CHEM] Urgent 02/16/17 22:15 DRUG SCREEN URINE BIORAD [URCHEM] Stat UA W/MICROSCOPIC [URIN] Stat
[2017-02-16 22:43] LABS: CHLORIDE,CL 104 mmol/L (101-111); SODIUM,NA 130 mmol/L (135-145)
--- NOTE | 2017-02-18 09:40 | EKG ---
02/16/2017- MAE DYKES - EKG per my reading shows sinus rhythm at a rate of [address] [facility] /[id number]
== END 2017-02-16 22:47 ==
LOC: DL.ED 21:13
DX: I63.9 Cerebral infarction, unspecified (principal); H54.7 Unspecified visual loss; E78.00 Pure hypercholesterolemia, unspecified; I10 Essential (primary) hypertension; J45.909 Unspecified asthma, uncomplicated; K21.9 Gastro-esophageal reflux disease without esophagitis; E11.40 Type 2 diabetes mellitus with diabetic neuropathy, unspecified; Z87.891 Personal history of nicotine dependence; Z88.1 Allergy status to other antibiotic agents; Z88.8 Allergy status to other drugs, medicaments and biological substances; Z88.6 Allergy status to analgesic agent; Z79.4 Long term (current) use of insulin; Z79.899 Other long term (current) drug therapy
CPT/HCPCS: 36415; 70450; 80053; 80305; 81001; 84484; 85025; 85610; 93005; 99285

== ENCOUNTER 2017-06-26 17:44 | Emergency (ER) | payer MEDICAID, OTHER ==
--- NOTE | 2017-06-26 17:52 | EDM.PDOC ---
<Prudencio Dennis - Last Filed: 06/26/17 19:03> ED HPI GENERAL MEDICAL PROBLEM - General Chief Complaint: Upper Extremity Injury/Pain Stated Complaint: CAME BY AMBULANCE Time Seen by Provider: 06/26/17 17:45 Source of Information: Reports: Patient, EMS History Limitations: Reports: No Limitations - History of Present Illness INITIAL COMMENTS - FREE TEXT/NARRATIVE: This 47 yo female patient was brought to the ED by [facility] due to pain and drainage from her right hand. The patient was seen about 1 week ago for surgical debridement of her right hand in [facility]. The patient called the ambulance tonight due to increased pain going up her arm, drainage from her wound and a cough for a couple of days. The patient reported to EMS that she did not take her medications today. EMS reports her blood sugar read "high". The patient reports she has not been taking her medications for the past 2 days because she has been sleeping. The patient denies any drug or alcohol use in the past 2 weeks. Onset: Gradual Duration: Day(s):, Constant Location: Reports: Chest, Upper Extremity, Right Quality: Reports: Ache, Sharp Severity: Severe Improves with: Reports: None Worsens with: Reports: None Associated Symptoms: Reports: No Other Symptoms Right Hand Pain Score (Numeric/FACES): 7 - Related Data Allergies Allergy/AdvReac Type Severity Reaction Status Date / Time amoxicillin Allergy Cannot Verified 06/26/17 17:44 Remember cephalexin Allergy Cannot Verified 06/26/17 17:44 Remember ciprofloxacin Allergy Cannot Verified 06/26/17 17:44 Remember nitrofurantoin Allergy Cannot Verified 06/26/17 17:44 Remember NSAIDS (Non-Steroidal Allergy Bleeding Verified 06/26/17 17:44 Anti-Inflamma sumatriptan [From Imitrex] Allergy Hives Verified 06/26/17 17:44 sumatriptan succinate Allergy Hives Verified 06/26/17 17:44 [From Imitrex] tramadol AdvReac Bleeding Verified 06/26/17 17:44 Home Meds: Home Meds Insulin Detemir [Levemir Flexpen] 20 unit SQ BID 07/27/13 [History] Multivitamin [Multivitamins] 1 each PO DAILY #30 capsule 09/13/14 [Rx] Ferrous Sulfate [Iron] 325 mg PO DAILY #15 capsule.er 08/07/15 [Rx] Insulin Aspart [Novolog Flexpen] 15 unit SQ QID 12/20/15 [History] Ondansetron [Ondansetron ODT] 8 mg PO Q8H PRN 10/14/16 [History] Pantoprazole [ProTONIX] 40 mg PO DAILY 10/14/16 [History] atorvaSTATin [Lipitor] 40 mg PO DAILY 10/14/16 [History] buPROPion HCl [Wellbutrin Sr] 150 mg PO BID 10/14/16 [History] Gabapentin [Neurontin] 100 mg PO TID 11/04/16 [History] Cefpodoxime [Vantin] 100 mg PO BID 12/29/16 [History] Past Medical History HEENT History: Reports: Impaired Vision Cardiovascular History: Reports: Blood Clots/VTE/DVT, High Cholesterol, Hypertension Respiratory History: Reports: Asthma Gastrointestinal History: Reports: GERD, Hepatitis Genitourinary History: Reports: Diabetic Nephropathy 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: , 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) Other OB/BYN History: 4 c-sections Musculoskeletal History: Reports: Amputation Other Musculoskeletal History: bell amp Neurological History: Reports: Neuropathy, Diabetic, Neuropathy, Peripheral Psychiatric History: Reports: Addiction Endocrine/Metabolic History: Reports: Diabetes, Type II, IDDM Hematologic History: Reports: Iron Deficiency Immunologic History: Reports: None Oncologic (Cancer) History: Reports: None Dermatologic History: Reports: Cellulitis - Infectious Disease History Infectious Disease History: Reports: C-Difficile, Hepatitis C - Past Surgical History Female Surgical History: Reports: Section, Hysterectomy Neurological Surgical History: Reports: 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) Musculoskeletal Surgical History: Reports: Amputation, 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) Social & Family History - Family History Family Medical History: Noncontributory - Tobacco Use Smoking Status *Q: Former Smoker Years of Tobacco use: 29 Packs/Tins Daily: 1 Used Tobacco, but Quit: Yes Month Tobacco Last Used: December 2016 Second Hand Smoke Exposure: Yes - Caffeine Use Caffeine Use: Reports: Coffee - Alcohol Use Days Per Week of Alcohol Use: 0 - Recreational Drug Use Recreational Drug Use: No Drug Use in Last 12 Months: Yes Recreational Drug Type: Reports: Marijuana/Hashish Other Recreational Drug Type: last drug use was 4 or 5 days ago Recreational Drug Use Frequency: Weekly - Living Situation & Occupation Living situation: Reports: Single, with Family Occupation: Disabled Review of Systems - Review of Systems Review Of Systems: ROS reveals no pertinent complaints other than HPI. ED EXAM, GENERAL - Physical Exam Exam: See Below Exam Limited By: No Limitations General Appearance: Alert, WD/WN, Severe Distress, Thin Eye Exam: Bilateral Eye: EOMI, PERRL Ears: Normal External Exam Nose: Normal Inspection, Normal Mucosa, No Blood Throat/Mouth: Normal Inspection, Normal Lips, Normal Teeth, Normal Gums, Normal Oropharynx, Normal Voice, No Airway Compromise Head: Atraumatic, Normocephalic Neck: Normal Inspection, Supple, Non-Tender, Full Range of Motion Respiratory/Chest: No Respiratory Distress, Lungs Clear, Normal Breath Sounds, No Accessory Muscle Use, Chest Non-Tender Cardiovascular: Normal Peripheral Pulses GI/Abdominal: Normal Bowel Sounds, Soft, Non-Tender, No Organomegaly, No Distention, No Abnormal Bruit, No Mass (Female) Exam: Deferred Rectal (Female) Exam: Deferred Extremities: Other (The patient has bilateral below the knee amputations. The patient has a surgical site on her right hand, palmar aspect proximal to the 5th MCP that is open. There is no current drainage from the area, but the patient's 5th finger is erythematous.) Neurological: Alert, Oriented, CN II-XII Intact, Normal Cognition Psychiatric: Depressed Mood, Flat Affect Skin Exam: Warm, Dry, Wound/Incision (right, palmar aspect, proximal to the 5th mcp (surgical incision). The wound margins are white, but no current purulent drainage. The patient does have erythema of the 5th finger and has very limited mobility. ) Lymphatic: No Adenopathy Course - Vital Signs Last Recorded V/S: Last Vital Signs Temp 100.0 F 06/26/17 19:55 Pulse 95 06/26/17 19:55 Resp 18 06/26/17 19:55 BP 141/79 H 06/26/17 19:55 Pulse Ox 99 06/26/17 19:55 - Orders/Labs/Meds Orders: Active Orders 24 hr Category Date Time Status Glucose [Blood Glucose Check, Bedside] [RC] ONETIME Care 06/26/17 17:44 Active CULTURE BLOOD [BC] Stat Lab 06/26/17 18:03 Results CULTURE BLOOD [BC] Stat Lab 06/26/17 18:14 Received CULTURE URINE [RM] Stat Lab 06/26/17 19:56 Uncollected CULTURE WOUND [RM] Routine Lab 06/26/17 17:57 Received Blood Culture x2 Reflex Set [OM.PC] Stat Oth 06/26/17 17:42 Ordered Labs: Laboratory Tests 06/26/17 06/26/17 06/26/17 Range/Units 17:47 18:14 18:14 WBC 13.7 H (5.0-10.0) 10^3/uL RBC 3.69 L (4.2-5.4) 10^6/uL Hgb 10.7 L (12.0-16.0) g/dL Hct 32.1 L (37.0-47.0) % MCV 87.0 (80-100) fL MCH 29.0 (27.0-34.0) pg MCHC 33.3 (33.0-35.0) g/dL Plt Count 482 H D (150-450) 10^3/uL Neut % (Auto) 78.2 H (42.2-75.2) % Lymph % (Auto) 13.4 L (20.5-50.1) % [place] % (Auto) 6.9 (2-8) % Eos % (Auto) 1.4 (1.0-3.0) % Baso % (Auto) 0.1 (0.0-1.0) % Sodium 127 L (135-145) mmol/L Potassium 3.6 (3.6-5.0) mmol/L Chloride 105 (101-111) mmol/L Carbon Dioxide 16.0 L (21.0-31.0) mmol/L Anion Gap 9.6 BUN 25 H (7-18) mg/dL Creatinine 1.9 H (0.6-1.3) mg/dL Est Cr Clr Drug Dosing TNP Estimated GFR (MDRD) 28 BUN/Creatinine Ratio 13.15 Glucose 838 H* (74-105) mg/dL POC Glucose > 500 H* (70-105) mg/dl Lactic Acid (0.5-2.2) mmol/L Calcium 7.3 L (8.4-10.2) mg/dl Magnesium 1.6 L (1.8-2.5) mg/dL Total Bilirubin 0.2 (0.2-1.0) mg/dL AST 14 (10-42) IU/L ALT 11 (10-60) IU/L Alkaline Phosphatase 87 (42-121) IU/L Total Protein 6.4 L (6.7-8.2) g/dl Albumin 1.7 L (3.2-5.5) g/dl Globulin 4.7 Albumin/Globulin Ratio 0.36 Urine Color (YELLOW) Urine Appearance (CLEAR) Urine pH (5.0-9.0) Ur Specific [place] (1.005-1.030) Urine Protein (NEGATIVE) Urine Glucose (UA) (NEGATIVE) Urine Ketones (NEGATIVE) Urine Occult Blood (NEGATIVE) Urine Nitrite (NEGATIVE) Urine Bilirubin (NEGATIVE) Urine Urobilinogen (0.2-1.0) mg/dL Ur Leukocyte Esterase (NEGATIVE) Urine RBC /HPF Urine WBC (0-5/HPF) /HPF Ur Epithelial Cells /HPF Urine Bacteria (0-FEW/HPF) /HPF Urine Mucus /LPF Urine Opiates Screen (NEGATIVE) Ur Oxycodone Screen (NEGATIVE) Urine Methadone Screen (NEGATIVE) Ur Barbiturates Screen (NEGATIVE) U Tricyclic Antidepress (NEGATIVE) Ur Phencyclidine Scrn (NEGATIVE) Ur Amphetamine Screen (NEGATIVE) U Methamphetamines Scrn (NEGATIVE) Urine MDMA Screen (NEGATIVE) U Benzodiazepines Scrn (NEGATIVE) Urine Cocaine Screen (NEGATIVE) U Marijuana (THC) Screen (NEGATIVE) Ethyl Alcohol < 5 mg/dL Ketones Negative 06/26/17 06/26/17 06/26/17 Range/Units 18:14 18:17 18:17 WBC (5.0-10.0) 10^3/uL RBC (4.2-5.4) 10^6/uL Hgb (12.0-16.0) g/dL Hct (37.0-47.0) % MCV (80-100) fL MCH (27.0-34.0) pg MCHC (33.0-35.0) g/dL Plt Count (150-450) 10^3/uL Neut % (Auto) (42.2-75.2) % Lymph % (Auto) (20.5-50.1) % [place] % (Auto) (2-8) % Eos % (Auto) (1.0-3.0) % Baso % (Auto) (0.0-1.0) % Sodium (135-145) mmol/L Potassium (3.6-5.0) mmol/L Chloride (101-111) mmol/L Carbon Dioxide (21.0-31.0) mmol/L Anion Gap BUN (7-18) mg/dL Creatinine (0.6-1.3) mg/dL Est Cr Clr Drug Dosing Estimated GFR (MDRD) BUN/Creatinine Ratio Glucose (74-105) mg/dL POC Glucose (70-105) mg/dl Lactic Acid 1.5 (0.5-2.2) mmol/L Calcium (8.4-10.2) mg/dl Magnesium (1.8-2.5) mg/dL Total Bilirubin (0.2-1.0) mg/dL AST (10-42) IU/L ALT (10-60) IU/L Alkaline Phosphatase (42-121) IU/L Total Protein (6.7-8.2) g/dl Albumin (3.2-5.5) g/dl Globulin Albumin/Globulin Ratio Urine Color Yellow (YELLOW) Urine Appearance Cloudy (CLEAR) Urine pH 6.0 (5.0-9.0) Ur Specific [place] 1.015 (1.005-1.030) Urine Protein >=300 H (NEGATIVE) Urine Glucose (UA) 500 H (NEGATIVE) Urine Ketones Negative (NEGATIVE) Urine Occult Blood Small H (NEGATIVE) Urine Nitrite Positive H (NEGATIVE) Urine Bilirubin Negative (NEGATIVE) Urine Urobilinogen 0.2 (0.2-1.0) mg/dL Ur Leukocyte Esterase Small H (NEGATIVE) Urine RBC 5-10 H /HPF Urine WBC Packed H (0-5/HPF) /HPF Ur Epithelial Cells Few /HPF Urine Bacteria Many H (0-FEW/HPF) /HPF Urine Mucus Moderate H /LPF Urine Opiates Screen Negative (NEGATIVE) Ur Oxycodone Screen Negative (NEGATIVE) Urine Methadone Screen Negative (NEGATIVE) Ur Barbiturates Screen Negative (NEGATIVE) U Tricyclic Antidepress Negative (NEGATIVE) Ur Phencyclidine Scrn Negative (NEGATIVE) Ur Amphetamine Screen Negative (NEGATIVE) U Methamphetamines Scrn Positive H (NEGATIVE) Urine MDMA Screen Negative (NEGATIVE) U Benzodiazepines Scrn Negative (NEGATIVE) Urine Cocaine Screen Negative (NEGATIVE) U Marijuana (THC) Screen Negative (NEGATIVE) Ethyl Alcohol mg/dL Ketones Meds: Medications Discontinued Medications Generic Name Dose Route Start Last Admin Trade Name Gloria PRN Reason Stop Dose Admin Acetaminophen 650 mg 06/26/17 19:55 06/26/17 20:04 Tylenol PO 06/26/17 19:56 650 mg NOW ONE Administration Sodium Chloride 1,000 mls @ 999 mls/hr 06/26/17 19:43 06/26/17 19:54 Normal Saline IV 06/26/17 20:43 999 mls/hr .BOLUS ONE Administration Insulin Human Regular 100 unit 100 mls @ 0 mls/hr 06/26/17 20:00 06/26/17 20: 03 / Sodium Chloride IV 0.17 units/kg/hr TITRATE BRANDIE 10 mls/hr Protocol Administration 0.1 UNITS/KG/HR Insulin Human Regular 10 unit 06/26/17 19:03 06/26/17 19:12 Humulin R SUBCUT 06/26/17 19:04 10 units ONETIME ONE Administration Protocol Departure - Departure Disposition: DC/Tfer to [facility] 02 Clinical Impression: Hyperglycemia, unspecified, Methamphetamine abuse, Cellulitis of hand, Hypernatremia, Hypocalcemia UTI (urinary tract infection) Qualifiers: Urinary tract infection type: site unspecified Hematuria presence: with hematuria Qualified Code(s): N39.0 - Urinary tract infection, site not specified - Discharge Information Forms: ED Department Discharge - My Orders Last 24 Hours: My Active Orders 06/26/17 19:56 CULTURE URINE [RM] Stat - Assessment/Plan Last 24 Hours: My Active Orders 06/26/17 19:56 CULTURE URINE [RM] Stat <Jessica Yan - Last Filed: 06/27/17 04:10> Departure - Departure Time of Disposition: 20:15 Condition: Poor
[2017-06-26 18:45] LABS: CHLORIDE,CL 105 mmol/L (101-111); SODIUM,NA 127 mmol/L (135-145)
[2017-06-26] MEDS ORDERED: Insulin Regular, Human 100 Units/ML 3 ML Vial SUBCUT ONE (19:03)
[2017-06-26] MEDS ORDERED: Sodium Chloride 0.9% 1,000 ML IV ONE (19:43)
[2017-06-26] MEDS ORDERED: Acetaminophen 325 MG Tab PO ONE (19:55)
[2017-06-26 19:56] VITALS: BP 141/79
== END 2017-06-26 20:12 ==
LOC: DL.ED 17:44
DX: L03.113 Cellulitis of right upper limb (principal); E11.65 Type 2 diabetes mellitus with hyperglycemia; E87.0 Hyperosmolality and hypernatremia; E83.52 Hypercalcemia; N39.0 Urinary tract infection, site not specified; F15.10 Other stimulant abuse, uncomplicated; I10 Essential (primary) hypertension; E78.00 Pure hypercholesterolemia, unspecified; E11.42 Type 2 diabetes mellitus with diabetic polyneuropathy; E11.21 Type 2 diabetes mellitus with diabetic nephropathy; Z87.891 Personal history of nicotine dependence; K21.9 Gastro-esophageal reflux disease without esophagitis; Z79.4 Long term (current) use of insulin; Z79.899 Other long term (current) drug therapy; Z88.1 Allergy status to other antibiotic agents; Z88.5 Allergy status to narcotic agent; Z88.8 Allergy status to other drugs, medicaments and biological substances
CPT/HCPCS: 36410; 36415; 71010; 80053; 80305; 81001; 82009; 82962; 83605; 83735; 85025; 87040; 87070; 87077; 87186; 87804; 96365; 96372; 96375; 99285; A9270; G0480; J1815; J7030; J7050

== ENCOUNTER 2017-07-13 18:44 | Inpatient (IN) | payer MEDICAID, SELFPAY ==
--- NOTE | 2017-07-13 19:06 | EDM.PDOC ---
ED HPI GENERAL MEDICAL PROBLEM - General Chief Complaint: Respiratory Problem Stated Complaint: COLD [id number] Time Seen by Provider: 07/13/17 19:04 Source of Information: Reports: Patient History Limitations: Reports: No Limitations - History of Present Illness INITIAL COMMENTS - FREE TEXT/NARRATIVE: 3 days h/o cough congestion diarrhoea no eating taking liquids but comes back out. feels chilly. - Related Data Allergies Allergy/AdvReac Type Severity Reaction Status Date / Time amoxicillin Allergy Cannot Verified 06/26/17 17:44 Remember cephalexin Allergy Cannot Verified 06/26/17 17:44 Remember ciprofloxacin Allergy Cannot Verified 06/26/17 17:44 Remember nitrofurantoin Allergy Cannot Verified 06/26/17 17:44 Remember NSAIDS (Non-Steroidal Allergy Bleeding Verified 06/26/17 17:44 Anti-Inflamma sumatriptan [From Imitrex] Allergy Hives Verified 06/26/17 17:44 sumatriptan succinate Allergy Hives Verified 06/26/17 17:44 [From Imitrex] tramadol AdvReac Bleeding Verified 06/26/17 17:44 Home Meds: Home Meds Insulin Detemir [Levemir Flexpen] 20 unit SQ BID 07/27/13 [History] Multivitamin [Multivitamins] 1 each PO DAILY #30 capsule 09/13/14 [Rx] Ferrous Sulfate [Iron] 325 mg PO DAILY #15 capsule.er 08/07/15 [Rx] Insulin Aspart [Novolog Flexpen] 15 unit SQ QID 12/20/15 [History] Ondansetron [Ondansetron ODT] 8 mg PO Q8H PRN 10/14/16 [History] Pantoprazole [ProTONIX] 40 mg PO DAILY 10/14/16 [History] atorvaSTATin [Lipitor] 40 mg PO DAILY 10/14/16 [History] buPROPion HCl [Wellbutrin Sr] 150 mg PO BID 10/14/16 [History] Gabapentin [Neurontin] 100 mg PO TID 11/04/16 [History] Cefpodoxime [Vantin] 100 mg PO BID 12/29/16 [History] Past Medical History HEENT History: Reports: Impaired Vision Cardiovascular History: Reports: Blood Clots/VTE/DVT, High Cholesterol, Hypertension Respiratory History: Reports: Asthma Gastrointestinal History: Reports: GERD, Hepatitis Other Gastrointestinal History: HEP C Genitourinary History: Reports: Diabetic Nephropathy 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: , 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) Other OB/BYN History: 4 c-sections Musculoskeletal History: Reports: Amputation Other Musculoskeletal History: bell amp Neurological History: Reports: Neuropathy, Diabetic, Neuropathy, Peripheral Psychiatric History: Reports: Addiction Endocrine/Metabolic History: Reports: Diabetes, Type II, IDDM Hematologic History: Reports: Iron Deficiency Immunologic History: Reports: None Oncologic (Cancer) History: Reports: None Dermatologic History: Reports: Cellulitis - Infectious Disease History Infectious Disease History: Reports: C-Difficile, Hepatitis C - Past Surgical History Female Surgical History: Reports: Section, Hysterectomy Neurological Surgical History: Reports: 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) Musculoskeletal Surgical History: Reports: Amputation, 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) Social & Family History - Family History Family Medical History: Noncontributory - Tobacco Use Smoking Status *Q: Former Smoker Years of Tobacco use: 29 Packs/Tins Daily: 1 Used Tobacco, but Quit: Yes Month Tobacco Last Used: December 2016 Second Hand Smoke Exposure: Yes - Caffeine Use Caffeine Use: Reports: Coffee - Alcohol Use Days Per Week of Alcohol Use: 0 - Recreational Drug Use Recreational Drug Use: No Drug Use in Last 12 Months: Yes Recreational Drug Type: Reports: Marijuana/Hashish Other Recreational Drug Type: last drug use was 4 or 5 days ago Recreational Drug Use Frequency: Weekly - Living Situation & Occupation Living situation: Reports: Single, with Family Occupation: Disabled ED ROS GENERAL - Review of Systems Review Of Systems: ROS reveals no pertinent complaints other than HPI. ED EXAM, GENERAL - Physical Exam Exam: See Below Exam Limited By: No Limitations General Appearance: Alert, WD/WN, Mild Distress, Moderate Distress, Other ( episodic cough spasm, distraught) Ears: Hearing Grossly Normal Throat/Mouth: Normal Voice, No Airway Compromise Head: Atraumatic Neck: Non-Tender, Full Range of Motion Respiratory/Chest: No Respiratory Distress, No Accessory Muscle Use, Decreased Breath Sounds, Rhonchi, Wheezing Cardiovascular: Regular Rate, Rhythm GI/Abdominal: Soft, Tender, Other (general discomfort). No: Distended, Guarding , Rigid, Rebound Neurological: Alert, Oriented, Normal Cognition, Normal Gait, No Motor/Sensory Deficits Psychiatric: Tearful Skin Exam: Warm, Dry, Normal Color Lymphatic: No Adenopathy Course - Vital Signs Last Recorded V/S: Last Vital Signs Temp 37.2 C 07/13/17 18:51 Pulse 91 07/13/17 18:51 Resp 16 07/13/17 18:51 BP 150/84 H 07/13/17 18:51 Pulse Ox 97 07/13/17 18:51 - Orders/Labs/Meds Orders: Active Orders 24 hr Category Date Time Status Blood Glucose Check, Bedside [RC] ONETIME Care 07/13/17 21:27 Active RT Aerosol Therapy [RC] ASDIRECTED Care 07/13/17 19:24 Active CULTURE BLOOD [BC] Routine Lab 07/13/17 19:10 Results CULTURE BLOOD [BC] Stat Lab 07/13/17 19:15 Received DRUG SCREEN URINE BIORAD [URCHEM] Stat Lab 07/13/17 20:13 Ordered UA W/MICROSCOPIC [URIN] Stat Lab 07/13/17 20:13 Ordered Labs: Laboratory Tests 07/13/17 07/13/17 07/13/17 Range/Units 19:15 19:15 19:15 WBC 20.1 H (5.0-10.0) 10^3/uL RBC 3.53 L (4.2-5.4) 10^6/uL Hgb 10.1 L (12.0-16.0) g/dL Hct 31.2 L (37.0-47.0) % MCV 88.4 (80-100) fL MCH 28.6 (27.0-34.0) pg MCHC 32.4 L (33.0-35.0) g/dL Plt Count 628 H D (150-450) 10^3/uL Neut % (Auto) 89.9 H (42.2-75.2) % Lymph % (Auto) 6.3 L (20.5-50.1) % [place] % (Auto) 3.7 (2-8) % Eos % (Auto) 0.1 L (1.0-3.0) % Baso % (Auto) 0.0 (0.0-1.0) % Add Manual Diff Yes Neutrophils % (Manual) 82 H (42-75) % Band Neutrophils % 11 % Lymphocytes % (Manual) 7 L (20-50) % Atypical Lymphs % 0 % Monocytes % (Manual) 0 L (2-8) % Eosinophils % (Manual) 0 L (1-3) % Basophils % (Manual) 0 Platelet Estimate Increased ABG pH (7.35-7.45) ABG pCO2 (35-45) mmHg ABG pO2 (70-100) mmHg ABG HCO3 (22-26) mmol/L ABG O2 Saturation (95-100) % ABG Base Excess ((-2)-(+3)) mmol/L Yann Test O2 Delivery Device Sodium 128 L (135-145) mmol/L Potassium 3.6 (3.6-5.0) mmol/L Chloride 102 (101-111) mmol/L Carbon Dioxide 18.0 L (21.0-31.0) mmol/L Anion Gap 11.6 BUN 16 (7-18) mg/dL Creatinine 1.5 H (0.6-1.3) mg/dL Est Cr Clr Drug Dosing 37.11 mL/min Estimated GFR (MDRD) 37 BUN/Creatinine Ratio 10.66 Glucose 719 H* (74-105) mg/dL POC Glucose (70-105) mg/dl Lactic Acid 2.6 H (0.5-2.2) mmol/L Calcium 7.2 L (8.4-10.2) mg/dl Total Bilirubin 0.3 (0.2-1.0) mg/dL AST 16 (10-42) IU/L ALT 7 L (10-60) IU/L Alkaline Phosphatase 123 H (42-121) IU/L Total Protein 6.0 L (6.7-8.2) g/dl Albumin 1.1 L (3.2-5.5) g/dl Globulin 4.9 Albumin/Globulin Ratio 0.22 07/13/17 07/13/17 Range/Units 20:45 21:31 WBC (5.0-10.0) 10^3/uL RBC (4.2-5.4) 10^6/uL Hgb (12.0-16.0) g/dL Hct (37.0-47.0) % MCV (80-100) fL MCH (27.0-34.0) pg MCHC (33.0-35.0) g/dL Plt Count (150-450) 10^3/uL Neut % (Auto) (42.2-75.2) % Lymph % (Auto) (20.5-50.1) % [place] % (Auto) (2-8) % Eos % (Auto) (1.0-3.0) % Baso % (Auto) (0.0-1.0) % Add Manual Diff Neutrophils % (Manual) (42-75) % Band Neutrophils % % Lymphocytes % (Manual) (20-50) % Atypical Lymphs % % Monocytes % (Manual) (2-8) % Eosinophils % (Manual) (1-3) % Basophils % (Manual) Platelet Estimate ABG pH 7.36 (7.35-7.45) ABG pCO2 31 L (35-45) mmHg ABG pO2 70 (70-100) mmHg ABG HCO3 16.8 L (22-26) mmol/L ABG O2 Saturation 95 (95-100) % ABG Base Excess -7 L ((-2)-(+3)) mmol/L Yann Test rb O2 Delivery Device Room air Sodium (135-145) mmol/L Potassium (3.6-5.0) mmol/L Chloride (101-111) mmol/L Carbon Dioxide (21.0-31.0) mmol/L Anion Gap BUN (7-18) mg/dL Creatinine (0.6-1.3) mg/dL Est Cr Clr Drug Dosing mL/min Estimated GFR (MDRD) BUN/Creatinine Ratio Glucose (74-105) mg/dL POC Glucose > 500 H* (70-105) mg/dl Lactic Acid (0.5-2.2) mmol/L Calcium (8.4-10.2) mg/dl Total Bilirubin (0.2-1.0) mg/dL AST (10-42) IU/L ALT (10-60) IU/L Alkaline Phosphatase (42-121) IU/L Total Protein (6.7-8.2) g/dl Albumin (3.2-5.5) g/dl Globulin Albumin/Globulin Ratio Meds: Medications Discontinued Medications Generic Name Dose Route Start Last Admin Trade Name Freq PRN Reason Stop Dose Admin Hydrocodone Bitart/Acetaminophen 1 tab 07/13/17 20:39 07/13/17 20:45 Amado 325-10 Mg PO 07/13/17 20:40 1 tab ONETIME ONE Administration Albuterol/Ipratropium 3 ml 07/13/17 19:24 07/13/17 19:29 Duoneb 3.0-0.5 Mg/3 Ml NEB 07/13/17 19:25 3 ml ONETIME ONE Administration Insulin Human Regular 5 unit 07/13/17 20:06 07/13/17 20:26 Humulin R IV 07/13/17 20:07 5 unit ONETIME ONE Administration Protocol Promethazine HCl/Codeine 5 ml 07/13/17 19:38 07/13/17 19:43 Phenergan With Codeine PO 07/13/17 19:39 5 ml ONETIME ONE Administration - Re-Assessments/Exams Free Text/Narrative Re-Assessment/Exam: 07/13/17 21:[address] Seth who kindly admitted pt Departure - Departure Time of Disposition: 21:42 Disposition: Admitted As Inpatient 65 Condition: Fair Clinical Impression: Hyperglycemia Pneumonia Qualifiers: Pneumonia type: due to unspecified organism Laterality: right Lung location: middle lobe of lung Qualified Code(s): J18.1 - Lobar pneumonia, unspecified organism - Discharge Information Forms: ED Department Discharge - My Orders Last 24 Hours: My Active Orders 07/13/17 19:10 CULTURE BLOOD [BC] Routine 07/13/17 19:15 CULTURE BLOOD [BC] Stat 07/13/17 19:24 RT Aerosol Therapy [RC] ASDIRECTED 07/13/17 20:13 DRUG SCREEN URINE BIORAD [URCHEM] Stat UA W/MICROSCOPIC [URIN] Stat 07/13/17 21:27 Blood Glucose Check, Bedside [] ONETIME - Assessment/Plan Last 24 Hours: My Active Orders 07/13/17 19:10 CULTURE BLOOD [BC] Routine 07/13/17 19:15 CULTURE BLOOD [BC] Stat 07/13/17 19:24 RT Aerosol Therapy [RC] ASDIRECTED 07/13/17 20:13 DRUG SCREEN URINE BIORAD [URCHEM] Stat UA W/MICROSCOPIC [URIN] Stat 07/13/17 21:27 Blood Glucose Check, Bedside [RC] ONETIME
[2017-07-13] MEDS ORDERED: Albuterol/Ipratropium 3.0-0.5 MG/3 ML Neb Soln NEB ONE (19:24)
[2017-07-13] MEDS ORDERED: Codeine/Promethazine 10-6.25 MG/5 ML Syrup 5 ML UD Cup PO ONE (19:38)
[2017-07-13 20:04] LABS: ANION GAP 11.6
[2017-07-13] MEDS ORDERED: Insulin Regular, Human 100 Units/ML 3 ML Vial IV ONE (20:06)
[2017-07-13] MEDS ORDERED: Acetaminophen/HYDROcodone 325-10 MG Tab PO ONE (20:39)
[2017-07-13 20:52] LABS: BASE EXCESS ARTERIAL -7 mmol/L ((-2)-(+3)); BICARBONATE,ARTERIAL 16.8 mmol/L (22-26); O2 DELIVERY DEVICE ROOM AIR; O2 SATURATION ARTERIAL 95 % (95-100); PCO2 ARTERIAL 31 mmHg (35-45); PO2 ARTERIAL 70 mmHg (70-100)
[2017-07-13 20:54] LABS: ALLEN TEST rb
[2017-07-13] MEDS ORDERED: Bisacodyl 10 MG Supp RECTAL PRN (23:14)
[2017-07-13] MEDS ORDERED: Insulin Detemir 100 Units/ML 3 ML Pen SUBCUT SCH ×2 (23:15→23:41)
[2017-07-13] MEDS ORDERED: Sodium Chloride 0.9% with KCl 1,000 ML IV SCH (23:45)
[2017-07-14] MEDS ORDERED: Meropenem 500 MG in Sodium Chloride 0.9% 100 ML IV ONE ×2
[2017-07-14] MEDS: Acetaminophen 325 MG Tab PO PRN ×2 (00:29→17:32)
[2017-07-14] MEDS: Benzonatate 100 MG Cap PO SCH ×3 (00:29→21:15)
[2017-07-14] MEDS ORDERED: Codeine/Promethazine 10-6.25 MG/5 ML Syrup 5 ML UD Cup PO SCH (02:00)
[2017-07-14] MEDS: Codeine/Promethazine 10-6.25 MG/5 ML Syrup 5 ML UD Cup PO SCH ×6 (04:10→23:58)
[2017-07-14] MEDS ORDERED: Meropenem 500 MG in Sodium Chloride 0.9% 100 ML IV SCH (06:00)
[2017-07-14] MEDS: Pantoprazole 40 MG Tab.CR PO SCH (06:20)
[2017-07-14 07:25] LABS: ANION GAP 10.7
[2017-07-14] MEDS: Albuterol/Ipratropium 3.0-0.5 MG/3 ML Neb Soln NEB SCH ×3 (07:33→21:13)
[2017-07-14] MEDS ORDERED: Insulin Aspart 100 Units/ML 3 ML Pen SUBCUT SCH (09:00)
[2017-07-14] MEDS ORDERED: Enoxaparin 30 MG/0.3 ML Syringe SUBCUT SCH (09:00)
[2017-07-14] MEDS ORDERED: Insulin Detemir 100 Units/ML 3 ML Pen SUBCUT SCH ×2 (09:00→21:00)
[2017-07-14] MEDS: Insulin Aspart 100 Units/ML 3 ML Pen SUBCUT SCH ×4 (09:12→21:16)
[2017-07-14] MEDS: Gabapentin 100 MG Cap PO SCH ×3 (09:12→21:15)
[2017-07-14] MEDS: buPROPion 150 MG Tab.SR PO SCH ×2 (09:12→21:15)
[2017-07-14] MEDS ORDERED: Meropenem 500 MG SDV ONE (10:00)
[2017-07-14] MEDS: Meropenem 500 MG in Sodium Chloride 0.9% 100 ML IV SCH ×2 (10:05→22:03)
[2017-07-14] MEDS: Vancomycin 50 MG/ML Oral Solution Bottle Kit PO SCH ×2 (17:33→21:21)
[2017-07-15] MEDS: Acetaminophen 325 MG Tab PO PRN ×3 (04:08→17:34)
[2017-07-15] MEDS: Codeine/Promethazine 10-6.25 MG/5 ML Syrup 5 ML UD Cup PO SCH ×5 (04:09→20:22)
[2017-07-15] MEDS: Pantoprazole 40 MG Tab.CR PO SCH (05:53)
[2017-07-15] MEDS ORDERED: Sodium Chloride 0.9% 1,000 ML IV SCH (06:00)
[2017-07-15] MEDS: Albuterol/Ipratropium 3.0-0.5 MG/3 ML Neb Soln NEB SCH ×3 (07:30→22:19)
[2017-07-15] MEDS: Insulin Detemir 100 Units/ML 3 ML Pen SUBCUT SCH ×2 (08:58→22:20)
[2017-07-15] MEDS: Insulin Aspart 100 Units/ML 3 ML Pen SUBCUT SCH ×4 (08:59→22:22)
[2017-07-15] MEDS: Gabapentin 100 MG Cap PO SCH ×3 (08:59→22:24)
[2017-07-15] MEDS: Enoxaparin 40 MG/0.4 ML Syringe SUBCUT SCH (08:59)
[2017-07-15] MEDS: buPROPion 150 MG Tab.SR PO SCH ×2 (09:01→22:24)
[2017-07-15] MEDS: Benzonatate 100 MG Cap PO SCH ×2 (09:01→22:24)
[2017-07-15] MEDS: Vancomycin 50 MG/ML Oral Solution Bottle Kit PO SCH ×4 (09:48→22:21)
[2017-07-15] MEDS: Meropenem 500 MG in Sodium Chloride 0.9% 100 ML IV SCH ×2 (10:20→22:24)
[2017-07-15] MEDS: traMADol 50 MG Tab PO PRN (22:25)
[2017-07-16] MEDS: Codeine/Promethazine 10-6.25 MG/5 ML Syrup 5 ML UD Cup PO SCH ×3 (01:02→08:26)
[2017-07-16] MEDS ORDERED: 50% Dextrose in Water 50 ML Syringe ONE (01:15)
[2017-07-16] MEDS: Pantoprazole 40 MG Tab.CR PO SCH (06:27)
[2017-07-16] MEDS: Acetaminophen 325 MG Tab PO PRN (06:31)
[2017-07-16] MEDS: Albuterol/Ipratropium 3.0-0.5 MG/3 ML Neb Soln NEB SCH (07:25)
[2017-07-16 07:54] VITALS: BP 166/83
[2017-07-16] MEDS: Gabapentin 100 MG Cap PO SCH (08:25)
[2017-07-16] MEDS: Insulin Aspart 100 Units/ML 3 ML Pen SUBCUT SCH (08:26)
[2017-07-16] MEDS: Benzonatate 100 MG Cap PO SCH (08:26)
[2017-07-16] MEDS: buPROPion 150 MG Tab.SR PO SCH (08:26)
[2017-07-16] MEDS: Vancomycin 50 MG/ML Oral Solution Bottle Kit PO SCH (08:26)
[2017-07-16] MEDS: Insulin Detemir 100 Units/ML 3 ML Pen SUBCUT SCH (08:27)
[2017-07-16] MEDS: Enoxaparin 40 MG/0.4 ML Syringe SUBCUT SCH (08:28)
[2017-07-16] MEDS ORDERED: oxyCODONE 5 MG Tab PO ONE (09:21)
[2017-07-16] MEDS: traMADol 50 MG Tab PO PRN (09:28)
[2017-07-16] MEDS: Meropenem 500 MG in Sodium Chloride 0.9% 100 ML IV SCH (10:02)
--- NOTE | 2017-07-16 12:21 | DISCH ---
DISCHARGE/TRANSFER SUMMARY DISCHARGE DIAGNOSES: 1. Right middle lobe pneumonia, 07/13/2017. 2. Ongoing open wound on the palm of the left hand with apparent gangrenous band between the proximal interphalangeal joint and the distal interphalangeal joint of the left 5th finger. 3. Contractions of the 4th and 5th left fingers, secondary to tenosynovitis due to above. 4. Clostridium difficile infection, untreated until this readmission due to noncompliance. 5. Urinary tract infection with possible enterococcus species, final identification and sensitivity pending. 6. Positive blood culture, 1/2 bottles, 07/13/2017. Gram-positive cocci in pairs and chains, possibly an alpha hemolytic strep (Strep viridans?) Final identification and sensitivity to follow. 7. Profound hypoglycemia overnight on 07/16-07/17 with blood sugars going down to 21 to 40 (Sepsis?). 8. Extensive past medical history as outlined in multiple previous charts and admissions. 9. Extensive history of the wound of the right hand: has been seen by Dr. Caroline Rodriguez, Inf Dis. Dr. Rodriguez has been informed of this transfer. 10.Significant weight loss, weight now 99 pounds. HISTORY OF PRESENT ILLNESS: Yamile Jorge is a 47-year-old female with multiple previous admissions. She had been admitted to [facility] in [place] from 06/26 to 07/04, at which time she was discharged. She presented to the emergency room in [place] on 07/13, complaining of cough, congestion, and diarrhea. She had not been able to eat, but had been taking liquids. In the Emergency Department, she was found to have a white count of 20,000. Blood sugar was 719. Lactic acid was 2.6. A single-view chest x-ray showed a small right middle lobe pneumonia. She was admitted for further management. Other significant issues during this admission include the fact that she had an open wound of the palm of the left hand. The treatment of this wound goes back to 05/2017. She was at [facility]. This wound was debrided there on 06/07/17 and was debrided again in [place] by Dr. Ibarra on 06/28/17. This wound has grown multiple organisms. Please see Dr. Rodriguez's note of 07/02/2017, and the discharge summary by Dr. Anderson of 07/04, outlining the history of the hand infection debridement and treatment. During the June [facility] admission, she was also found to be C. difficile positive on 07/01/2017. At the time of discharge, she was supposed to continue on oral vancomycin. Yamile never filled that prescription and treatment was not started until she was an inpatient in [place]. She continues to have multiple stools during the day. Two sets of blood cultures and urine culture were done during this admission. Three of the 4 bottles showed no growth after 2 days. One aerobic bottle was positive for gram-positive cocci in pairs and chains. Workup today prior to transfer shows that this is probably an alpha hemolytic strep. It is not a strep pneumo and it resembles a strep viridans. Final ID and sensitivity are pending. A urine culture collected on 07/15 is positive for what appears to be an enterococcus species. Final ID and sensitivity are pending. Sed rate was elevated at 109 and CRP was elevated at 6.6. HOSPITAL COURSE: Yamile was admitted as an acute inpatient. She initially was started on meropenem and was receiving 500 mg IV every 8 hours. We also started her on vancomycin because of previous history of MRSA. She is receiving 750 mg every 24 hours. Oral vancomycin was started and she is receiving vancomycin 500 mg orally 4 times a day. Enoxaparin was used for VTE prophylaxis. The open wound on the palmar surface of the left hand was thoroughly scrubbed and cleaned after admission. Of note is the fact that the 4th and 5th fingers now appear to be contracted, most likely secondary to the tenosynovitis that developed. There is a band between the 5th PIP and the DIP that appears to be dry gangrene. The area is black and solid to touch. Overnight on 07/15-05/16, Yamile developed profound hypoglycemia. Sugars were checked and they were 21 and later 40. She had been eating and drinking. This raises question of other possible issues such as sepsis. She was given 1 amp of D50 and something to eat. Fluids were changed to D5 half-normal saline. This morning her blood sugar was 95 at 6 a.m. and prior to transfer was under 130. We opted to transfer her on D5 half to avoid hypoglycemia during the transfer. Review of her clinical data shows that she is drinking adequate fluids. She is voiding. She continues to have multiple loose stools. She is eating and tolerating 100% of her meals. Vital signs have been stable although this morning her systolic was somewhat elevated. She has remained afebrile throughout the admission with a T-max of 99.2. PHYSICAL EXAMINATION: General: She appears to be in poor condition. She has clearly lost a lot of weight. Her skin is sallow. Her hair has thinned out. She sleeps much of the time, but when she is awake, she is alert and oriented. Vital Signs: Blood pressure this morning was 166/83, pulse 92, respiratory rate 20, oxygen saturation 98% on room air. She is afebrile. HEENT: Unremarkable. ENT was clear. Chest: Showed clear but diminished bilateral breath sounds. Heart: Showed regular rate and rhythm. Abdomen: Benign. Extremities: Showed bilateral BKA. The left upper extremity is significant for the open area that runs from the wrist to the base of the 5th finger. The 4th and 5th fingers are contracted in flexion. On the palmar surface of the left 5th finger, there is a band of skin that is black and hardened between the DIP and the PIP. Another major issue we have encountered is poor venous access. Yamile has used IV drugs for many years and her venous access is extremely limited. The first IV was placed on the flexor surface of the wrist. We lost that access yesterday and a new line was placed on the extensor surface of the left arm. Last night, we used that access for D50 when her sugars were low and we feel that we will most likely lose this IV access shortly. She will probably need a PICC line at some point, but in the past, her PICC line has developed thrombus at the site and she has been treated for DVTs. Overall, we feel a transfer is indicated as we cannot meet Yamile's multiple needs. She was due to see Dr. Rodriguez and Dr. Ibarra tomorrow by telemedicine here in [place], but at this point, we feel she needs hands-on services at a higher level of care. Her overall prognosis is quite poor and her functional status is quite poor as well. Serum albumin was noted to be only 1.1. Condition at time of transfer is hemodynamically stable. Prognosis remains poor and guarded. Code status during this admission was full code. [facility] /[id number] ANA MARIA
--- NOTE | 2017-07-25 05:21 | PN ---
DATE: 07/15/2017 HISTORY OF PRESENT ILLNESS: Yamile is a 47-year-old female who was admitted for treatment of right middle lobe pneumonia as well as treatment of an ongoing open wound of the left palm. She has had multiple incision and drainages done since May. Cultures have grown multiple organisms, and she has been on many different antibiotics. She subsequently developed C. diff. This was from stool collected in [place] on 07/01. At the time of her discharge from [facility] on 07/04, she was supposed to have started oral vancomycin. This was never started, and we now have her back on oral vancomycin 500 mg p.o. 4 times a day. A repeat lab work this morning shows white count down to 10,000. Manual differential shows 64% neutrophils, 22% lymphocytes. Sed rate was elevated at 109 mm/hour and CRP is elevated at 6.6. Creatinine was 1.7 this morning with a GFR of 32. We did finally obtain a urine, which shows a light yellow turbid urine with a specific gravity of 1.015. Microscopic exam showed 5 to 10 rbc's and packed wbc's with moderate bacteria. Two sets of blood cultures were drawn at the time of admission. Overnight, the 1 aerobic bottle is positive. Final ID and sensitivity are pending. (Final culture showed Enterococcus avium.) Her urine culture is also positive for a possible Enterococcus. Final ID and sensitivity also pending. (Final culture showed an Enterococcus faecium. Urine culture also went on to show that the Enterococcus faecium was vancomycin resistant as well). Review of her clinical data showed stable vital signs. Blood pressure has improved at 147/71, pulse 76, respiratory rate 20, oxygen saturation 100% on room air, temperature 99.6. She is taking in fluids. She is voiding. She still continues to have loose stools and is on contact precautions. She is tolerating 100% of her meals. Review of her medications shows she continues to receive meropenem 500 mg IV every 8 hours, vancomycin 750 mg IV every 24 hours, and oral vancomycin 500 mg 4 times a day. She has occasionally complained of pain, and she has received p.r.n. tramadol. PHYSICAL EXAMINATION: General: She continues to look ill, but is awake and alert and participates in the visit. Vital Signs: As above. HEENT: Unremarkable. Sclerae are nonicteric. Mucous membranes are moist. Chest: Showed clear but diminished bilateral breath sounds. Heart: Showed regular rate and rhythm. Abdomen: Benign. Extremities: Showed bilateral BKAs and wound continues to have an open wound on the palm of the left hand with contractures of the 4th and 5th left fingers. The case was discussed with Dr. Rodriguez of Infectious Disease. We feel that given the multitude of problems as well as the now positive blood and urine cultures that Yamile should be transferred back to [place] to be seen by Infectious Disease as well as the hand surgeon. We arranged for transfer to take place tomorrow morning. Later in the day, she developed profound hypoglycemia with blood sugars ranging from 38 to 41. These were treated. Blood sugars went back up, but for the most part since then has stayed on the lower side of 140 or less. This causes some concern for possible sepsis, and with the positive blood and urine cultures, this certainly is a consideration. IMPRESSION: 1. Right middle lobe pneumonia. Treatment continues with meropenem. 2. Open wound of the palm of the left hand. She is on meropenem as well as IV vancomycin. 3. Clostridium difficile infection. She has been restarted on oral vancomycin. 4. We now have both positive blood and urine cultures with final ID pending, but they appear to be possible enterococcus species. PLAN: Continue present management with plan for transfer to [place] in the morning. [facility] /[id number]
--- NOTE | 2017-07-25 05:30 | PN ---
DATE: 07/14/2017 INTERVAL HISTORY: Yamile is a 47-year-old female who was admitted yesterday with findings of right middle lobe pneumonia as well as an open wound of the left hand, which has been going on since May and has had multiple incision and drainage procedures performed. See admission H and P for multiple positive cultures and antibiotics previously used. When Yamile was admitted yesterday, she was started on meropenem and vancomycin to cover both the pneumonia and ongoing infection of the hand. Review of her clinical data overnight shows that she has been afebrile with a max temperature of 99.2 this morning. Vital signs have been relatively stable, although blood pressure this morning is 94/60 with pulse of 78. She has been drinking fluids, and she is voiding. She has tolerated her diet this morning. LABORATORY DATA: A repeat lab work this morning include a CBC, white count is down to 17,000 and hemoglobin and hematocrit of 9.4 and 28.5. Sodium has improved to 134, bicarb has come up to 20.0, and BUN and creatinine are 15 and 1.6 with a GFR of 34. Blood sugars have come down with the use of hydration and subcutaneous insulin, and this morning blood sugars were 302 and 309. Lactic acid is normal this morning at 1.3. Two sets of blood cultures were drawn on admission, and urinalysis and urine culture are pending. PHYSICAL EXAMINATION: General: She is lying in bed. She is sleeping, but is easily awake and participates in the visit. Vital Signs: Blood pressure 94/60, pulse 78, respiratory rate 20, oxygen saturation 98% on room air, and temperature 99.2. HEENT: Unremarkable. ENT was clear. Chest: Showed clear, but diminished bilateral breath sounds. Heart: Showed regular rate and rhythm. Abdomen: Benign. Extremities: Showed bilateral BKAs without significant edema. Examination of the left hand shows the open wound across the palmar surface on the ulnar aspect. We cleaned the wound out well this morning. We scrubbed it with a chlorhexidine solution rinsing it well. The wound was then covered with a dressing. PLAN: For now, we will continue the present management. She is receiving meropenem and vancomycin. We are waiting results of blood cultures. We also have urinalysis pending, but this has not been collected yet. Repeat lab work was ordered for tomorrow morning including white count with differential, creatinine, and GFR. We will continue to monitor the blood sugar. We have also ordered sedimentation rate and CRP, and we are still waiting for urine sample. No other changes are made in her management. Depending on her course over the next day, we will contact Infectious Disease. Dr. Rodriguez has been following Yamile while in the hospital for the hand infection. She also is C. diff positive, and we have also started her back on oral vancomycin 500 mg p.o. 4 times a day. The IV vancomycin, we will continue for the positive hand wound cultures. No other changes made today. [facility] /[id number]
--- NOTE | 2017-07-25 07:20 | HP ---
REASON FOR ADMISSION: Right middle lobe pneumonia. HISTORY OF PRESENT ILLNESS: Yamile Jorge is a 47-year-old female with multiple previous admissions, both here and in [place]. She presented to the Emergency Department on 07/13 complaining of cough, congestion, and diarrhea. She had not been able to the eat but had been taking fluids. In the emergency room, she was found to have white count of 20,000. Blood sugar was 719. Lactic acid was 2.6. A single-view chest x-ray showed a small right middle lobe pneumonia, and she was admitted for further management. PAST MEDICAL HISTORY: Multiple medical comorbidities from recent admissions. She was admitted in [place] from 06/26/2017 to 07/04/2017. She had presented with cellulitis and abscess of the left hand. This had also been seen in [place] in May, and she has undergone several surgical debridements of the wound. Cultures have been variously positive for MSSA, Enterobacter species, lactobacillus, and group B strep. She has been on multiple antibiotics including Zosyn, vancomycin, ertapenem, and Levaquin on discharge. She was readmitted in June to [facility] for tenosynovitis of the left 5th finger and underwent incision and drainage once again on 06/28 and 06/30. Those cultures grew enterococcus, a strep species, yeast species, and MSSA. The cultures from the grew enterococcus, strep species, yeast species, and MRSA. Urine cultures were positive for Klebsiella. She also was C. diff positive on 07/01 and she was discharged on oral vancomycin for a 2-week course, but she has not started that medication. It is unclear if she has done any treatment of the wound at home since she was discharged. OTHER PAST MEDICAL HISTORY: Includes uncontrolled type 2 diabetes with multiple complications including bilateral foot ulcers with osteomyelitis leading to bilateral BKA. 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 Has chronic kidney disease, hypertension, hepatitis C from IV drug abuse, adrenal insufficiency, polysubstance abuse, electrolyte abnormalities. 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 PAST SURGICAL HISTORY: Bilateral BKAs which followed multiple surgeries to the feet in an attempt to save the legs (right leg 2009, left leg 2012). Clipping of cerebral aneurysm, hysterectomy in 2013. FAMILY HISTORY: Coronary artery disease in her mother. Diabetes in her mother, father, and brother. SOCIAL HISTORY: She states she smoked cigarettes in the past, stopped smoking about 1 year ago. Has less than a [id number]-[id number] history of smoking. She reports polysubstance abuse including marijuana and IV drug use and has injected narcotics and abused Wellbutrin as well. She does not drink alcohol. REVIEW OF SYSTEMS: Presented with cough, congestion, diarrhea. She is known to be C. diff positive. It is unclear if she has been doing any management of her blood sugars, but she presented with a blood sugar of 719. No recent falls or injuries. She continues to have an open wound on the palm of the left hand from the cellulitis and subsequent multiple I and Ds. She now has contracture of the 4th and 5th fingers due to the tenosynovitis that she had. MEDICATIONS: 1. Levemir insulin 20 units twice a day. 2. NovoLog 15 units q.i.d. 3. Gabapentin 100 mg t.i.d. 4. Ferrous sulfate 325 daily. 5. Atorvastatin 40 mg daily. 6. Pantoprazole 40 mg daily. 7. Ondansetron 8 mg p.o. q.8 hours p.r.n. 8. Multivitamin daily. 9. Wellbutrin 150 mg b.i.d. ALLERGIES: She claims multiple allergies or intolerances: Nitrofurantoin, amoxicillin, cephalexin, ciprofloxacin, NSAIDs, Toradol, aspirin, fentanyl, ibuprofen, Imitrex, Beta vulgaris. PHYSICAL EXAMINATION: General: She looks quite ill. She has lost a large amount of weight since I personally had last seen her, and weight was down to 99 pounds. She is in poor condition. Her skin was sallow. Her hair was thinned out. She appeared disheveled, she was sleeping, but when awake, she was alert and oriented. Vital Signs: Blood pressure 143/73 on the left, 146/69 on the right; pulse 99; respiratory rate 18; oxygen saturation 99% on room air; temperature 99; height 5 feet 8 inches; weight 99 pounds 9.6 ounces. HEENT: Unremarkable. ENT was clear. Sclerae were nonicteric. No adenopathy. No JVDs or bruits. Chest: Showed clear but diminished bilateral breath sounds. Heart: Showed regular rate and rhythm. Abdomen: Soft and benign. Extremities: Showed bilateral BKAs. Left upper extremity is significant for an open area that runs from the wrist to the base of the 5th finger. The 4th and 5th fingers were contracted in flexion. On the palmar surface of the left 5th finger, there was a band of skin that is black and hardened between the DIP and the PIP. Examination of her arms showed extensive scarring in both antecubital fossae due to IV drug abuse. Neurological: There were no gross motor or sensory deficits. LABORATORY DATA: CBC showed a white count of 20,000 with a left shift. Platelets were elevated at 628,000. Hemoglobin and hematocrit 10 and 31. Sodium 128, potassium 3.6, bicarb was diminished at 18.0. BUN and creatinine 16 and 1.5 with a GFR of 37. Admission blood sugar was 719. Lactic acid was 2.6, albumin is 1.1. Serum ketones were negative. An ABG was performed on room air, pH was 7.36, pCO2 of 31, pO2 of 70, oxygen saturation 95%. Single-view chest x-ray was performed which showed a small right middle lobe pneumonia, otherwise unremarkable. IMPRESSION: A 47-year-old female with extensive and complicated past medical history as above, now presents with x-ray evidence of a right middle lobe pneumonia. Her left hand remains with an open area from previous I and Ds with evidence of contractures and tenosynovitis as well as an area that appears to be dry gangrene. PLAN: Yamile was admitted as an acute inpatient. 1. For the right middle lobe pneumonia and the fact that she still has an open wound on the hand, she was started on meropenem 500 mg IV every 8 hours. We later added vancomycin 750 mg every 24 hours to that regimen. 2. Her usual medications were continued. 3. For the elevated blood sugar, we avoided putting her on IV insulin as we felt she probably just needed to be placed back on her medications. She is on IV fluids, and we will follow the blood sugars on a regular basis. Her 1st blood sugar following admission went down to 461 following the administration of 5 units of IV regular insulin in the ER. 4. Enoxaparin was used for VTE prophylaxis. 5. Repeat lab work was ordered for tomorrow morning including a repeat CBC, BMP, and lactic acid. CODE STATUS: Full code. [facility] /[id number]
== END 2017-07-16 09:30 | DRG 193 ==
LOC: DL.ED 18:44 → DL.MS 21:48 → UNDOADMIN 21:48 → DL.MS 23:14
PROVIDERS: ADMIT Internal Medicine; ATTEND Internal Medicine
DX: J18.9 Pneumonia, unspecified organism (principal); A41.9 Sepsis, unspecified organism; N39.0 Urinary tract infection, site not specified; E11.52 Type 2 diabetes mellitus with diabetic peripheral angiopathy with gangrene; I96 Gangrene, not elsewhere classified; E11.65 Type 2 diabetes mellitus with hyperglycemia; E11.42 Type 2 diabetes mellitus with diabetic polyneuropathy; Z79.4 Long term (current) use of insulin; Z86.718 Personal history of other venous thrombosis and embolism; I10 Essential (primary) hypertension; E78.00 Pure hypercholesterolemia, unspecified; K21.9 Gastro-esophageal reflux disease without esophagitis; Z86.19 Personal history of other infectious and parasitic diseases; E61.1 Iron deficiency; Z87.891 Personal history of nicotine dependence; S61.402D Unspecified open wound of left hand, subsequent encounter; M65.9 Synovitis and tenosynovitis, unspecified; M20.092 Other deformity of left finger(s); B96.89 Other specified bacterial agents as the cause of diseases classified elsewhere; B96.20 Unspecified Escherichia coli [E. coli] as the cause of diseases classified elsewhere; E11.649 Type 2 diabetes mellitus with hypoglycemia without coma; R63.4 Abnormal weight loss; R70.0 Elevated erythrocyte sedimentation rate; Z86.14 Personal history of Methicillin resistant Staphylococcus aureus infection; F19.21 Other psychoactive substance dependence, in remission; Z88.8 Allergy status to other drugs, medicaments and biological substances; Z79.899 Other long term (current) drug therapy; Z91.19 Patient's noncompliance with other medical treatment and regimen
CPT/HCPCS: 36415; 36600; 71010; 80053; 82009; 82803; 82962 ×2; 83605; 85025; 87040 ×2; 99284; A9270 ×2; J1815; 80048; 81001; 82565; 85004; 85651; 86140; 87077; 87086; 87088; 87186; 94010; 94640; 94667; 96374; J1650; J2185; J3370; J3480; J7030; J7050; J7060

== ENCOUNTER 2017-12-06 00:56 | Emergency (ER) | payer MEDICAID, OTHER ==
[2017-12-06 01:04] VITALS: BP 169/93
[2017-12-06 04:06] LABS: CHLORIDE,CL 105 mmol/L (101-111); SODIUM,NA 128 mmol/L (135-145)
[2017-12-06] MEDS ORDERED: Insulin Regular, Human 100 Units/ML 3 ML Vial SUBCUT ONE ×2 (04:18→05:53)
[2017-12-06] MEDS ORDERED: Acetaminophen/oxyCODONE 325-5 MG Tab PO ONE (04:19)
[2017-12-06] MEDS ORDERED: Clindamycin HCl 150 MG Cap PO ONE (04:38)
[2017-12-06] MEDS ORDERED: Insulin Regular, Human 100 Units/ML 3 ML Vial IV ONE (05:50)
--- NOTE | 2017-12-06 05:56 | EDM.PDOC ---
ED HPI GENERAL MEDICAL PROBLEM - General Chief Complaint: Wound Recheck Stated Complaint: IN BY AMBULANCE-FINGER INFECTION Time Seen by Provider: 12/06/17 01:00 Source of Information: Reports: Patient, EMS History Limitations: Reports: No Limitations - History of Present Illness INITIAL COMMENTS - FREE TEXT/NARRATIVE: ED with c/o pain and redness to left hand, Index finger amputated 2 weeks ago for infection. Was on "swingbed" for one week for IVABX. Notes increased redness since stopping antibiotic. Reported was supposed to go To [facility] yesterday for additional per request of Infectious Dz but "ride did not show up. Left Hand Pain Score (Numeric/FACES): 6 - Related Data Allergies Allergy/AdvReac Type Severity Reaction Status Date / Time amoxicillin Allergy Cannot Verified 12/06/17 01:04 Remember cephalexin Allergy Cannot Verified 12/06/17 01:04 Remember ciprofloxacin Allergy Cannot Verified 12/06/17 01:04 Remember nitrofurantoin Allergy Cannot Verified 12/06/17 01:04 Remember NSAIDS (Non-Steroidal Allergy Bleeding Verified 12/06/17 01:04 Anti-Inflamma sumatriptan [From Imitrex] Allergy Hives Verified 12/06/17 01:04 sumatriptan succinate Allergy Hives Verified 12/06/17 01:04 [From Imitrex] Home Meds: Home Meds Insulin Detemir [Levemir Flexpen] 20 unit SQ BID 07/27/13 [History] Multivitamin [Multivitamins] 1 each PO DAILY #30 capsule 09/13/14 [Rx] Ferrous Sulfate [Iron] 325 mg PO DAILY #15 capsule.er 08/07/15 [Rx] Insulin Aspart [Novolog Flexpen] 15 unit SQ QID 12/20/15 [History] Ondansetron [Ondansetron ODT] 8 mg PO Q8H PRN 10/14/16 [History] Pantoprazole [ProTONIX] 40 mg PO DAILY 10/14/16 [History] atorvaSTATin [Lipitor] 40 mg PO DAILY 10/14/16 [History] buPROPion HCl [Wellbutrin Sr] 150 mg PO BID 10/14/16 [History] Gabapentin [Neurontin] 100 mg PO TID 11/04/16 [History] Cefpodoxime [Vantin] 100 mg PO BID 12/29/16 [History] Past Medical History HEENT History: Reports: Impaired Vision Cardiovascular History: Reports: Blood Clots/VTE/DVT, High Cholesterol, Hypertension Respiratory History: Reports: Asthma Gastrointestinal History: Reports: GERD, Hepatitis Other Gastrointestinal History: HEP C Genitourinary History: Reports: Diabetic Nephropathy 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: , 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) Other OB/BYN History: 4 c-sections Musculoskeletal History: Reports: Amputation Other Musculoskeletal History: bell amp Neurological History: Reports: Neuropathy, Diabetic, Neuropathy, Peripheral Psychiatric History: Reports: Addiction Endocrine/Metabolic History: Reports: Diabetes, Type II, IDDM Hematologic History: Reports: Iron Deficiency Immunologic History: Reports: None Oncologic (Cancer) History: Reports: None Dermatologic History: Reports: Cellulitis - Infectious Disease History Infectious Disease History: Reports: C-Difficile, Hepatitis C - Past Surgical History Female Surgical History: Reports: Section, Hysterectomy Neurological Surgical History: Reports: 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) Musculoskeletal Surgical History: Reports: Amputation, 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) Other Musculoskeletal Surgeries/Procedures:: bilateral below the knee amputation , 2nd finger on left hand and 5th finger on right hand Social & Family History - Family History Family Medical History: Noncontributory - Tobacco Use Smoking Status *Q: Never Smoker Second Hand Smoke Exposure: No - Caffeine Use Caffeine Use: Reports: Coffee, Soda - Recreational Drug Use Recreational Drug Use: No - Living Situation & Occupation Living situation: Reports: Single, with Family Occupation: Disabled ED ROS GENERAL - Review of Systems Review Of Systems: See Below Constitutional: Reports: Chills HEENT: Reports: No Symptoms Respiratory: Reports: No Symptoms Cardiovascular: Reports: No Symptoms Endocrine: Reports: High Glucose GI/Abdominal: Reports: No Symptoms Musculoskeletal: Reports: Hand Pain Skin: Reports: Erythema, Wound Neurological: Reports: No Symptoms Psychiatric: Reports: No Symptoms ED EXAM, GENERAL - Physical Exam Exam: See Below Exam Limited By: No Limitations General Appearance: Alert, No Apparent Distress Ears: Normal External Exam Nose: Normal Inspection Throat/Mouth: Normal Inspection Head: Atraumatic, Normocephalic Neck: Normal Inspection Respiratory/Chest: No Respiratory Distress Cardiovascular: Normal Peripheral Pulses, Regular Rate, Rhythm GI/Abdominal: Normal Bowel Sounds, Soft, Non-Tender Extremities: Other (bilateral below knee amputation, left hand recent amputation of index finger at MCP, Incision healed red, Hand swollen) Neurological: Alert, Oriented, Normal Cognition Psychiatric: Normal Affect, Normal Mood Skin Exam: Warm, Dry, Erythema (bilateral hands) Course - Vital Signs Last Recorded V/S: Last Vital Signs Temp 99.6 F 12/06/17 00:57 Pulse 86 12/06/17 00:57 Resp 18 12/06/17 00:57 BP 169/93 H 12/06/17 00:57 Pulse Ox 100 12/06/17 00:57 - Orders/Labs/Meds Orders: Active Orders 24 hr Category Date Time Status Glucose [Blood Glucose Check, Bedside] [RC] ONETIME Care 12/06/17 05:22 Active CULTURE BLOOD [BC] Stat Lab 12/06/17 03:14 Received CULTURE BLOOD [BC] Stat Lab 12/06/17 03:28 Received Blood Culture x2 Reflex Set [OM.PC] Stat Oth 12/06/17 02:16 Ordered Labs: Laboratory Tests 12/06/17 12/06/17 12/06/17 Range/Units 03:14 03:14 03:14 WBC 14.5 H (5.0-10.0) 10^3/uL RBC 2.99 L (4.2-5.4) 10^6/uL Hgb 9.0 L (12.0-16.0) g/dL Hct 27.8 L (37.0-47.0) % MCV 93.0 D (80-100) fL MCH 30.1 (27.0-34.0) pg MCHC 32.4 L (33.0-35.0) g/dL Plt Count 336 D (150-450) 10^3/uL Neut % (Auto) 70.3 (42.2-75.2) % Lymph % (Auto) 18.9 L (20.5-50.1) % [place] % (Auto) 8.3 H (2-8) % Eos % (Auto) 2.2 (1.0-3.0) % Baso % (Auto) 0.3 (0.0-1.0) % Sodium 128 L (135-145) mmol/L Potassium 5.2 H D (3.6-5.0) mmol/L Chloride 105 (101-111) mmol/L Carbon Dioxide 17.0 L (21.0-31.0) mmol/L Anion Gap 11.2 BUN 30 H (7-18) mg/dL Creatinine 2.6 H (0.6-1.3) mg/dL Est Cr Clr Drug Dosing TNP Estimated GFR (MDRD) 20 BUN/Creatinine Ratio 11.53 Glucose 508 H* (74-105) mg/dL POC Glucose (70-105) mg/dl Lactic Acid 1.8 (0.5-2.2) mmol/L Calcium 8.3 L (8.4-10.2) mg/dl Total Bilirubin < 0.1 L (0.2-1.0) mg/dL AST 14 (10-42) IU/L ALT 25 (10-60) IU/L Alkaline Phosphatase 129 H (42-121) IU/L Total Protein 6.2 L (6.7-8.2) g/dl Albumin 1.7 L (3.2-5.5) g/dl Globulin 4.5 Albumin/Globulin Ratio 0.38 Urine Color (YELLOW) Urine Appearance (CLEAR) Urine pH (5.0-9.0) Ur Specific [place] (1.005-1.030) Urine Protein (NEGATIVE) Urine Glucose (UA) (NEGATIVE) Urine Ketones (NEGATIVE) Urine Occult Blood (NEGATIVE) Urine Nitrite (NEGATIVE) Urine Bilirubin (NEGATIVE) Urine Urobilinogen (0.2-1.0) mg/dL Ur Leukocyte Esterase (NEGATIVE) Urine RBC /HPF Urine WBC (0-5/HPF) /HPF Ur Epithelial Cells /HPF Urine Bacteria (0-FEW/HPF) /HPF Urine Opiates Screen (NEGATIVE) Ur Oxycodone Screen (NEGATIVE) Urine Methadone Screen (NEGATIVE) Ur Barbiturates Screen (NEGATIVE) U Tricyclic Antidepress (NEGATIVE) Ur Phencyclidine Scrn (NEGATIVE) Ur Amphetamine Screen (NEGATIVE) U Methamphetamines Scrn (NEGATIVE) Urine MDMA Screen (NEGATIVE) U Benzodiazepines Scrn (NEGATIVE) Urine Cocaine Screen (NEGATIVE) U Marijuana (THC) Screen (NEGATIVE) 12/06/17 12/06/17 12/06/17 Range/Units 03:30 03:30 05:27 WBC (5.0-10.0) 10^3/uL RBC (4.2-5.4) 10^6/uL Hgb (12.0-16.0) g/dL Hct (37.0-47.0) % MCV (80-100) fL MCH (27.0-34.0) pg MCHC (33.0-35.0) g/dL Plt Count (150-450) 10^3/uL Neut % (Auto) (42.2-75.2) % Lymph % (Auto) (20.5-50.1) % [place] % (Auto) (2-8) % Eos % (Auto) (1.0-3.0) % Baso % (Auto) (0.0-1.0) % Sodium (135-145) mmol/L Potassium (3.6-5.0) mmol/L Chloride (101-111) mmol/L Carbon Dioxide (21.0-31.0) mmol/L Anion Gap BUN (7-18) mg/dL Creatinine (0.6-1.3) mg/dL Est Cr Clr Drug Dosing Estimated GFR (MDRD) BUN/Creatinine Ratio Glucose (74-105) mg/dL POC Glucose 415 H* (70-105) mg/dl Lactic Acid (0.5-2.2) mmol/L Calcium (8.4-10.2) mg/dl Total Bilirubin (0.2-1.0) mg/dL AST (10-42) IU/L ALT (10-60) IU/L Alkaline Phosphatase (42-121) IU/L Total Protein (6.7-8.2) g/dl Albumin (3.2-5.5) g/dl Globulin Albumin/Globulin Ratio Urine Color Yellow (YELLOW) Urine Appearance Cloudy (CLEAR) Urine pH 6.0 (5.0-9.0) Ur Specific [place] 1.015 (1.005-1.030) Urine Protein >=300 H (NEGATIVE) Urine Glucose (UA) >=1000 H (NEGATIVE) Urine Ketones Negative (NEGATIVE) Urine Occult Blood Moderate H (NEGATIVE) Urine Nitrite Negative (NEGATIVE) Urine Bilirubin Negative (NEGATIVE) Urine Urobilinogen 0.2 (0.2-1.0) mg/dL Ur Leukocyte Esterase Small H (NEGATIVE) Urine RBC >100 H /HPF Urine WBC 0-5 (0-5/HPF) /HPF Ur Epithelial Cells Moderate H /HPF Urine Bacteria Many H (0-FEW/HPF) /HPF Urine Opiates Screen Negative (NEGATIVE) Ur Oxycodone Screen Negative (NEGATIVE) Urine Methadone Screen Negative (NEGATIVE) Ur Barbiturates Screen Negative (NEGATIVE) U Tricyclic Antidepress Negative (NEGATIVE) Ur Phencyclidine Scrn Negative (NEGATIVE) Ur Amphetamine Screen Negative (NEGATIVE) U Methamphetamines Scrn Negative (NEGATIVE) Urine MDMA Screen Negative (NEGATIVE) U Benzodiazepines Scrn Negative (NEGATIVE) Urine Cocaine Screen Negative (NEGATIVE) U Marijuana (THC) Screen Negative (NEGATIVE) Meds: Medications Discontinued Medications Generic Name Dose Route Start Last Admin Trade Name Freq PRN Reason Stop Dose Admin Clindamycin HCl 300 mg 12/06/17 04:38 12/06/17 04:51 Cleocin PO 12/06/17 04:39 300 mg ONETIME ONE Administration Insulin Human Regular 10 unit 12/06/17 04:18 12/06/17 04:24 Humulin R SUBCUT 12/06/17 04:19 10 units ONETIME ONE Administration Insulin Human Regular 5 unit 12/06/17 05:50 12/06/17 06:10 Humulin R IV 12/06/17 05:51 Not Given ONETIME ONE Insulin Human Regular 5 unit 12/06/17 05:53 12/06/17 05:56 Humulin R SUBCUT 12/06/17 05:54 5 units ONETIME ONE Administration Oxycodone/Acetaminophen 1 tab 12/06/17 04:19 12/06/17 04:26 Percocet 325-5 Mg PO 12/06/17 04:20 1 tab ONETIME ONE Administration - Re-Assessments/Exams Free Text/Narrative Re-Assessment/Exam: 12/06/17 05:59 [facility] on diversion during night, Unable to accept. Dr. Ingris Dhaliwal accepting of patient. Unable to initiate IV site. Tx via [facility] Departure - Departure Time of Disposition: 06:15 Disposition: DC/Tfer to Acute Hospital 02 Condition: Fair Clinical Impression: Cellulitis of hand, Hyperglycemia, Hyperkalemia, Hyponatremia Anemia Qualifiers: Anemia type: unspecified type Qualified Code(s): D64.9 - Anemia, unspecified CKD (chronic kidney disease) Qualifiers: Chronic kidney disease stage: unspecified stage Qualified Code(s): N18.9 - Chronic kidney disease, unspecified - Discharge Information Forms: ED Department Discharge - My Orders Last 24 Hours: My Active Orders 12/06/17 02:16 Blood Culture x2 Reflex Set [OM.PC] Stat 12/06/17 03:14 CULTURE BLOOD [BC] Stat 12/06/17 03:28 CULTURE BLOOD [BC] Stat 12/06/17 05:22 Glucose [Blood Glucose Check, Bedside] [RC] ONETIME - Assessment/Plan Last 24 Hours: My Active Orders 12/06/17 02:16 Blood Culture x2 Reflex Set [OM.PC] Stat 12/06/17 03:14 CULTURE BLOOD [BC] Stat 12/06/17 03:28 CULTURE BLOOD [BC] Stat 12/06/17 05:22 Glucose [Blood Glucose Check, Bedside] [RC] ONETIME
== END 2017-12-06 06:18 ==
LOC: DL.ED 00:56
DX: L03.114 Cellulitis of left upper limb (principal); L03.113 Cellulitis of right upper limb; E11.65 Type 2 diabetes mellitus with hyperglycemia; E87.5 Hyperkalemia; D64.9 Anemia, unspecified; E87.1 Hypo-osmolality and hyponatremia; E11.22 Type 2 diabetes mellitus with diabetic chronic kidney disease; N18.9 Chronic kidney disease, unspecified; E78.00 Pure hypercholesterolemia, unspecified; E11.42 Type 2 diabetes mellitus with diabetic polyneuropathy; E11.21 Type 2 diabetes mellitus with diabetic nephropathy; I12.9 Hypertensive chronic kidney disease with stage 1 through stage 4 chronic kidney disease, or unspecified chronic kidney disease; Z88.1 Allergy status to other antibiotic agents; Z88.8 Allergy status to other drugs, medicaments and biological substances; Z79.4 Long term (current) use of insulin; Z79.899 Other long term (current) drug therapy
CPT/HCPCS: 36415; 73120; 80053; 80305; 81001; 82962; 83605; 85025; 87040; 99285; A9270; J1815

== ENCOUNTER 2018-07-28 10:20 | Emergency (ER) | payer MEDICAID, OTHER ==
[2018-07-28] MEDS ORDERED: Sodium Chloride 0.9% 10 ML Syringe FLUSH PRN (11:30)
--- NOTE | 2018-07-28 11:33 | EDM.PDOC ---
ED HPI GENERAL MEDICAL PROBLEM - General Stated Complaint: UNKNOWN Time Seen by Provider: 07/28/18 12:00 Source of Information: Reports: Patient, EMS, Provider History Limitations: Reports: No Limitations - History of Present Illness INITIAL COMMENTS - FREE TEXT/NARRATIVE: PATIENT COMES EMERGENCY dEPARTMENT TODAY BY AMBULANCE WITH CONCERNS OF A FEVER. most of the history is obtained from the patient's primary [facility] provider Dr. Seth. According to Dr. Seth on Friday the patient had a fever of 100.1. She has had recurrent infections in multiple sites throughout her body and she was supposed to be on vancomycin. She has been receiving vancomycin 1250 mg every day. she is not requiring dialysis at this time but she is getting close. She has a history of amputations as well as hepatitis C. Today they did some laboratory evaluation and found that she had a hemoglobin of 6.9 with continued creatinine problems and an elevated CRP. She was sent to the emergency department for further evaluation prior to transfer to [place]. Patient reports that she just feels tired. Fever and chills. No sores or lesions on her skin. No chest pain no shortness of breath difficulty breathing or cough. No vomiting no diarrhea. No black or tarry stools. No vomiting of blood. Left Hip Pain Score (Numeric/FACES): 8 - Related Data Allergies Allergy/AdvReac Type Severity Reaction Status Date / Time amoxicillin Allergy Cannot Verified 05/02/18 22:29 Remember cephalexin Allergy Cannot Verified 05/02/18 22:29 Remember ciprofloxacin Allergy Cannot Verified 05/02/18 22:29 Remember nitrofurantoin Allergy Cannot Verified 05/02/18 22:29 Remember NSAIDS (Non-Steroidal Allergy Bleeding Verified 05/02/18 22:29 Anti-Inflamma sumatriptan [From Imitrex] Allergy Hives Verified 05/02/18 22:29 sumatriptan succinate Allergy Hives Verified 05/02/18 22:29 [From Imitrex] Home Meds: Home Meds Insulin Detemir [Levemir Flexpen] 20 unit SQ BID 07/27/13 [History] Multivitamin [Multivitamins] 1 each PO DAILY #30 capsule 09/13/14 [Rx] Ferrous Sulfate [Iron] 325 mg PO DAILY #15 capsule.er 08/07/15 [Rx] Insulin Aspart [Novolog Flexpen] 15 unit SQ QID 12/20/15 [History] Ondansetron [Ondansetron ODT] 8 mg PO Q8H PRN 10/14/16 [History] Pantoprazole [ProTONIX] 40 mg PO DAILY 10/14/16 [History] atorvaSTATin [Lipitor] 40 mg PO DAILY 10/14/16 [History] buPROPion HCl [Wellbutrin Sr] 150 mg PO BID 10/14/16 [History] Gabapentin [Neurontin] 100 mg PO TID 11/04/16 [History] Cefpodoxime [Vantin] 100 mg PO BID 12/29/16 [History] Past Medical History HEENT History: Reports: Impaired Vision Cardiovascular History: Reports: Blood Clots/VTE/DVT, High Cholesterol, Hypertension Respiratory History: Reports: Asthma Gastrointestinal History: Reports: GERD, Hepatitis Other Gastrointestinal History: HEP C Genitourinary History: Reports: Diabetic Nephropathy 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: , 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) 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 Musculoskeletal History: Reports: Amputation Other Musculoskeletal History: bell amp Neurological History: Reports: Neuropathy, Diabetic, Neuropathy, Peripheral Psychiatric History: Reports: Addiction Endocrine/Metabolic History: Reports: Diabetes, Type II, IDDM Hematologic History: Reports: Iron Deficiency Immunologic History: Reports: None Oncologic (Cancer) History: Reports: None Dermatologic History: Reports: Cellulitis - Infectious Disease History Infectious Disease History: Reports: C-Difficile, Hepatitis C - Past Surgical History Female Surgical History: Reports: Section, Hysterectomy Neurological Surgical History: Reports: 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) Musculoskeletal Surgical History: Reports: Amputation, 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) Other Musculoskeletal Surgeries/Procedures:: bilateral below the knee amputation , 2nd finger on left hand and 5th finger on right hand Social & Family History - Family History Family Medical History: Noncontributory - Caffeine Use Caffeine Use: Reports: Coffee - Living Situation & Occupation Living situation: Reports: Single, with Family Occupation: Disabled Review of Systems - Review of Systems Review Of Systems: ROS reveals no pertinent complaints other than HPI. ED EXAM, GENERAL - Physical Exam Exam: See Below Exam Limited By: No Limitations General Appearance: Alert, WD/WN, No Apparent Distress Head: Atraumatic, Normocephalic Neck: Normal Inspection, Supple, Non-Tender Respiratory/Chest: No Respiratory Distress, Lungs Clear, Normal Breath Sounds, No Accessory Muscle Use Cardiovascular: Normal Peripheral Pulses, Regular Rate, Rhythm Peripheral Pulses: 2+: Radial (L), Radial (R) GI/Abdominal: Normal Bowel Sounds, Soft, Non-Tender, No Distention Back Exam: Normal Inspection, Full Range of Motion Extremities: No: Normal Inspection (she is a bilateral amputee both of the stumps appear well-healed and no open sores.Her upper extremities are pink warm and dry.) Neurological: Alert, Oriented, Normal Cognition, No Motor/Sensory Deficits Psychiatric: Normal Affect, Normal Mood Skin Exam: Warm, Dry, Intact, Normal Color Lymphatic: No Adenopathy Course - Vital Signs Last Recorded V/S: Last Vital Signs Temp 37.7 C 07/28/18 11:55 Pulse 67 07/28/18 11:55 Resp 15 07/28/18 11:55 BP 111/53 L 07/28/18 11:55 Pulse Ox 98 07/28/18 11:55 - Orders/Labs/Meds Labs: Laboratory Tests 07/28/18 07/28/18 07/28/18 Range/Units 12:16 12:21 12:21 WBC 8.1 (5.0-10.0) 10^3/uL RBC 2.65 L (4.2-5.4) 10^6/uL Hgb 7.6 L D (12.0-16.0) g/dL Hct 25.0 L (37.0-47.0) % MCV 94.3 D (80-100) fL MCH 28.7 (27.0-34.0) pg MCHC 30.4 L (33.0-35.0) g/dL Plt Count 362 (150-450) 10^3/uL Neut % (Auto) 56.4 (42.2-75.2) % Lymph % (Auto) 27.9 (20.5-50.1) % [place] % (Auto) 9.5 H (2-8) % Eos % (Auto) 5.8 H (1.0-3.0) % Baso % (Auto) 0.4 (0.0-1.0) % PT (9.0-12.0) SEC INR (0.9-1.2) Sodium 133 L (135-145) mmol/L Potassium 5.9 H D (3.6-5.0) mmol/L Chloride 107 (101-111) mmol/L Carbon Dioxide 18.0 L (21.0-31.0) mmol/L Anion Gap 13.9 BUN 40 H (7-18) mg/dL Creatinine 2.6 H (0.6-1.3) mg/dL Est Cr Clr Drug Dosing 18.80 mL/min Estimated GFR (MDRD) 20 BUN/Creatinine Ratio 15.38 Glucose 300 H (74-105) mg/dL Lactic Acid 1.1 (0.5-2.2) mmol/L Calcium 7.6 L (8.4-10.2) mg/dl Total Bilirubin 0.4 (0.2-1.0) mg/dL AST 30 (10-42) IU/L ALT 40 (10-60) IU/L Alkaline Phosphatase 111 (42-121) IU/L C-Reactive Protein (0.0-1.3) mg/dL Total Protein 6.5 L (6.7-8.2) g/dl Albumin 2.0 L (3.2-5.5) g/dl Globulin 4.5 Albumin/Globulin Ratio 0.44 Urine Color (YELLOW) Urine Appearance (CLEAR) Urine pH (5.0-9.0) Ur Specific [place] (1.005-1.030) Urine Protein (NEGATIVE) Urine Glucose (UA) (NEGATIVE) Urine Ketones (NEGATIVE) Urine Occult Blood (NEGATIVE) Urine Nitrite (NEGATIVE) Urine Bilirubin (NEGATIVE) Urine Urobilinogen (0.2-1.0) mg/dL Ur Leukocyte Esterase (NEGATIVE) Urine RBC /HPF Urine WBC (0-5/HPF) /HPF Ur Epithelial Cells /HPF Urine Bacteria (0-FEW/HPF) /HPF Urine Mucus /LPF 07/28/18 07/28/18 07/28/18 Range/Units 12:34 12:34 13:37 WBC (5.0-10.0) 10^3/uL RBC (4.2-5.4) 10^6/uL Hgb (12.0-16.0) g/dL Hct (37.0-47.0) % MCV (80-100) fL MCH (27.0-34.0) pg MCHC (33.0-35.0) g/dL Plt Count (150-450) 10^3/uL Neut % (Auto) (42.2-75.2) % Lymph % (Auto) (20.5-50.1) % [place] % (Auto) (2-8) % Eos % (Auto) (1.0-3.0) % Baso % (Auto) (0.0-1.0) % PT 10.0 (9.0-12.0) SEC INR 1.0 (0.9-1.2) Sodium (135-145) mmol/L Potassium (3.6-5.0) mmol/L Chloride (101-111) mmol/L Carbon Dioxide (21.0-31.0) mmol/L Anion Gap BUN (7-18) mg/dL Creatinine (0.6-1.3) mg/dL Est Cr Clr Drug Dosing mL/min Estimated GFR (MDRD) BUN/Creatinine Ratio Glucose (74-105) mg/dL Lactic Acid (0.5-2.2) mmol/L Calcium (8.4-10.2) mg/dl Total Bilirubin (0.2-1.0) mg/dL AST (10-42) IU/L ALT (10-60) IU/L Alkaline Phosphatase (42-121) IU/L C-Reactive Protein 1.3 (0.0-1.3) mg/dL Total Protein (6.7-8.2) g/dl Albumin (3.2-5.5) g/dl Globulin Albumin/Globulin Ratio Urine Color Yellow (YELLOW) Urine Appearance Cloudy (CLEAR) Urine pH 7.5 (5.0-9.0) Ur Specific [place] 1.025 (1.005-1.030) Urine Protein >=300 H (NEGATIVE) Urine Glucose (UA) 100 H (NEGATIVE) Urine Ketones Negative (NEGATIVE) Urine Occult Blood Small H (NEGATIVE) Urine Nitrite Negative (NEGATIVE) Urine Bilirubin Negative (NEGATIVE) Urine Urobilinogen 0.2 (0.2-1.0) mg/dL Ur Leukocyte Esterase Large H (NEGATIVE) Urine RBC 5-10 H /HPF Urine WBC Packed H (0-5/HPF) /HPF Ur Epithelial Cells Few /HPF Urine Bacteria Many H (0-FEW/HPF) /HPF Urine Mucus Not seen /LPF Meds: Medications Discontinued Medications Generic Name Dose Route Start Last Admin Trade Name Freq PRN Reason Stop Dose Admin Calcium Gluconate 1 gm 07/28/18 12:45 07/28/18 14:05 Calcium Gluconate IVPUSH 07/28/18 12:46 Not Given ONETIME ONE Dextrose/Water 50 ml 07/28/18 12:44 07/28/18 14:05 Dextrose 50% In Water IVPUSH 07/28/18 12:45 Not Given ONETIME ONE Doxycycline Hyclate 100 mg 07/28/18 14:02 07/28/18 14:11 Vibramycin PO 07/28/18 14:03 100 mg ONETIME ONE Administration Hydromorphone HCl 1 mg 07/28/18 13:57 07/28/18 14:01 Dilaudid IM 07/28/18 13:58 1 mg ONETIME ONE Administration Insulin Human Regular 10 unit 07/28/18 12:44 07/28/18 14:09 Humulin R IV 07/28/18 12:45 Not Given ONETIME ONE Sodium Bicarbonate 50 meq 07/28/18 12:44 07/28/18 13:31 Sodium Bicarbonate 8.4% IVPUSH 07/28/18 12:45 50 meq ONETIME ONE Administration Sodium Chloride 10 ml 07/28/18 11:30 07/28/18 13:31 Saline Flush FLUSH 10 ml ASDIRECTED PRN Administration Keep Vein Open - Re-Assessments/Exams Free Text/Narrative Re-Assessment/Exam: 07/29/18 19:04 blood cultures 2 drawn. Culture obtained Urinalysis is clearly infectious. It is noted that her hemoglobin is still quite low. Her potassium is elevated and her creatinine is at about baseline. Multiple attempts to place an IV was unsuccessful even when I tried with a peripheral Ultrasound guidance and anesthesia tried and I also attempted EJ without success. I spoke with DR. Flynn and he accepted the patient despite the inability to get an IV. I will give her some doxycycline for her UTI which isn't optimal but her list of allergies makes any medication therapy almost none existent. She was transfered in stable condition. Departure - Departure Time of Disposition: 13:25 Disposition: DC/Tfer to [facility] 02 Clinical Impression: Hyperkalemia, Hyponatremia Anemia Qualifiers: Anemia type: unspecified type Qualified Code(s): D64.9 - Anemia, unspecified CRF (chronic renal failure) Qualifiers: Chronic kidney disease stage: unspecified stage Qualified Code(s): N18.9 - Chronic kidney disease, unspecified - Discharge Information Referrals: PCP,None [Primary Care Provider] - Forms: ED Department Discharge - Assessment/Plan Assessment:: UTI sepsis without septic shock Hyperkalemia Hyponatremia CRF Hep C. Plan: ransfer by ground ambulance to [facility]
--- NOTE | 2018-07-28 11:51 | PCM.SN ---
- Free Text/Narrative Note: July 28, 2018 Transfer Note Yamile Jorge is a 48-year-old female with multiple previous admissions to [facility]. Her last hospitalization was 06/23-06/26/18 for a left displaced femoral neck fracture. No surgery was done, because of her multiple medical issues and multiple infections. She was transferred to the [facility] in [place]. Discharge planning had been started. Nursing staff called overnight to report a fever and issues with her urine. Labs were ordered for this morning: CBC, CMP, ESR, CRP, UA and culture. Lab called with critical values: Hgb/Hct of 6.9 and 21.7. Potassium of 5.7. GFR unchanged at 20. No urine sample was sent to lab this morning. [facility] at prison:Temp was 100.1 on morning of 07/26, but was not reported until late last night. Temp overnight was 99.5 and 99.0 this morning. Vital signs this morning: BP 137/69. HR 73. RR 18. Ox Sat 95% on room air. Temp 100.1. No cough, no vomiting, no loose stools, vaginal discharge noted (green, slimy per nursing staff). Blood sugar 128. C. Diff infection: When Yamile was discharged from [facility] on 06/13/18, she was given Vanco susp for documented C. Diff infection. It was unclear if she even took or finished the Vanco after discharge. When she was admitted to [facility], she did have loose stools and we placed her back on a tapering dose of Vanco Solution. This was started on 07/03/2018; her current dose is down to 125 mg once daily for two more days, then 125 mg every other day until completion. PLAN: 1. Yamile will be sent from [facility] to the ER at [facility]. They will see her prior to transfer to [facility]. They will get a CXR, urine and blood for culture. They will treat the hyperkalemia. 2. I reviewed her history and current problems with Jj Porter, BRIA, ER provider. A copy of this morning's lab were sent to the ER. Most recent discharge information was also sent to provider. 3. I called [facility]. Dr. Brooks accepted Yamile for transfer at 10:13. [facility] was informed that she has been accepted. They will call [facility] with an update before transfer.
[2018-07-28 11:58] VITALS: BP 111/53
[2018-07-28] MEDS ORDERED: Sodium Bicarbonate 8.4% 50 MEQ/50 ML Syringe IVPUSH ONE (12:44)
[2018-07-28 12:45] LABS: ANION GAP 13.9
[2018-07-28] MEDS: Calcium Gluconate 10% 1 GM/10 ML SDV IVPUSH ONE ×2 (13:29→14:05)
[2018-07-28] MEDS: 50% Dextrose in Water 50 ML Syringe IVPUSH ONE ×2 (13:30→14:05)
[2018-07-28] MEDS: Insulin Regular, Human 100 Units/ML 3 ML Vial IV ONE ×2 (13:30→14:09)
[2018-07-28] MEDS ORDERED: HYDROmorphone 1 MG/ML Syringe IM ONE (13:57)
[2018-07-28] MEDS ORDERED: Doxycycline 100 MG Cap PO ONE (14:02)
== END 2018-07-28 14:15 ==
LOC: DL.ED 10:20
DX: I12.9 Hypertensive chronic kidney disease with stage 1 through stage 4 chronic kidney disease, or unspecified chronic kidney disease (principal); E11.42 Type 2 diabetes mellitus with diabetic polyneuropathy; E11.21 Type 2 diabetes mellitus with diabetic nephropathy; E78.00 Pure hypercholesterolemia, unspecified; E87.5 Hyperkalemia; E11.22 Type 2 diabetes mellitus with diabetic chronic kidney disease; E87.1 Hypo-osmolality and hyponatremia; N18.9 Chronic kidney disease, unspecified; D63.1 Anemia in chronic kidney disease; Z88.1 Allergy status to other antibiotic agents; Z88.8 Allergy status to other drugs, medicaments and biological substances; Z79.4 Long term (current) use of insulin
CPT/HCPCS: 36415; 80053; 81001; 83605; 85025; 85610; 86140; 87040; 87086; 93005; 96372; 96374; 99285; A9270; J1170; J1815; 87088; 87186; J0610; J7060